=== PATIENT | male | born 1985 | race Caucasian/White ===

== ENCOUNTER 2017-08-20 14:36 | Inpatient (IN) ==
[2017-08-20] MEDS ORDERED: Sod Chloride 0.9% Inj 700 ML IV.SIG SCH (15:00)
[2017-08-20] MEDS ORDERED: Sod Chloride 0.9% Inj 1,000 ML IV.SIG SCH ×2 (15:00)
[2017-08-20] MEDS ORDERED: Vancomycin Inj 1 GM/200 ML PIGGYBACK IV.SIG ONE (15:02)
--- NOTE | 2017-08-20 15:17 | ED ---
HPI General Chief complaint: Psychiatric Symptoms Stated complaint: Psych Eval / [facility] / [facility] SO Time Seen by Provider: 08/20/17 14:57 History of Present Illness HPI narrative: Patient comes emergency department under [place] act by police. Patient denies any homicidal or suicidal ideations. Patient states that he did IV Dilaudid last night secondary to his back pain. Patient states that he was in [facility] was in the hospital there for 2 weeks after finding a "cyst" in his lumbar spine. Patient reports he was on antibiotics of Ancef was supposed be on it for total 6 weeks however he left [place] and came to [facility]. Pain is worse with certain movement. Denies anything making it better. Describes pain as a sharp pain without radiation. Denies any fevers. Loss or change in bowel or bladder. Patient is not been emptying his bladder completely for over a year now. States he saw a urologist for this. Patient is he has not slept in 2 days. Related Data Home Medications Medication Instructions Recorded Confirmed No Known Home Medications 08/20/17 08/20/17 Allergies Allergy/AdvReac Type Severity Reaction Status Date / Time piperacillin [From Zosyn] Allergy unknown Verified 08/20/17 14:58 tazobactam [From Zosyn] Allergy unknown Verified 08/20/17 14:58 Review of Systems Except as stated in HPI: all other systems reviewed are negative PMFSH Social History Social History Second Hand Smoke Exposure: Yes Smoking Status: Current every day smoker Tobacco Type: Cigarettes How Often Do You Have a Drink Containing Alcohol: 2 to 3 times a week Recent Travel in [facility] within the Last 8 Weeks: No Recent Out of Country Travel within the Last 8 Weeks: No Exam Narrative Exam Narrative: GENERAL: Well-developed, well nourished, in no acute distress, and non-ill appearing. SKIN: Focused skin assessment warm and dry. Track garcia noted upper extremity. HEAD: Atraumatic. Normocephalic. EYES: Pupils equal and round. EOMI. No scleral icterus. No injection or drainage. ENT: No nasal bleeding or discharge. Mucous membranes pink and moist. NECK: Trachea midline. Supple. No nuclear rigidity. CARDIOVASCULAR: Regular rate and rhythm. No murmur appreciated. RESPIRATORY: No accessory muscle use. No respiratory distress. Clear to auscultation. Breath sounds equal bilaterally. GASTROINTESTINAL: Abdomen soft, non-tender, nondistended, and no guarding. Hepatic and splenic margins not palpable. No pulsatile mass. MUSCULOSKELETAL: No obvious deformities. No clubbing. No cyanosis. No edema. Full range of motion. Normal gait. Patient reports tenderness palpation paravertebral spinal muscle left of the upper lumbar lower thoracic spine. NEUROLOGICAL: Awake and alert. No obvious cranial nerve deficits. Motor grossly within normal limits. Normal speech. PSYCHIATRIC: Appropriate mood and affect; insight and judgment normal. Course Initial Documented Vital Signs Temperature 100.3 F H 08/20/17 14:44 Pulse Rate 124 H 08/20/17 14:44 Respiratory Rate 16 08/20/17 14:44 Blood Pressure 123/89 08/20/17 14:44 Pulse Oximetry 96 08/20/17 14:44 Last Documented Vital Signs Temperature 100.3 F H 08/20/17 14:44 Pulse Rate 86 08/20/17 19:20 Respiratory Rate 12 08/20/17 19:20 Blood Pressure 131/80 08/20/17 19:20 Pulse Oximetry 96 08/20/17 19:20 Sign Out Sign Out Data: Patient Sign Out occurred on 08/20/17 at 19:01. Patient's care was discussed, and care was transferred from ROSY Vargas to ROSY Camejo. Sign Out Comment: Patient signed out very better pending MRI results. Last updated by Abdiel Flores PA at 08/20/17 18:58 Post-Handoff Eval: See previous providers notes for complete history of present illness. I seemed care of this patient pending MRI imaging results. He has previously received Rocephin, vancomycin and Flagyl. MRI of the lumbar spine reveals an epidural abscess at the L2-L3 space. He has low-grade fever. I discussed results with Dr. Christine who recommends Rocephin, vancomycin, admission to medicine, consultation to himself, npo after midnight. Medical Decision Making Lab Data Result diagrams: 08/20/17 14:46 08/20/17 14:46 Lab Results 08/20/17 08/20/17 08/20/17 Range/Units 14:46 14:46 14:46 WBC 11.3 H (4.0-11.0) th/mm3 RBC 3.95 L (4.50-5.90) mil/mm3 Hgb 11.7 L (13.0-17.0) gm/dL Hct 34.5 L (39.0-51.0) % MCV 87.4 (80.0-100.0) fL MCH 29.5 (27.0-34.0) pg MCHC 33.8 (32.0-36.0) % RDW 14.2 (11.6-17.2) % Plt Count 357 (150-450) th/mm3 MPV 9.1 (7.0-11.0) fL Neut % (Auto) 66.0 (16.0-70.0) % Lymph % (Auto) 20.4 (9.0-44.0) % [place] % (Auto) 8.9 H (0.0-8.0) % Eos % (Auto) 2.0 (0.0-4.0) % Baso % (Auto) 2.7 H (0.0-2.0) % Neut # (Auto) 7.5 (1.8-7.7) th/mm3 Lymph # (Auto) 2.3 (1.0-4.8) th/mm3 [place] # (Auto) 1.0 H (0.0-0.9) th/mm3 Eos # (Auto) 0.2 (0.0-0.4) th/mm3 Baso # (Auto) 0.3 H (0.0-0.2) th/mm3 WBC Differential . Differential Comment Auto diff final Sodium 133 L (136-145) meq/L Potassium 4.2 (3.5-5.1) meq/L Chloride 94 L (98-107) meq/L Carbon Dioxide 29.3 (21.0-32.0) meq/L Anion Gap 10 (5-15) meq/L BUN 16 (7-18) mg/dL Creatinine 1.10 (0.60-1.30) mg/dL Estimated GFR 79 L (>89) mL/min Random Glucose 101 (74-106) mg/dL Lactic Acid (0.4-2.0) mmol/L Calcium 9.2 (8.5-10.1) mg/dL Total Bilirubin 0.5 (0.2-1.0) mg/dL AST 84 H (15-37) U/L ALT 137 H (12-78) U/L Alkaline Phosphatase 129 H (45-117) U/L Total Creatine Kinase (39-308) U/L CK-MB (CK-2) (0.5-3.6) ng/mL CK-MB (CK-2) % (0.0-4.0) % Total Protein 8.9 H (6.4-8.2) g/dL Albumin 4.0 (3.4-5.0) g/dL TSH 0.743 (0.358-3.740) uIU/mL Urine Color (Yellw/Straw) Urine Clarity (Clear) Urine pH (5.0-8.5) Ur Specific [place] (1.002-1.035) Urine Protein (Neg-Trace) mg/dL Urine Glucose (UA) (Negative) mg/dL Urine Ketones (Negative) mg/dL Urine Occult Blood (Negative) Urine Nitrate (Negative) Urine Bilirubin (Negative) Urine Urobilinogen (Less than 2) mg/dL Ur Leukocyte Esterase (Negative) Urine RBC (0-3) /hpf Urine WBC (0-5) /hpf Urine Mucus (Occasional) /lpf Micro UA Comment Salicylates 1.8 L (2.8-20.0) mg/dL Urine Opiates Screen (Neg) Acetaminophen Less than 2.0 L (10.0-30.0) mcg/mL Ur Barbiturates Screen (Neg) Ur Amphetamines Screen (Neg) U Benzodiazepines Scrn (Neg) Urine Cocaine Screen (Neg) U Cannabinoids Screen (Neg) Serum Alcohol 3 (0-5) mg/dL 08/20/17 08/20/17 08/20/17 Range/Units 14:46 16:10 16:30 WBC (4.0-11.0) th/mm3 RBC (4.50-5.90) mil/mm3 Hgb (13.0-17.0) gm/dL Hct (39.0-51.0) % MCV (80.0-100.0) fL MCH (27.0-34.0) pg MCHC (32.0-36.0) % RDW (11.6-17.2) % Plt Count (150-450) th/mm3 MPV (7.0-11.0) fL Neut % (Auto) (16.0-70.0) % Lymph % (Auto) (9.0-44.0) % [place] % (Auto) (0.0-8.0) % Eos % (Auto) (0.0-4.0) % Baso % (Auto) (0.0-2.0) % Neut # (Auto) (1.8-7.7) th/mm3 Lymph # (Auto) (1.0-4.8) th/mm3 [place] # (Auto) (0.0-0.9) th/mm3 Eos # (Auto) (0.0-0.4) th/mm3 Baso # (Auto) (0.0-0.2) th/mm3 WBC Differential Differential Comment Sodium (136-145) meq/L Potassium (3.5-5.1) meq/L Chloride (98-107) meq/L Carbon Dioxide (21.0-32.0) meq/L Anion Gap (5-15) meq/L BUN (7-18) mg/dL Creatinine (0.60-1.30) mg/dL Estimated GFR (>89) mL/min Random Glucose (74-106) mg/dL Lactic Acid 0.6 (0.4-2.0) mmol/L Calcium (8.5-10.1) mg/dL Total Bilirubin (0.2-1.0) mg/dL AST (15-37) U/L ALT (12-78) U/L Alkaline Phosphatase (45-117) U/L Total Creatine Kinase 515 H (39-308) U/L CK-MB (CK-2) 1.9 (0.5-3.6) ng/mL CK-MB (CK-2) % 0.4 (0.0-4.0) % Total Protein (6.4-8.2) g/dL Albumin (3.4-5.0) g/dL TSH (0.358-3.740) uIU/mL Urine Color (Yellw/Straw) Urine Clarity (Clear) Urine pH (5.0-8.5) Ur Specific [place] (1.002-1.035) Urine Protein (Neg-Trace) mg/dL Urine Glucose (UA) (Negative) mg/dL Urine Ketones (Negative) mg/dL Urine Occult Blood (Negative) Urine Nitrate (Negative) Urine Bilirubin (Negative) Urine Urobilinogen (Less than 2) mg/dL Ur Leukocyte Esterase (Negative) Urine RBC (0-3) /hpf Urine WBC (0-5) /hpf Urine Mucus (Occasional) /lpf Micro UA Comment Salicylates (2.8-20.0) mg/dL Urine Opiates Screen Pos H (Neg) Acetaminophen (10.0-30.0) mcg/mL Ur Barbiturates Screen Neg (Neg) Ur Amphetamines Screen Pos H (Neg) U Benzodiazepines Scrn Neg (Neg) Urine Cocaine Screen Pos (Neg) U Cannabinoids Screen Neg (Neg) Serum Alcohol (0-5) mg/dL 08/20/17 Range/Units 16:30 WBC (4.0-11.0) th/mm3 RBC (4.50-5.90) mil/mm3 Hgb (13.0-17.0) gm/dL Hct (39.0-51.0) % MCV (80.0-100.0) fL MCH (27.0-34.0) pg MCHC (32.0-36.0) % RDW (11.6-17.2) % Plt Count (150-450) th/mm3 MPV (7.0-11.0) fL Neut % (Auto) (16.0-70.0) % Lymph % (Auto) (9.0-44.0) % [place] % (Auto) (0.0-8.0) % Eos % (Auto) (0.0-4.0) % Baso % (Auto) (0.0-2.0) % Neut # (Auto) (1.8-7.7) th/mm3 Lymph # (Auto) (1.0-4.8) th/mm3 [place] # (Auto) (0.0-0.9) th/mm3 Eos # (Auto) (0.0-0.4) th/mm3 Baso # (Auto) (0.0-0.2) th/mm3 WBC Differential Differential Comment Sodium (136-145) meq/L Potassium (3.5-5.1) meq/L Chloride (98-107) meq/L Carbon Dioxide (21.0-32.0) meq/L Anion Gap (5-15) meq/L BUN (7-18) mg/dL Creatinine (0.60-1.30) mg/dL Estimated GFR (>89) mL/min Random Glucose (74-106) mg/dL Lactic Acid (0.4-2.0) mmol/L Calcium (8.5-10.1) mg/dL Total Bilirubin (0.2-1.0) mg/dL AST (15-37) U/L ALT (12-78) U/L Alkaline Phosphatase (45-117) U/L Total Creatine Kinase (39-308) U/L CK-MB (CK-2) (0.5-3.6) ng/mL CK-MB (CK-2) % (0.0-4.0) % Total Protein (6.4-8.2) g/dL Albumin (3.4-5.0) g/dL TSH (0.358-3.740) uIU/mL Urine Color Yellow (Yellw/Straw) Urine Clarity Clear (Clear) Urine pH 5.0 (5.0-8.5) Ur Specific [place] 1.020 (1.002-1.035) Urine Protein Negative (Neg-Trace) mg/dL Urine Glucose (UA) Negative (Negative) mg/dL Urine Ketones Negative (Negative) mg/dL Urine Occult Blood Negative (Negative) Urine Nitrate Negative (Negative) Urine Bilirubin Negative (Negative) Urine Urobilinogen 2.0 H (Less than 2) mg/dL Ur Leukocyte Esterase Negative (Negative) Urine RBC Less than 1 (0-3) /hpf Urine WBC 2 (0-5) /hpf Urine Mucus Few H (Occasional) /lpf Micro UA Comment Culture not ind Salicylates (2.8-20.0) mg/dL Urine Opiates Screen (Neg) Acetaminophen (10.0-30.0) mcg/mL Ur Barbiturates Screen (Neg) Ur Amphetamines Screen (Neg) U Benzodiazepines Scrn (Neg) Urine Cocaine Screen (Neg) U Cannabinoids Screen (Neg) Serum Alcohol (0-5) mg/dL Imaging Data Radiologist's impression: ITS Impressions Lumbar Spine MRI 08/20/17 14:58 CONCLUSION: 1. Posterior epidural abscess. This is at the L2-L3 level. This left the inflammatory change appears to be centered around the left L2-3 facet joint with extension in the posterior epidural space and the posterior paraspinous soft tissues. The abscess in the posterior epidural space measures approximately 1.6 cm in diameter. There is a 1.2 x 0.8 x 0.6 cm small abscess in the posterior left paraspinous soft tissues. 2. Mild disc protrusion at the left lateral recess and left neural foraminal region causing narrowing of the left neural foramina at the L4-L5 level. Thoracic Spine MRI 08/20/17 14:58 CONCLUSION: 1. No areas of discitis or osteomyelitis are seen. 2. Mild disc changes at the mid thoracic spine as described above. Discharge Plan Discharge Disposition Patient Disposition: 30 Still Patient Discharge Condition Condition: Stable Discharge Details Discharge Problem: Epidural abscess Physicians Team ED Provider: Damien Cam ED Midlevel Provider: Albert Noble Primary Care Provider: Primary Care Shruti Dangelo Rxs /Orders / Referrals /Forms Prescriptions: No Action No Known Home Medications RF: 0 Status ED Status: With Doctor
[2017-08-20] MEDS ORDERED: Vancomycin Inj 1,000 MG in Sodium Chlor 0.9% Inj 250 ML IV.SIG ONE (15:30)
[2017-08-20 15:33] LABS: Baso # (Auto) 0.3 th/mm3 (0.0-0.2); Baso % (Auto) 2.7 % (0.0-2.0); Eos # (Auto) 0.2 th/mm3 (0.0-0.4); Hematocrit 34.5 % (39.0-51.0); Hemoglobin 11.7 gm/dL (13.0-17.0); Lymph # (Auto) 2.3 th/mm3 (1.0-4.8); Lymph % (Auto) 20.4 % (9.0-44.0); Mean Corpuscular HGB Conc 33.8 % (32.0-36.0); Mean Corpuscular Hemoglobin 29.5 pg (27.0-34.0); Mean Corpuscular Volume 87.4 fL (80.0-100.0); Mean Platelet Volume 9.1 fL (7.0-11.0); Mono % (Auto) 8.9 % (0.0-8.0); Neut # (Auto) 7.5 th/mm3 (1.8-7.7); Platelet Count 357 th/mm3 (150-450); Red Blood Count 3.95 mil/mm3 (4.50-5.90); Red Cell Distribution Width 14.2 % (11.6-17.2); White Blood Count 11.3 th/mm3 (4.0-11.0)
[2017-08-20 16:08] LABS: Alkaline Phosphatase 129 U/L (45-117); Thyroid Stimulating Hormone 0.743 uIU/mL (0.358-3.740); Total Protein 8.9 g/dL (6.4-8.2)
[2017-08-20 16:18] LABS: Alanine Aminotransferase 137 U/L (12-78); Alcohol 3 mg/dL (0-5); Anion Gap 10 meq/L (5-15); Aspartate Aminotransferase 84 U/L (15-37); Blood Urea Nitrogen 16 mg/dL (7-18); Calcium 9.2 mg/dL (8.5-10.1); Carbon Dioxide 29.3 meq/L (21.0-32.0); Chloride 94 meq/L (98-107); Glomerular Filtration Rate 79 mL/min (>89); Glucose,Random 101 mg/dL (74-106); Potassium 4.2 meq/L (3.5-5.1); Sodium 133 meq/L (136-145)
[2017-08-20 16:51] LABS: Bilirubin,Urine Negative (Negative); Clarity,Urine Clear (Clear); Color,Urine Yellow (Yellw/Straw); Glucose,Urine (UA) Negative (Negative); Leukocyte Esterase,Urine Negative (Negative); Mucus,Urine Few /lpf (Occasional); Nitrite,Urine Negative (Negative)
[2017-08-20 16:52] LABS: Amphetamine Screen,Urine Pos (Neg); Barbiturate Screen,Urine Neg (Neg); Cannabinoid Screen,Urine Neg (Neg); Cocaine Screen,Urine Pos (Neg)
[2017-08-20 17:03] LABS: Opiate Screen,Urine Pos (Neg)
--- NOTE | 2017-08-20 18:07 | MR ---
EXAM DATE: 08/20/2017 6:00 PM EDT AGE/SEX: 32 years / Male INDICATIONS: Abscess. CLINICAL DATA: This is the patient's initial encounter. Patient reports that signs and symptoms have been present for 1 month and indicates a pain score of 9/10. MEDICAL/SURGICAL HISTORY: Renal calculi. Appendectomy. Rt leg sx. COMPARISON: No prior exams available for comparison. TECHNIQUE: Multiplanar, multisequence MRI of the thoracic spine was performed without and with 18 ml Omniscan (gadodiamide) contrast as a single exam dose. FINDINGS: Vertebrae: Normal vertebral body height. Homogeneous marrow signal. Alignment: Normal. Cord: Normal position and configuration. Post Contrast: No abnormal areas of enhancement are seen in the cord, dural or paraspinal regions. There is decreased signal and mild suspected bulging at the C6-C7 disc level seen on this sagittal im ages. T1-T2: The thecal sac has a normal diameter. No evidence of disc bulge or protrusion. T2-T3: The thecal sac has a normal diameter. No evidence of disc bulge or protrusion. T3-T4: The thecal sac has a normal diameter. No evidence of disc bulge or protrusion. T4-T5: There is a minimal central disc protrusion without significant stenosis. T5-T6: The thecal sac has a normal diameter. No evidence of disc bulge or protrusion. T6-T7: There is a mild right paracentral disc protrusion causing a mild impression on the anterior a spect of the thecal sac. T7-T8: There is a minimal right lateral recess disc protrusion without significant stenosis. T8-T9: The thecal sac has a normal diameter. No evidence of disc bulge or protrusion. T9-T10: The thecal sac has a normal diameter. No evidence of disc bulge or protrusion. T10-T11: The thecal sac has a normal diameter. No evidence of disc bulge or protrusion. T11-T12: The thecal sac has a normal diameter. No evidence of disc bulge or protrusion. T12-L1: The thecal sac has a normal diameter. No evidence of disc bulge or protrusion. CONCLUSION: 1. No areas of discitis or osteomyelitis are seen. 2. Mild disc changes at the mid thoracic spine as described above. Electronically signed by: Joel Stack MD 08/20/2017 6:06 PM EDT
[2017-08-20] MEDS ORDERED: Gadodiamide PF Inj 287 MG/ML 5 ML Syringe (for RAD MRI) IVCONTRAST ONE (18:11)
[2017-08-20 18:46] LABS: CKMB Percent 0.4 % (0.0-4.0); Creatine Kinase MB 1.9 ng/mL (0.5-3.6)
--- NOTE | 2017-08-20 20:48 | MR ---
EXAM DATE: 08/20/2017 6:11 PM EDT AGE/SEX: 32 years / Male INDICATIONS: Abscess. CLINICAL DATA: This is the patient's initial encounter. Patient reports that signs and symptoms have been present for 1 month and indicates a pain score of 9/10. MEDICAL/SURGICAL HISTORY: Renal calculi. Abscess dx at another hospital in [facility] region. Appende ctomy. Rt leg sx. COMPARISON: No prior exams available for comparison. TECHNIQUE: Multiplanar, multisequence MRI examination of the lumbar spine was performed without and with 18 ml Omniscan (gadodiamide) contrast as a single exam dose. FINDINGS: The most caudal-appearing lumbar vertebra is numbered as L5. Vertebra: The vertebral bodies are intact. There is an epidural mass seen posteriorly at the L2 and L3 levels. There is a 1.6 cm focus likely related to an abscess in the posterior epidural space at th e L2-L3 level. The posterior epidural abscess with surrounding inflammatory change results in severe stenosis with the AP dimension of the thecal sac narrowed to 2.5 mm. There is edema and inflammatory change/enhancement seen throughout the soft tissues posteriorly on the left at the L1-L4 levels. Ther e appears to be a focal abscess within the soft tissues at the posterior left L3 level measuring 1.2 x 0.8 x 0.6 cm. This appears to extend to the posterior aspect of the left 2-L3 facet joint. There is edema within the inferior facet on the left at L2 and the superior facet and pedicle at the left L3 level. The posterior epidural abscess is seen at the same level. Conus: Normal level and configuration. Post Contrast: There is enhancement in the posterior epidural space at the L2-L3 level. Much this en hancement appears to be centered at the left L2-L3 facet joint. There is enhancement extending into t he posterior soft tissues on the left at the L1-L4 levels. T12-L1: The thecal sac has a normal diameter. No evidence of disc bulge or protrusion. The neural foramina are patent bilaterally. L1-L2: The thecal sac has a normal diameter. No evidence of disc bulge or protrusion. The neural foramina are patent bilaterally. L2-L3: Again noted is the posterior epidural abscess causing severe stenosis. No significant CSF is seen around the nerve roots at this level. L3-L4: The thecal sac has a normal diameter. No evidence of disc bulge or protrusion. The neural foramina are patent bilaterally. L4-L5: The disc demonstrates mild decreased signal. There is a left lateral recess to left neural f oraminal disc protrusion causing narrowing of the left neural foramina. The thecal sac is otherwise n ormal. There is left facet hypertrophy. The right neural foramina is patent. L5-S1: The thecal sac has a normal diameter. No evidence of disc bulge or protrusion. The neural foramina are patent bilaterally. CONCLUSION: 1. Posterior epidural abscess. This is at the L2-L3 level. This left the inflammatory change appears to be centered around the left L2-3 facet joint with extension in the posterior epidural space and t he posterior paraspinous soft tissues. The abscess in the posterior epidural space measures approxima tely 1.6 cm in diameter. There is a 1.2 x 0.8 x 0.6 cm small abscess in the posterior left paraspinou s soft tissues. 2. Mild disc protrusion at the left lateral recess and left neural foraminal region causing narrowin g of the left neural foramina at the L4-L5 level. Electronically signed by: Joel Stack MD 08/20/2017 8:47 PM EDT
[2017-08-20] MEDS ORDERED: Acetaminophen 325 MG Tablet PO PRN (22:24)
[2017-08-20] MEDS ORDERED: Bisacodyl 10 MG Supp RECTAL PRN (22:24)
--- NOTE | 2017-08-20 22:34 | P.HP ---
History of Present Illness Service: [facility] Primary Care Physician: No Primary Care Physician Chief Complaint: Charlton act/low back pain History of Present Illness: 32-year-old male with a past medical history significant for IV drug abuse presents to the emergency department under Charlton act. According to the patient , his girlfriend called to have him Zoltan acted after they had been up for a significant amount of time doing drugs. The patient tested positive for opiates and methamphetamine. He complained of lower back pain and was found to have a posterior epidural abscess at the L2-L3 level. Per patient report, he was previously treated for bacteremia and a epidural "cyst" in [place] at [facility]. He reports a 10 day total hospitalization with vancomycin 6 days which was then switched to Ancef. He reports his most recent blood cultures were negative. He left AGAINST MEDICAL ADVICE. The patient denies any recent fevers or chills. Endorses low back pain. Denies any chest pain or shortness of breath. No abdominal pain. No nausea/vomiting/ diarrhea. No new splinter hemorrhages or lesions. Inpatient Certification: I certify that the inpatient services were ordered in accordance with Medicare regulations governing the order. This includes certification that hospital inpatient services are reasonable and necessary and in the case of services not specified as inpatient-only under 42 CFR 419.22(n), that they are appropriately provided as inpatient services in accordance to with the 2-midnight benchmark under 43 CFR 412.3(e) Estimated Total Length of Stay (Days): 5 Plans for Post Hospital Care: Not yet determined Review of Systems All other systems reviewed negative except as stated in [facility] - History History Provided By: Patient - Medical History Medical History: Medical History (Last Updated 08/20/17 @ 22:29 by Manuela De La Vega MD) IV drug abuse - Surgical History Surgical History: Surgical History (Last Updated 08/20/17 @ 22:30 by Manuela De La Vega MD) History of appendectomy - Family History Family History: Family History (Last Updated 08/20/17 @ 22:30 by Manuela De La Vega MD) Other Diabetes - Tobacco History Second Hand Smoke Exposure: Yes Tobacco Use In Past 30 Days: Yes Smoking Status: Current every day smoker Tobacco Type: Cigarettes - Alcohol History How Often Do You Have a Drink Containing Alcohol: 2 to 3 times a week - Substance Use History Substance History: Active Abuse (IV opiate abuse including Dilaudid and heroin) - Travel History Recent Travel in the [place] Within the Last 8 Weeks: No Recent Travel Out of the Country Within the Last 8 Weeks: No - Immunization History Tetanus Immunization: <5 Years Medications and Allergies Active Medications: Active Medications Sodium Chloride (Ns Inj) 1,000 mls @ 0 mls/hr IV.SIG .Q0M [facility] Last Admin: 08/20/17 18:39 Dose: 1,000 mls/hr Sodium Chloride (Ns Inj) 1,000 mls @ 0 mls/hr IV.SIG .Q0M [facility]ER Last Admin: 08/20/17 18:39 Dose: 1,000 mls/hr Sodium Chloride (Ns Inj) 700 mls @ 0 mls/hr IV.SIG .Q0M B[facility]ER Last Admin: 08/20/17 18:40 Dose: 1,000 mls/hr Allergies Allergy/AdvReac Type Severity Reaction Status Date / Time piperacillin [From Zosyn] Allergy unknown Verified 08/20/17 14:58 tazobactam [From Zosyn] Allergy unknown Verified 08/20/17 14:58 Home Medications Medication Instructions Recorded Confirmed Type No Known Home Medications 08/20/17 08/20/17 History Exam Vital signs: Vital Signs 08/20/17 14:44 08/20/17 16:29 08/20/17 18:37 Temperature 100.3 F H Pulse Rate 124 H 87 89 Respiratory Rate 16 17 17 Blood Pressure 123/89 113/63 Pulse Oximetry 96 100 100 08/20/17 19:20 Temperature Pulse Rate 86 Respiratory Rate 12 Blood Pressure 131/80 Pulse Oximetry 96 Intake & Output 08/20/17 08/20/17 08/21/17 06:59 18:59 06:59 Weight 90 kg Narrative: Gen.: No acute distress Head: Normocephalic. Atraumatic. EENT: Pupils equal round and reactive to light. Nose without drainage. Airway intact. Throat without injection. Cardiovascular: Regular rate and rhythm. No murmurs, rubs or gallops. Respiratory: Lungs clear to auscultation bilaterally. No wheezes or rhonchi. Abdomen: Soft, nontender, nondistended. No peritoneal signs. Musculoskeletal: No gross deformities. No edema. Skin: No obvious rashes or erythema. No [place] lesions or splinter hemorrhages. Neuro: Sensory and motor grossly intact. Cranial nerves II through XII grossly intact. Psych: Appropriate mood and affect Results - Labs CBC & Chem 7: 08/20/17 14:46 08/20/17 14:46 Labs: Laboratory Results - last 24 hr 08/20/17 08/20/17 08/20/17 14:46 14:46 14:46 WBC 11.3 H RBC 3.95 L Hgb 11.7 L Hct 34.5 L MCV 87.4 MCH 29.5 MCHC 33.8 RDW 14.2 Plt Count 357 MPV 9.1 Neut % (Auto) 66.0 Lymph % (Auto) 20.4 [place] % (Auto) 8.9 H Eos % (Auto) 2.0 Baso % (Auto) 2.7 H Neut # (Auto) 7.5 Lymph # (Auto) 2.3 [place] # (Auto) 1.0 H Eos # (Auto) 0.2 Baso # (Auto) 0.3 H WBC Differential . Differential Comment Auto diff final Sodium 133 L Potassium 4.2 Chloride 94 L Carbon Dioxide 29.3 Anion Gap 10 BUN 16 Creatinine 1.10 Estimated GFR 79 L Random Glucose 101 Lactic Acid Calcium 9.2 Total Bilirubin 0.5 AST 84 H ALT 137 H Alkaline Phosphatase 129 H Total Creatine Kinase CK-MB (CK-2) CK-MB (CK-2) % Total Protein 8.9 H Albumin 4.0 TSH 0.743 Urine Color Urine Clarity Urine pH Ur Specific [place] Urine Protein Urine Glucose (UA) Urine Ketones Urine Occult Blood Urine Nitrate Urine Bilirubin Urine Urobilinogen Ur Leukocyte Esterase Urine RBC Urine WBC Urine Mucus Micro UA Comment Salicylates 1.8 L Urine Opiates Screen Acetaminophen Less than 2.0 L Ur Barbiturates Screen Ur Amphetamines Screen U Benzodiazepines Scrn Urine Cocaine Screen U Cannabinoids Screen Serum Alcohol 3 08/20/17 08/20/17 08/20/17 14:46 16:10 16:30 WBC RBC Hgb Hct MCV MCH MCHC RDW Plt Count MPV Neut % (Auto) Lymph % (Auto) [place] % (Auto) Eos % (Auto) Baso % (Auto) Neut # (Auto) Lymph # (Auto) [place] # (Auto) Eos # (Auto) Baso # (Auto) WBC Differential Differential Comment Sodium Potassium Chloride Carbon Dioxide Anion Gap BUN Creatinine Estimated GFR Random Glucose Lactic Acid 0.6 Calcium Total Bilirubin AST ALT Alkaline Phosphatase Total Creatine Kinase 515 H CK-MB (CK-2) 1.9 CK-MB (CK-2) % 0.4 Total Protein Albumin TSH Urine Color Urine Clarity Urine pH Ur Specific [place] Urine Protein Urine Glucose (UA) Urine Ketones Urine Occult Blood Urine Nitrate Urine Bilirubin Urine Urobilinogen Ur Leukocyte Esterase Urine RBC Urine WBC Urine Mucus Micro UA Comment Salicylates Urine Opiates Screen Pos H Acetaminophen Ur Barbiturates Screen Neg Ur Amphetamines Screen Pos H U Benzodiazepines Scrn Neg Urine Cocaine Screen Pos U Cannabinoids Screen Neg Serum Alcohol 08/20/17 16:30 WBC RBC Hgb Hct MCV MCH MCHC RDW Plt Count MPV Neut % (Auto) Lymph % (Auto) Harper % (Auto) Eos % (Auto) Baso % (Auto) Neut # (Auto) Lymph # (Auto) Harper # (Auto) Eos # (Auto) Baso # (Auto) WBC Differential Differential Comment Sodium Potassium Chloride Carbon Dioxide Anion Gap BUN Creatinine Estimated GFR Random Glucose Lactic Acid Calcium Total Bilirubin AST ALT Alkaline Phosphatase Total Creatine Kinase CK-MB (CK-2) CK-MB (CK-2) % Total Protein Albumin TSH Urine Color Yellow Urine Clarity Clear Urine pH 5.0 Ur Specific [place] 1.020 Urine Protein Negative Urine Glucose (UA) Negative Urine Ketones Negative Urine Occult Blood Negative Urine Nitrate Negative Urine Bilirubin Negative Urine Urobilinogen 2.0 H Ur Leukocyte Esterase Negative Urine RBC Less than 1 Urine WBC 2 Urine Mucus Few H Micro UA Comment Culture not ind Salicylates Urine Opiates Screen Acetaminophen Ur Barbiturates Screen Ur Amphetamines Screen U Benzodiazepines Scrn Urine Cocaine Screen U Cannabinoids Screen Serum Alcohol - Imaging Impressions Lumbar Spine MRI 08/20/17 14:58 CONCLUSION: 1. Posterior epidural abscess. This is at the L2-L3 level. This left the inflammatory change appears to be centered around the left L2-3 facet joint with extension in the posterior epidural space and the posterior paraspinous soft tissues. The abscess in the posterior epidural space measures approximately 1.6 cm in diameter. There is a 1.2 x 0.8 x 0.6 cm small abscess in the posterior left paraspinous soft tissues. 2. Mild disc protrusion at the left lateral recess and left neural foraminal region causing narrowing of the left neural foramina at the L4-L5 level. Thoracic Spine MRI 08/20/17 14:58 CONCLUSION: 1. No areas of discitis or osteomyelitis are seen. 2. Mild disc changes at the mid thoracic spine as described above. Caprini VTE Risk Assessment Caprini VTE Risk Assessment: No/Low Risk (score <= 1) Caprini Risk Assessment Model: Point Value = 1 Point Value = 2 Point Value = 3 Point Value = 5 Age 41-60 Minor surgery BMI > 25 kg/m2 Swollen legs Varicose veins or History of unexplained or recurrent spontaneous Oral contraceptives or hormone replacement Sepsis (< 1 month) Serious lung disease, including pneumonia (< 1 month) Abnormal pulmonary function Acute myocardial infarction Congestive heart failure (< 1 month) History of inflammatory bowel disease Medical patient at bed rest Age 61-74 Arthroscopic surgery Major open surgery (> 45 min) Laparoscopic surgery (> 45 min) Malignancy Confined to bed (> 72 hours) Immobilizing plaster cast Central venous access Age >= 75 History of VTE Family history of VTE Factor V Leiden Prothrombin [id number] Lupus anticoagulant Anticardiolipin antibodies Elevated serum homocysteine Heparin-induced thrombocytopenia Other congenital or acquired thrombophilia Stroke (< 1 month) Elective arthroplasty Hip, pelvis, or leg fracture Acute spinal cord injury (< 1 month) Prophylaxis Regimen: Total Risk Factor Score Risk Level Prophylaxis Regimen 0-1 Low Early ambulation 2 Moderate Order ONE of the following: *Sequential Compression Device (SCD) *Heparin 5000 units SQ BID 3-4 Higher Order ONE of the following medications: *Heparin 5000 units SQ TID *Enoxaparin/Lovenox 40 mg SQ daily (WT < 150 kg, CrCl > 30 mL/min) *Enoxaparin/Lovenox 30 mg SQ daily (WT < 150 kg, CrCl > 10-29 mL/min) *Enoxaparin/Lovenox 30 mg SQ BID (WT < 150 kg, CrCl > 30 mL/min) AND/OR *Sequential Compression Device (SCD) 5 or more Highest Order ONE of the following medications: *Heparin 5000 units SQ TID (Preferred with Epidurals) *Enoxaparin/Lovenox 40 mg SQ daily (WT < 150 kg, CrCl > 30 mL/min) *Enoxaparin/Lovenox 30 mg SQ daily (WT < 150 kg, CrCl > 10-29 mL/min) *Enoxaparin/Lovenox 30 mg SQ BID (WT < 150 kg, CrCl > 30 mL/min) AND *Sequential Compression Device (SCD) Assessment and Plan - Plan Assessment/plan: 1. Discitis MRI of the lumbar spine revealed epidural abscess at the level of L2-L3 Neurosurgery consulted, appreciate recommendations Vancomycin and Rocephin per neurosurgery recommendations Infectious disease consulted, appreciate recommendations Blood cultures pending Echo pending to rule out endocarditis Patient recently treated for bacteremia and discitis -records requested from previous hospital 2. IV drug abuse Cessation counseling provided Toradol for pain 3. Charlton act Psychiatry consulted, appreciate assistance FEN N.p.o. Electrolytes: Monitor and replete as needed NS at 100 cc/hour
[2017-08-20] MEDS ORDERED: Vancomycin Consult Pharmacy 1 EACH OTHER SCH (23:00)
[2017-08-20] MEDS: Sod Chloride 0.9% Inj 1,000 ML IV.CONT SCH (23:55)
[2017-08-21] MEDS: Temazepam 15 MG Capsule PO PRN ×2 (01:04→23:57)
[2017-08-21] MEDS: Ketorolac Inj 30 MG/ML (IVP) Vial IV.PUSH PRN ×3 (01:04→23:34)
[2017-08-21] MEDS ORDERED: Vancomycin Inj 2,000 MG in Sodium Chlor 0.9% Inj 500 ML IV.SIG SCH (03:00)
[2017-08-21] MEDS ORDERED: Vancomycin Inj 1,000 MG in Sodium Chlor 0.9% Inj 250 ML IV.SIG SCH (04:00)
[2017-08-21] MEDS: Senna/Docusate Sodium 8.6/50 MG Tablet PO SCH ×3 (09:24→21:40)
[2017-08-21] MEDS: Sod Chloride 0.9% Inj 1,000 ML IV.CONT SCH ×2 (09:25→21:40)
--- NOTE | 2017-08-21 09:38 | P.PN ---
Subjective Interval history: Follow up for discitis. The patient reports continued low back pain, worse at the left lumbar paraspinous muscles. He denies any weakness of the lower extremities. He has been ambulating to the bathroom without difficulty. The patient reports that he initially presented to [facility] 2 weeks ago with a 1-2 day history of low back pain and fevers. He states he was diagnosed with discitis and bacteremia. He was started on IV Vanco and then switched to IV Ancef and received treatment for approximately 10 days, however he decided to move back to [facility] and therefore left the hospital [place] 4 days ago. He admits to IV, last injected IV dilaudid 2 nights ago. He states while he was hospitalized he had an echocardiogram that was reportedly unremarkable. He states repeat blood cultures were also negative. He does not know what bacteria was in his cultures. He denies any chest pain, palpitations, shortness of breath. He has no other medical complaints at this time. Physical Exam Vital signs: Vital Signs 08/20/17 14:44 08/20/17 16:29 08/20/17 18:37 Temperature 100.3 F H Pulse Rate 124 H 87 89 Respiratory Rate 16 17 17 Blood Pressure 123/89 113/63 Pulse Oximetry 96 100 100 08/20/17 19:20 08/21/17 00:06 08/21/17 00:58 Temperature 98.2 F Pulse Rate 86 72 80 Respiratory Rate 12 18 18 Blood Pressure 131/80 115/72 114/78 Pulse Oximetry 96 95 97 08/21/17 04:00 08/21/17 07:21 Temperature 97.5 F L 97.9 F Pulse Rate 61 72 Respiratory Rate 17 12 Blood Pressure 112/79 110/60 Pulse Oximetry 99 99 Intake & Output 08/20/17 08/21/17 08/21/17 18:59 06:59 18:59 Intake Total 2770 / 2770 720 / 720 Output Total 600 / 600 Balance 2770 / 2770 120 / 120 Weight 90 kg Intake: IV 2770 / 2770 NS Inj 700 ML @ Wide Open IV. 1700 / 1700 SIG .Q0M [facility] Rx#:[id number] Vancomycin Inj 1,000 MG In NS 250 / 250 Inj 250 ML @ 250 mls/hr IV.SIG ONCE ONE Rx#:[id number] Vancomycin Inj 2,000 MG In NS 520 / 520 Inj 500 ML @ 250 mls/hr IV.SIG DAILY@0300 [facility] Rx#:[id number] Rocephin Inj 2,000 MG In NS Inj 100 / 100 100 ML @ 200 mls/hr IV.SIG Q12H [facility] Rx#:[id number] Flagyl 500 MG Inj 100 ML @ 100 100 / 100 mls/hr IV.SIG ONCE ONE Rx#: [id number] Oral 720 / 720 Output: Urine 600 / 600 Other: Date of Last Bowel Movement 08/20/17 08/21/17 Narrative: GENERAL: Well-nourished, well-developed young male patient in [facility]. SKIN: Warm and dry. No rash. HEENT: Normocephalic. Atraumatic. Pupils equal and round. Mucous membranes pink and moist. CARDIOVASCULAR: Regular rate and rhythm. No murmur appreciated. RESPIRATORY: No accessory muscle use. Clear to auscultation. Breath sounds equal bilaterally. GASTROINTESTINAL: Abdomen soft, non-tender, nondistended. Normoactive bowel sounds x4. MUSCULOSKELETAL: No obvious deformities. Extremities without clubbing, cyanosis , or edema. Left lumbar paraspinous muscle tenderness to palpation, no bony point tenderness. NEUROLOGICAL: Awake and alert. No obvious cranial nerve deficits. Motor grossly within normal limits. 5/5 strength bilateral lower extremities. Distal lower extremity sensation equal and intact. Normal speech. PSYCHIATRIC: Appropriate mood and affect; insight and judgment normal. Results - Labs CBC & Chem 7: 08/21/17 09:04 08/21/17 09:04 Laboratory Results - last 24 hr 08/20/17 08/20/17 08/20/17 14:46 14:46 14:46 WBC 11.3 H RBC 3.95 L Hgb 11.7 L Hct 34.5 L MCV 87.4 MCH 29.5 MCHC 33.8 RDW 14.2 Plt Count 357 MPV 9.1 Neut % (Auto) 66.0 Lymph % (Auto) 20.4 [place] % (Auto) 8.9 H Eos % (Auto) 2.0 Baso % (Auto) 2.7 H Neut # (Auto) 7.5 Lymph # (Auto) 2.3 [place] # (Auto) 1.0 H Eos # (Auto) 0.2 Baso # (Auto) 0.3 H WBC Differential . Differential Comment Auto diff final Sodium 133 L Potassium 4.2 Chloride 94 L Carbon Dioxide 29.3 Anion Gap 10 BUN 16 Creatinine 1.10 Estimated GFR 79 L Random Glucose 101 Lactic Acid Calcium 9.2 Total Bilirubin 0.5 AST 84 H ALT 137 H Alkaline Phosphatase 129 H Total Creatine Kinase CK-MB (CK-2) CK-MB (CK-2) % Total Protein 8.9 H Albumin 4.0 TSH 0.743 Urine Color Urine Clarity Urine pH Ur Specific [place] Urine Protein Urine Glucose (UA) Urine Ketones Urine Occult Blood Urine Nitrate Urine Bilirubin Urine Urobilinogen Ur Leukocyte Esterase Urine RBC Urine WBC Urine Mucus Micro UA Comment Salicylates 1.8 L Urine Opiates Screen Acetaminophen Less than 2.0 L Ur Barbiturates Screen Ur Amphetamines Screen U Benzodiazepines Scrn Urine Cocaine Screen U Cannabinoids Screen Serum Alcohol 3 08/20/17 08/20/17 08/20/17 14:46 16:10 16:30 WBC RBC Hgb Hct MCV MCH MCHC RDW Plt Count MPV Neut % (Auto) Lymph % (Auto) [place] % (Auto) Eos % (Auto) Baso % (Auto) Neut # (Auto) Lymph # (Auto) [place] # (Auto) Eos # (Auto) Baso # (Auto) WBC Differential Differential Comment Sodium Potassium Chloride Carbon Dioxide Anion Gap BUN Creatinine Estimated GFR Random Glucose Lactic Acid 0.6 Calcium Total Bilirubin AST ALT Alkaline Phosphatase Total Creatine Kinase 515 H CK-MB (CK-2) 1.9 CK-MB (CK-2) % 0.4 Total Protein Albumin TSH Urine Color Urine Clarity Urine pH Ur Specific [place] Urine Protein Urine Glucose (UA) Urine Ketones Urine Occult Blood Urine Nitrate Urine Bilirubin Urine Urobilinogen Ur Leukocyte Esterase Urine RBC Urine WBC Urine Mucus Micro UA Comment Salicylates Urine Opiates Screen Pos H Acetaminophen Ur Barbiturates Screen Neg Ur Amphetamines Screen Pos H U Benzodiazepines Scrn Neg Urine Cocaine Screen Pos U Cannabinoids Screen Neg Serum Alcohol 08/20/17 16:30 WBC RBC Hgb Hct MCV MCH MCHC RDW Plt Count MPV Neut % (Auto) Lymph % (Auto) [place] % (Auto) Eos % (Auto) Baso % (Auto) Neut # (Auto) Lymph # (Auto) [place] # (Auto) Eos # (Auto) Baso # (Auto) WBC Differential Differential Comment Sodium Potassium Chloride Carbon Dioxide Anion Gap BUN Creatinine Estimated GFR Random Glucose Lactic Acid Calcium Total Bilirubin AST ALT Alkaline Phosphatase Total Creatine Kinase CK-MB (CK-2) CK-MB (CK-2) % Total Protein Albumin TSH Urine Color Yellow Urine Clarity Clear Urine pH 5.0 Ur Specific [place] 1.020 Urine Protein Negative Urine Glucose (UA) Negative Urine Ketones Negative Urine Occult Blood Negative Urine Nitrate Negative Urine Bilirubin Negative Urine Urobilinogen 2.0 H Ur Leukocyte Esterase Negative Urine RBC Less than 1 Urine WBC 2 Urine Mucus Few H Micro UA Comment Culture not ind Salicylates Urine Opiates Screen Acetaminophen Ur Barbiturates Screen Ur Amphetamines Screen U Benzodiazepines Scrn Urine Cocaine Screen U Cannabinoids Screen Serum Alcohol - Imaging Impressions Lumbar Spine MRI 08/20/17 14:58 CONCLUSION: 1. Posterior epidural abscess. This is at the L2-L3 level. This left the inflammatory change appears to be centered around the left L2-3 facet joint with extension in the posterior epidural space and the posterior paraspinous soft tissues. The abscess in the posterior epidural space measures approximately 1.6 cm in diameter. There is a 1.2 x 0.8 x 0.6 cm small abscess in the posterior left paraspinous soft tissues. 2. Mild disc protrusion at the left lateral recess and left neural foraminal region causing narrowing of the left neural foramina at the L4-L5 level. Thoracic Spine MRI 08/20/17 14:58 CONCLUSION: 1. No areas of discitis or osteomyelitis are seen. 2. Mild disc changes at the mid thoracic spine as described above. Assessment and Plan - Plan 32-year-old male with history of IVDU with Dilaudid presents under Charlton act by law enforcement initiated by the girlfriend secondary to ongoing drug use. The patient is s/p recent 10 day hospitalization in [place] at [facility] for discitis/bacteremia, treated with IV Vanco then IV Ancef, however left AMA 4 days ago to return to [facility]. Acute Epidural Abscess: MRI of the lumbar spine reviewed, shows epidural abscess at the level of L2-L3 and small abscess at the left paraspinous soft tissues. -Neurosurgery consulted, appreciate recommendations, plans for surgical intervention today 08/21 -Continue antibiotics with IV Vancomycin and Rocephin per neurosurgery recommendations -Infectious disease consulted, appreciate recommendations -Blood cultures pending -Echo pending to rule out endocarditis -Records requested from previous hospital -Keep NPO IV drug abuse: acute on chronic -Counseled on cessation -IV Toradol prn pain Charlton act: -Psychiatry consulted, appreciate assistance DVT Prophylaxis: teds/SCDs; avoid chemoprophylaxis with upcoming surgery Discharge Planning: Going to OR today. Will likely require group home antibiotics. Await cultures, neurosurgery clearance, and ID recommendations.
[2017-08-21 09:48] LABS: Baso % (Auto) 0.8 % (0.0-2.0); Eos # (Auto) 0.2 th/mm3 (0.0-0.4); Eos % (Auto) 3.7 % (0.0-4.0); Hematocrit 33.9 % (39.0-51.0); Hemoglobin 11.3 gm/dL (13.0-17.0); Lymph # (Auto) 1.8 th/mm3 (1.0-4.8); Lymph % (Auto) 38.7 % (9.0-44.0); Mean Corpuscular HGB Conc 33.3 % (32.0-36.0); Mean Corpuscular Hemoglobin 29.8 pg (27.0-34.0); Mean Corpuscular Volume 89.5 fL (80.0-100.0); Mean Platelet Volume 9.3 fL (7.0-11.0); Mono # (Auto) 0.5 th/mm3 (0.0-0.9); Mono % (Auto) 11.5 % (0.0-8.0); Neut # (Auto) 2.1 th/mm3 (1.8-7.7); Neut % (Auto) 45.3 % (16.0-70.0); Platelet Count 261 th/mm3 (150-450); Red Blood Count 3.79 mil/mm3 (4.50-5.90); Red Cell Distribution Width 14.4 % (11.6-17.2); White Blood Count 4.6 th/mm3 (4.0-11.0)
[2017-08-21 10:21] LABS: Anion Gap 9 meq/L (5-15); Blood Urea Nitrogen 12 mg/dL (7-18); Calcium 9.3 mg/dL (8.5-10.1); Carbon Dioxide 27.5 meq/L (21.0-32.0); Chloride 102 meq/L (98-107); Glomerular Filtration Rate Greater Than 89 mL/min (>89); Glucose,Random 72 mg/dL (74-106); Potassium 3.8 meq/L (3.5-5.1); Sodium 138 meq/L (136-145)
--- NOTE | 2017-08-21 11:28 | MB ---
cc: Jacek Castro MD DATE: 08/21/2017 REQUESTING PHYSICIAN: Dr. Manuela De La Vega. REASON: Diskitis. HISTORY OF PRESENT ILLNESS: This is a 32-year-old white male who presented to the emergency department yesterday evening after he was Charlton Acted by police. The patient has a history of IV drug abuse. He was recently hospitalized at [facility] in [facility] after he was found to have "cyst on the lumbar spine". He was treated with intravenous Ancef and was supposed to be treated for 6 weeks. He left the hospital against medical advice and came to the [facility]. The patient was having pain in his back for about a month prior to admission to [facility]. He does not recall the details of the hospitalization at [facility] as far as the cultures are concerned, but he seems to think that they were treating him for a Staph bacteria. He did not have any procedure on the spine for the cyst. The patient last used IV Dilaudid on the night before he presented to the emergency department. He denies nausea, vomiting, fever, chills, shortness of breath, dysuria. His primary complaint currently is pain in the back. MRI was performed and the lumbar spine shows a posterior epidural abscess at L2-L3 level with extension in the posterior epidural space and posterior paraspinous soft tissues. There was also mild disk protrusion at the left lateral recess and left neural foraminal region causing narrowing of the left neural foramina at the L4-L5 level. The patient's white blood cell count is normal. He is afebrile. He did have a temperature of 100.3 degrees yesterday evening. Blood cultures are pending. PAST SURGICAL HISTORY: Appendectomy 13 years ago. PAST MEDICAL HISTORY: IV drug abuse. ALLERGIES: PIPERACILLIN/TAZOBACTAM. MEDICATIONS: 1. Vancomycin. 2. Ceftriaxone. 3. Toradol. 4. Dulcolax. SOCIAL HISTORY: The patient smokes about half a half pack of cigarettes a day. Denies alcohol use. Positive IV drug use in the form of Dilaudid. Drug user for the past 5 years. The patient previously lived in [facility], but states that he is going to be residing in [facility] for the next couple of months. FAMILY HISTORY: Noncontributory. REVIEW OF SYSTEMS: All systems reviewed and negative except for pain in the back. PHYSICAL EXAMINATION: GENERAL: He is a well-developed male who is in no acute distress. He is awake and alert and oriented. VITAL SIGNS: Temperature 97.9, BP 110/60, respirations 16, heart rate 72. HEENT: Head is atraumatic. Extraocular movements grossly intact. Pupils reactive to light. No icterus. No conjunctival erythema. Oropharynx: Moist mucosa without lesions. NECK: Supple without adenopathy. LUNGS: Clear breath sounds. HEART: Regular S1, S2. No murmurs, rubs or gallops. ABDOMEN: Bowel sounds present. Soft, nontender. No palpable mass. RECTAL: Not performed. EXTREMITIES: No clubbing, cyanosis or edema. Well-developed musculature. SKIN: No diffuse rash. NEUROLOGIC: No gross focal finding. PSYCHIATRIC: The patient is calm and cooperative. Appropriate affect. ASSESSMENT: 1. Epidural abscess of the lumbar spine. 2. Diskitis of the lumbar spine. 3. IV drug abuse. The patient previously started on antibiotics for an infection which presumably was recovered from the blood and was receiving Ancef presumably for Staphylococcus aureus. He reports to me that an echocardiogram was performed and it was negative at [facility] prior to his signing out AMA. RECOMMENDATIONS: 1. Hold vancomycin. 2. Continue ceftriaxone. 3. Await culture from the procedure that is planned today. The procedure anticipated is aspiration of the epidural fluid for culture. PLAN: Aspiration of the epidural fluid. After the culture is performed, the vancomycin can be resumed and the blood culture and fluid culture can be monitored to determine antibiotic choice for continued treatment. The patient will require long-term antibiotic treatment for up to 8 weeks for the diskitis. Alternative is 6 weeks of IV and then p.o. after that. Thank you for this consultation. The patient's progress will be monitored and further recommendations will be made upon followup if necessary. MD SUKUMAR Hernadez/MARGO , 10:52 AM , 11:26 AM LUCINDA
[2017-08-21] MEDS ORDERED: Lidocaine PF 1% Inj 5 ML Syringe INFILTRATN ONE (12:00)
[2017-08-21] MEDS ORDERED: Neostigmine Inj 5 MG/5 ML Syringe IV.PUSH ONE (12:00)
[2017-08-21] MEDS ORDERED: Glycopyrrolate Inj 1 MG/5 ML Syringe IV.PUSH ONE (12:00)
--- NOTE | 2017-08-21 13:26 | P.CONPSY ---
Provisional Diagnosis Admission Date: August 20, 2017 21:10 Baldwin I.: Substance-induced mood disorder, heroine use disorder Baldwin II.: Deferred Baldwin III.: Hepatitis C, IV drug user, lumbar abscess History of Present Illness Service: Medicine Primary Care Provider: No Primary Care Physician Chief Complaint: Charlton act/low back pain History of Present Illness: The patient is a 32-year-old man, domiciled in [place] with his girlfriend, unemployed, with no previous psychiatric history, no previous suicide attempts, no prepsychotic hospitalizations, heroine use disorder, IV drug user, medical history of hepatitis C, who presents to the emergency department under Charlton act. According to the patient, his girlfriend called to have him Charlton acted after they had been up for a significant amount of time doing drugs. The patient tested positive for opiates and methamphetamine. He complained of lower back pain and was found to have a posterior epidural abscess at the L2-L3 level. Per patient report, he was previously treated for bacteremia and a epidural "cyst" in [place] at [facility]. He reports a 10 day total hospitalization with vancomycin 6 days which was then switched to Ancef. He reports his most recent blood cultures were negative. He left AGAINST MEDICAL ADVICE. The patient denies any recent fevers or chills. Endorses low back pain. Denies any chest pain or shortness of breath. No abdominal pain. No nausea/vomiting/diarrhea. No new splinter hemorrhages or lesion. Consulted to psychiatry to address Charlton act. On my psychiatric evaluation today the patient presents calm, cooperative and pleasant. Patient reports he is much better now, even though he does have some back pain. The patient reports that he is in a good mood, he says that he feels in peace, he wants to continue medical treatment and get better. He says that he is considering to engaging in either methadone or Suboxone treatment for heroin use. At this moment the patient denies withdrawal symptoms, but he knows that he might got some withdrawal symptoms later. He denies suicidal and homicidal ideation, he denies and auditory hallucinations. He is oriented 3, without no attention deficit, no filtration of consciousness, no aggressive behavior, no agitation, no paranoia, no loosening of associations, no davin present. He reports daily use of 3-4 packs of heroine, denies the use of cocaine, marijuana , alcohol and other drugs. Review of Systems Constitutional: Denies anorexia, Denies body ache(s), Denies chills, Denies daytime sleepiness, Denies excessive sweating, Denies fatigue, Denies fever(s), Denies headache(s), Denies increased appetite, Denies lack of energy, Denies malaise, Denies night sweats, Denies weakness, Denies weight gain, Denies weight loss, Denies other Eyes: Denies blind spots, Denies blurry vision, Denies bulging eyes, Denies change in vision, Denies double vision, Denies discharge, Denies dry eyes, Denies floaters, Denies irritation, Denies itchy eyes, Denies loss of vision, Denies pain, Denies requires corrective lenses, Denies sensitivity to light, Denies other Cardiovascular: Denies chest pain, Denies chest pain at rest, Denies chest pain with activity, Denies excessive sweating, Denies fainting, Denies fast heart rate, Denies foot swelling, Denies generalized swelling, Denies irregular heart rhythm, Denies leg pain with activity, Denies leg sores, Denies leg swelling, Denies lightheadedness, Denies radiating jaw, neck or arm pain, Denies rapid, pounding, or irregular heartbeat, Denies shortness of breath, Denies shortness of breath with activity, Denies shortness of breath when lying down, Denies shortness of breath causing sudden awakening, Denies slow heart rate, Denies other Respiratory: Denies change in phlegm color, Denies chest congestion, Denies cough, Denies coughing up blood, Denies excessive phlegm production, Denies pain on inspiration, Denies pain with cough, Denies shortness of breath, Denies shortness of breath with activity, Denies snoring, Denies stridor, Denies wheezing, Denies other Gastrointestinal: Denies abdominal pain, Denies belching, Denies black, tarry stools, Denies bloating, Denies bright, red blood in stools, Denies change in bowel habits, Denies constant urge to pass stool, Denies change in stools, Denies coffee ground vomit, Denies constipation, Denies cramping, Denies difficulty swallowing, Denies excessive passing of gas, Denies feeling full early, Denies heartburn, Denies incontinent of stools, Denies loose stools, Denies nausea, Denies pain with swallowing, Denies vomiting, Denies vomiting blood, Denies other Musculoskeletal: Reports back pain Neurologic: Denies abnormal hearing, Denies abnormal movements, Denies abnormal speech, Denies abnormal walking, Denies behavioral changes, Denies burning sensations, Denies confusion, Denies dizziness, Denies fainting, Denies frequent falls, Denies headache(s), Denies lack of coordination, Denies localized weakness, Denies loss of vision, Denies memory loss, Denies numbness, Denies other visual disturbances, Denies radiating pain, Denies restless legs, Denies convulsions, Denies seizure-like activity, Denies sensory deficit, Denies tingling, Denies tingling/numbness/burning sensations, Denies tremor(s), Denies unsteadiness, Denies weakness, Denies other Psychiatric: Denies abnormal sleep pattern, Denies anxiety, Denies behavioral changes, Denies change in appetite, Denies change in sex drive, Denies confusion , Denies depression, Denies difficulty concentrating, Denies hearing things others do not hear, Denies hopelessness, Denies irritability, Denies lack of enjoyment, Denies memory loss, Denies mood swings, Denies panic attacks, Denies paranoia, Denies seeing things others do not see, Denies sensing things others do not sense, Denies tactile hallucinations, Denies thoughts of hurting/killing others, Denies thoughts of hurting/killing yourself, Denies other PMFSH - History History Provided By: Patient - Medical History Medical History: Medical History (Last Reviewed 08/21/17 @ 10:44 by Jacek Castro MD) IV drug abuse - Surgical History Surgical History: Surgical History (Last Updated 08/20/17 @ 22:30 by Manuela De La Vega MD) History of appendectomy - Family History Family History: Family History (Last Updated 08/20/17 @ 22:30 by Manuela De La Vega MD) Other Diabetes - Tobacco History Second Hand Smoke Exposure: No Tobacco Use In Past 30 Days: Yes Smoking Status: Heavy tobacco smoker Tobacco Type: Cigarettes - Alcohol History How Often Do You Have a Drink Containing Alcohol: Monthly or less - Substance Use History Substance History: Active Abuse - Substance Use Type Benzodiazepines Status: Active Route Used: By Mouth Reason for Use: Sleep Amphetamines Status: Active Route Used: By Mouth Reason for Use: Stay Awake Opiates Route Used: Intravenously Comment: pain relief - Travel History Recent Travel in the [place] Within the Last 8 Weeks: No Recent Travel Out of the Country Within the Last 8 Weeks: No - Immunization History Tetanus Immunization: <5 Years Medications and Allergies Active Medications: Active Medications Acetaminophen (Tylenol) 650 mg PO Q4H PRN PRN Reason: Temp > 100.4 Al Hydroxide/Mg Hydroxide (Milk Of Magnesia Liq) 30 ml PO Q12H PRN PRN Reason: Mild Constipation Bisacodyl (Dulcolax Supp) 10 mg RECTAL DAILY PRN PRN Reason: SEVERE CONSITIPATION Sodium Chloride (Ns Inj) 1,000 mls @ 100 mls/hr IV.CONT .Q10H [facility] Last Infusion: 08/21/17 11:12 Dose: Infused Pharmacy Profile Note (Vancomycin Consult Pharmacy) 0 mls @ 0 mls/hr OTHER UNSCH [facility] Vancomycin HCl 1,500 mg/ (Sodium Chloride) 515 mls @ 257.5 mls/hr IV.SIG Q12H [facility] Ketorolac Tromethamine (Toradol Inj) 30 mg IV.PUSH Q6H PRN PRN Reason: pain 6-10 Stop: 08/25/17 22:20 Last Admin: 08/21/17 12:16 Dose: 30 mg Lactulose (Lactulose Liq) 30 ml PO DAILY PRN PRN Reason: SEVERE CONSITIPATION Miscellaneous Information ([facility] Ordered Lab Info) 0 each OTHER ONCE ONE Stop: 08/22/17 19:46 Ondansetron HCl (Zofran Inj) 4 mg IV.PUSH Q6H PRN PRN Reason: NAUSEA OR VOMITING Senna/Docusate Sodium (Winter-Colace) 1 tab PO BID [facility] Last Admin: 08/21/17 09:24 Dose: Not Given Sennosides (Senokot) 17.2 mg PO Q12H PRN PRN Reason: Moderate Constipation Temazepam (Restoril) 15 mg PO HS PRN PRN Reason: INSOMNIA Last Admin: 08/21/17 01:04 Dose: 15 mg Allergies Allergy/AdvReac Type Severity Reaction Status Date / Time piperacillin [From Zosyn] Allergy unknown Verified 08/20/17 14:58 tazobactam [From Zosyn] Allergy unknown Verified 08/20/17 14:58 Home Medications Medication Instructions Recorded Confirmed Type No Known Home Medications 08/20/17 08/20/17 History Exam Vital signs: Vital Signs 08/20/17 14:44 08/20/17 16:29 08/20/17 18:37 Temperature 100.3 F H Pulse Rate 124 H 87 89 Respiratory Rate 16 17 17 Blood Pressure 123/89 113/63 Pulse Oximetry 96 100 100 08/20/17 19:20 08/21/17 00:06 08/21/17 00:58 Temperature 98.2 F Pulse Rate 86 72 80 Respiratory Rate 12 18 18 Blood Pressure 131/80 115/72 114/78 Pulse Oximetry 96 95 97 08/21/17 04:00 08/21/17 07:21 08/21/17 12:00 Temperature 97.5 F L 97.9 F 98.4 F Pulse Rate 61 72 87 Respiratory Rate 17 12 16 Blood Pressure 112/79 110/60 118/75 Pulse Oximetry 99 99 98 Intake & Output 08/20/17 08/21/17 08/21/17 18:59 06:59 18:59 Intake Total 2770 / 2770 1720 / 1720 Output Total 600 / 600 Balance 2770 / 2770 1120 / 1120 Weight 90 kg Intake: IV 2770 / 2770 1000 / 1000 NS Inj 1,000 ML @ 100 mls/hr IV 1000 / 1000 .CONT .Q10H [facility] Rx#:[id number] NS Inj 700 ML @ Wide Open IV. 1700 / 1700 SIG .Q0M [facility] Rx#:[id number] Vancomycin Inj 1,000 MG In NS 250 / 250 Inj 250 ML @ 250 mls/hr IV.SIG ONCE ONE Rx#:[id number] Vancomycin Inj 2,000 MG In NS 520 / 520 Inj 500 ML @ 250 mls/hr IV.SIG DAILY@0300 [facility] Rx#:[id number] Rocephin Inj 2,000 MG In NS Inj 100 / 100 100 ML @ 200 mls/hr IV.SIG Q12H [facility] Rx#:[id number] Flagyl 500 MG Inj 100 ML @ 100 100 / 100 mls/hr IV.SIG ONCE ONE Rx#: [id number] Oral 720 / 720 Output: Urine 600 / 600 Other: Date of Last Bowel Movement 08/20/17 08/21/17 Narrative: No withdrawal symptoms at the moment, no EPS, no psychomotor retardation or agitation Mental Status Examination Appearance: Appropriate Consciousness: Alert Orientation: x4 Motor Activity: Normal gait Speech: Unremarkable Language: Adequate Fund of Knowledge: Adequate Attention and Concentration: Adequate Memory: Unremarkable Mood: Appropriate Affect: Appropriate Thought Process & Associations: Intact Thought Content: Appropriate Hallucination Type: None Delusion Type: None Suicidal Ideation: No Suicidal Plan: No Suicidal Intention: No Homicidal Ideation: No Homicidal Plan: No Homicidal Intention: No Insight: Adequate Judgment: Adequate Assessment and Plan - Assessment (1) Heroin use disorder, mild, abuse Code(s): F11.10 - Opioid abuse, uncomplicated Status: Acute (2) Heroin use disorder, severe Code(s): F11.20 - Opioid dependence, uncomplicated Status: Acute - Plan Plan: Estimated LOS: [] days The patient denies symptomatology of depression, anxiety, davin and psychosis. He denies suicidal and homicidal ideation, he denies visual and auditory hallucinations. He is logical, coherent and relevant. He does not have any previous psychiatric history other than heroine use disorder. Patient with a potential of presenting severe opiate withdrawal. Can use clonidine 0.2 mg every 8 hours as needed autonomic instability, Benadryl 50 mg every 8 hours for anxiety, ibuprofen 600 mg every 8 hours as needed pain, Zofran and Imodium for GI symptoms. No admission indicated. Brief supportive psychotherapy provided. Charlton act will be lifted. Justification for Continued Inpatient Stay: No admission indicated
[2017-08-21] MEDS ORDERED: Metoprolol Tartrate 25 MG Tablet PO SCH (15:00)
[2017-08-21] MEDS ORDERED: Sodium Chlor 0.9% Inj 500 ML IV.SIG SCH (15:00)
[2017-08-21] MEDS ORDERED: Chlorhexidine Gluconate 2% 1 Pack (2 Cloths) TOPICAL SCH (15:00)
--- NOTE | 2017-08-21 15:20 | ECHRPT ---
Indication: CONCLUSIONS The left ventricular systolic function is normal with an estimated ejection fraction in the range of 60-65%. Normal left ventricular size. Wall thickness is normal. No regional wall motion abnormalities are present. Trace mitral valve regurgitation. Trivial pulmonary valve regurgitation. BP: / HR: Rhythm: Sinus MEASUREMENTS (Male / Female) Normal Values Technical Quality:Good 2D ECHO LV Diastolic Diameter PLAX 5.0 cm 4.2 - 5.9 / 3.9 - 5.3 cm LV Systolic Diameter PLAX 3.5 cm IVS Diastolic Thickness 0.8 cm 0.6 - 1.0 / 0.6 - 0.9 cm LVPW Diastolic Thickness 0.8 cm 0.6 - 1.0 / 0.6 - 0.9 cm LV Relative Wall Thickness 0.3 LVOT Diameter 2.1 cm LA Systolic Diameter LX 3.3 cm 3.0 - 4.0 / 2.7 - 3.8 cm LV Ejection Fraction MOD 4C 66.5 % LV Ejection Fraction 4C AL 67.1 % M-MODE Aortic Root Diameter MM 2.2 cm LA Systolic Diameter MM 3.5 cm LA Ao Ratio MM 1.6 AV Cusp Separation MM 2.3 cm DOPPLER AV Peak Velocity 155.0 cm/s AV Peak Gradient 9.6 mmHg LVOT Peak Velocity 114.0 cm/s LVOT Peak Gradient 5.2 mmHg AV Area Cont Eq pk 2.5 cm MV Area PHT 3.6 cm Mitral E Point Velocity 102.0 cm/s Mitral A Point Velocity 54.8 cm/s Mitral E to A Ratio 1.9 LV E' Lateral Velocity 12.3 cm/s Mitral E to LV E' Lateral Ratio 8.3 LV E' Septal Velocity 12.0 cm/s Mitral E to LV E' Septal Ratio 8.5 PV Peak Velocity 106.0 cm/s PV Peak Gradient 4.5 mmHg FINDINGS LEFT VENTRICLE The left ventricular systolic function is normal with an estimated ejection fraction in the range of 60-65%. Normal left ventricular size. Wall thickness is normal. No regional wall motion abnormalities are present. RIGHT VENTRICLE Normal right ventricular size and systolic function. LEFT ATRIUM The left atrial size is normal. RIGHT ATRIUM The right atrial size is normal. ATRIAL SEPTUM Normal atrial septal thickness without atrial level shunting by limited color doppler interrogation. AORTA The aortic root and proximal ascending aorta are normal in size on limited imaging. MITRAL VALVE Structurally normal mitral valve. Trace mitral valve regurgitation. AORTIC VALVE Trileaflet aortic valve. No aortic valve stenosis or regurgitation. TRICUSPID VALVE Structurally normal tricuspid valve. No tricuspid valve stenosis or regurgitation. PULMONARY VALVE Trivial pulmonary valve regurgitation. VESSELS The inferior vena cava is normal in size. PERICARDIUM No pericardial effusion. Dakota Crooks MD (Electronically Signed) Final Date:21 August 2017 15:20
[2017-08-21] MEDS ORDERED: Bupivacaine/Epinephrine 0.5% Inj 50 ML Vial ONE (17:57)
[2017-08-21] MEDS ORDERED: Gelatin Size 100 Topical Foam ONE (17:58)
[2017-08-21] MEDS ORDERED: Thrombin Topical Soln 5,000 UNIT Vial TOPICAL ONE (17:58)
[2017-08-21] MEDS ORDERED: ceFAZolin 2 GM Premix Inj 2 GM/50 ML PIGGYBACK IV.SIG ONE (17:58)
--- NOTE | 2017-08-21 18:16 | P.CONNS ---
History of Present Illness Service: neurosurgery Consult date: 08/21/17 Requesting Physician: Eren Worthy Reason for Consult: epidural abscess Primary Care Provider: No Primary Care Physician Chief Complaint: Charlton act/low back pain History of Present Illness: This is a 32-year-old male with history of IV drug abuse presents to the emergency department under Charlton act. According to the patient, his girlfriend called to have him Zoltan acted after they had been up for a significant amount of time doing drugs. The patient tested positive for opiates and methamphetamine. He complained of lower back pain and was found to have a posterior epidural abscess at the L2-L3 level. Per patient report, he was previously treated for bacteremia and a epidural "cyst" in [facility]. He reports a 10 day total hospitalization with vancomycin 6 days which was then switched to Ancef. He reports his most recent blood cultures were negative. He left AGAINST MEDICAL ADVICE. The patient denies any recent fevers or chills. Endorses low back pain. Denies any chest pain or shortness of breath. No abdominal pain. No nausea/vomiting/diarrhea. MRI lumbar spine showed a very large epidural abscess with compression of the cauda equine. Neurosurgical consultyation was requested Gen.: No acute distress Head: Normocephalic. Atraumatic. EENT: Pupils equal round and reactive to light. Nose without drainage. Airway intact. Throat without injection. Cardiovascular: Regular rate and rhythm. No murmurs, rubs or gallops. Respiratory: Lungs clear to auscultation bilaterally. No wheezes or rhonchi. Abdomen: Soft, nontender, nondistended. No peritoneal signs. Musculoskeletal: No gross deformities. No edema. Skin: No obvious rashes or erythema. No Janeway lesions or splinter hemorrhages. Neuro: Sensory and motor grossly intact. Cranial nerves II through XII grossly intact. Psych: Appropriate mood and affect Results - Labs CBC & Chem 7: 08/20/17 14:46 08/20/17 14:46 Labs: Laboratory Results - last 24 hr 08/20/17 08/20/17 08/20/17 14:46 14:46 14:46 WBC 11.3 H RBC 3.95 L Hgb 11.7 L Hct 34.5 L MCV 87.4 MCH 29.5 MCHC 33.8 RDW 14.2 Plt Count 357 MPV 9.1 Neut % (Auto) 66.0 Lymph % (Auto) 20.4 Oliver % (Auto) 8.9 H Eos % (Auto) 2.0 Baso % (Auto) 2.7 H Neut # (Auto) 7.5 Lymph # (Auto) 2.3 Oliver # (Auto) 1.0 H Eos # (Auto) 0.2 Baso # (Auto) 0.3 H WBC Differential . Differential Comment Auto diff final Sodium 133 L Potassium 4.2 Chloride 94 L Carbon Dioxide 29.3 Anion Gap 10 BUN 16 Creatinine 1.10 Estimated GFR 79 L Random Glucose 101 Lactic Acid Calcium 9.2 Total Bilirubin 0.5 AST 84 H ALT 137 H Alkaline Phosphatase 129 H Total Creatine Kinase CK-MB (CK-2) CK-MB (CK-2) % Total Protein 8.9 H Albumin 4.0 TSH 0.743 Urine Color Urine Clarity Urine pH Ur Specific [place] Urine Protein Urine Glucose (UA) Urine Ketones Urine Occult Blood Urine Nitrate Urine Bilirubin Urine Urobilinogen Ur Leukocyte Esterase Urine RBC Urine WBC Urine Mucus Micro UA Comment Salicylates 1.8 L Urine Opiates Screen Acetaminophen Less than 2.0 L Ur Barbiturates Screen Ur Amphetamines Screen U Benzodiazepines Scrn Urine Cocaine Screen U Cannabinoids Screen Serum Alcohol 3 08/20/17 08/20/17 08/20/17 14:46 16:10 16:30 WBC RBC Hgb Hct MCV MCH MCHC RDW Plt Count MPV Neut % (Auto) Lymph % (Auto) Oliver % (Auto) Eos % (Auto) Baso % (Auto) Neut # (Auto) Lymph # (Auto) Oliver # (Auto) Eos # (Auto) Baso # (Auto) WBC Differential Differential Comment Sodium Potassium Chloride Carbon Dioxide Anion Gap BUN Creatinine Estimated GFR Random Glucose Lactic Acid 0.6 Calcium Total Bilirubin AST ALT Alkaline Phosphatase Total Creatine Kinase 515 H CK-MB (CK-2) 1.9 CK-MB (CK-2) % 0.4 Total Protein Albumin TSH Urine Color Urine Clarity Urine pH Ur Specific [place] Urine Protein Urine Glucose (UA) Urine Ketones Urine Occult Blood Urine Nitrate Urine Bilirubin Urine Urobilinogen Ur Leukocyte Esterase Urine RBC Urine WBC Urine Mucus Micro UA Comment Salicylates Urine Opiates Screen Pos H Acetaminophen Ur Barbiturates Screen Neg Ur Amphetamines Screen Pos H U Benzodiazepines Scrn Neg Urine Cocaine Screen Pos U Cannabinoids Screen Neg Serum Alcohol 08/20/17 16:30 WBC RBC Hgb Hct MCV MCH MCHC RDW Plt Count MPV Neut % (Auto) Lymph % (Auto) Oliver % (Auto) Eos % (Auto) Baso % (Auto) Neut # (Auto) Lymph # (Auto) Oliver # (Auto) Eos # (Auto) Baso # (Auto) WBC Differential Differential Comment Sodium Potassium Chloride Carbon Dioxide Anion Gap BUN Creatinine Estimated GFR Random Glucose Lactic Acid Calcium Total Bilirubin AST ALT Alkaline Phosphatase Total Creatine Kinase CK-MB (CK-2) CK-MB (CK-2) % Total Protein Albumin TSH Urine Color Yellow Urine Clarity Clear Urine pH 5.0 Ur Specific [place] 1.020 Urine Protein Negative Urine Glucose (UA) Negative Urine Ketones Negative Urine Occult Blood Negative Urine Nitrate Negative Urine Bilirubin Negative Urine Urobilinogen 2.0 H Ur Leukocyte Esterase Negative Urine RBC Less than 1 Urine WBC 2 Urine Mucus Few H Micro UA Comment Culture not ind Salicylates Urine Opiates Screen Acetaminophen Ur Barbiturates Screen Ur Amphetamines Screen U Benzodiazepines Scrn Urine Cocaine Screen U Cannabinoids Screen Serum Alcohol - Imaging Impressions Lumbar Spine MRI 08/20/17 14:58 CONCLUSION: 1. Posterior epidural abscess. This is at the L2-L3 level. This left the inflammatory change appears to be centered around the left L2-3 facet joint with extension in the posterior epidural space and the posterior paraspinous soft tissues. The abscess in the posterior epidural space measures approximately 1.6 cm in diameter. There is a 1.2 x 0.8 x 0.6 cm small abscess in the posterior left paraspinous soft tissues. 2. Mild disc protrusion at the left lateral recess and left neural foraminal region causing narrowing of the left neural foramina at the L4-L5 level. Thoracic Spine MRI 08/20/17 14:58 CONCLUSION: 1. No areas of discitis or osteomyelitis are seen. 2. Mild disc changes at the mid thoracic spine as described above. Caprini VTE Risk Assessment Caprini VTE Risk Assessment: No/Low Risk (score <= 1) Caprini Risk Assessment Model: Point Value = 1 Point Value = 2 Point Value = 3 Point Value = 5 Age 41-60 Minor surgery BMI > 25 kg/m2 Swollen legs Varicose veins or History of unexplained or recurrent spontaneous Oral contraceptives or hormone replacement Sepsis (< 1 month) Serious lung disease, including pneumonia (< 1 month) Abnormal pulmonary function Acute myocardial infarction Congestive heart failure (< 1 month) History of inflammatory bowel disease Medical patient at bed rest Age 61-74 Arthroscopic surgery Major open surgery (> 45 min) Laparoscopic surgery (> 45 min) Malignancy Confined to bed (> 72 hours) Immobilizing plaster cast Central venous access Age >= 75 History of VTE Family history of VTE Factor V Leiden Prothrombin [id number] Lupus anticoagulant Anticardiolipin antibodies Elevated serum homocysteine Heparin-induced thrombocytopenia Other congenital or acquired thrombophilia Stroke (< 1 month) Elective arthroplasty Hip, pelvis, or leg fracture Acute spinal cord injury (< 1 month) Prophylaxis Regimen: Total Risk Factor Score Risk Level Prophylaxis Regimen 0-1 Low Early ambulation 2 Moderate Order ONE of the following: *Sequential Compression Device (SCD) *Heparin 5000 units SQ BID 3-4 Higher Order ONE of the following medications: *Heparin 5000 units SQ TID *Enoxaparin/Lovenox 40 mg SQ daily (WT < 150 kg, CrCl > 30 mL/min) *Enoxaparin/Lovenox 30 mg SQ daily (WT < 150 kg, CrCl > 10-29 mL/min) *Enoxaparin/Lovenox 30 mg SQ BID (WT < 150 kg, CrCl > 30 mL/min) AND/OR *Sequential Compression Device (SCD) 5 or more Highest Order ONE of the following medications: *Heparin 5000 units SQ TID (Preferred with Epidurals) *Enoxaparin/Lovenox 40 mg SQ daily (WT < 150 kg, CrCl > 30 mL/min) *Enoxaparin/Lovenox 30 mg SQ daily (WT < 150 kg, CrCl > 10-29 mL/min) *Enoxaparin/Lovenox 30 mg SQ BID (WT < 150 kg, CrCl > 30 mL/min) AND *Sequential Compression Device (SCD) Assessment and Plan - Plan Assessment/plan: 1. Discitis MRI of the lumbar spine revealed epidural abscess at the level of L2-L3 Neurosurgery consulted, appreciate recommendations Vancomycin and Rocephin per neurosurgery recommendations Infectious disease consulted, appreciate recommendations Blood cultures pending Echo pending to rule out endocarditis Patient recently treated for bacteremia and discitis -records requested from previous hospital 2. IV drug abuse Cessation counseling provided Toradol for pain Review of Systems Constitutional: Denies anorexia, Denies body ache(s), Denies chills, Denies daytime sleepiness, Denies excessive sweating, Denies fatigue, Denies fever(s), Denies headache(s), Denies increased appetite, Denies lack of energy, Denies malaise, Denies night sweats, Denies weakness, Denies weight gain, Denies weight loss, Denies other Eyes: Denies blind spots, Denies blurry vision, Denies bulging eyes, Denies change in vision, Denies double vision, Denies discharge, Denies dry eyes, Denies floaters, Denies irritation, Denies itchy eyes, Denies loss of vision, Denies pain, Denies requires corrective lenses, Denies sensitivity to light, Denies other Ears, Nose, Mouth, and Throat: Denies abnormal hearing, Denies bleeding gums, Denies bad breath, Denies change in voice, Denies dental pain, Denies difficulty swallowing, Denies dizziness, Denies dry mouth, Denies ear discharge , Denies ear pain, Denies facial pain, Denies headache(s), Denies hearing loss, Denies hoarseness, Denies lip swelling, Denies nosebleed, Denies mouth lesions, Denies mouth pain, Denies nasal congestion, Denies nasal discharge, Denies nasal obstruction, Denies nasal trauma, Denies neck lump, Denies neck pain, Denies nose pain, Denies pain with swallowing, Denies poor balance, Denies post nasal drip, Denies ringing in the ears, Denies sinus pain, Denies sinus pressure , Denies sore throat, Denies throat swelling, Denies tongue swelling, Denies other Cardiovascular: Denies chest pain, Denies chest pain at rest, Denies chest pain with activity, Denies excessive sweating, Denies fainting, Denies fast heart rate, Denies foot swelling, Denies generalized swelling, Denies irregular heart rhythm, Denies leg pain with activity, Denies leg sores, Denies leg swelling, Denies lightheadedness, Denies radiating jaw, neck or arm pain, Denies rapid, pounding, or irregular heartbeat, Denies shortness of breath, Denies shortness of breath with activity, Denies shortness of breath when lying down, Denies shortness of breath causing sudden awakening, Denies slow heart rate, Denies other Respiratory: Denies change in phlegm color, Denies chest congestion, Denies cough, Denies coughing up blood, Denies excessive phlegm production, Denies pain on inspiration, Denies pain with cough, Denies shortness of breath, Denies shortness of breath with activity, Denies snoring, Denies stridor, Denies wheezing, Denies other Gastrointestinal: Denies abdominal pain, Denies belching, Denies black, tarry stools, Denies bloating, Denies bright, red blood in stools, Denies change in bowel habits, Denies constant urge to pass stool, Denies change in stools, Denies coffee ground vomit, Denies constipation, Denies cramping, Denies difficulty swallowing, Denies excessive passing of gas, Denies feeling full early, Denies heartburn, Denies incontinent of stools, Denies loose stools, Denies nausea, Denies pain with swallowing, Denies vomiting, Denies vomiting blood, Denies other Genitourinary: Denies blood in semen, Denies blood in urine, Denies decreased urination, Denies difficulty urinating, Denies difficulty with ejaculations, Denies erectile dysfunction, Denies genital lesions, Denies genital pain, Denies painful urination, Denies side pain, Denies frequent nighttime urination , Denies painful ejaculations, Denies penile discharge, Denies scrotal swelling , Denies testicle lump, Denies testicle pain, Denies urinary frequency, Denies urinary hesitancy, Denies urinary incontinence, Denies urinary urgency, Denies other Musculoskeletal: Denies abnormal walking, Denies back pain, Denies body aches, Denies decreased muscle mass, Denies deformity, Denies joint pain, Denies joint swelling, Denies limited joint movement, Denies loss of height, Denies muscle cramps, Denies muscle weakness, Denies neck pain, Denies numbness, Denies radiating pain into limb, Denies stiffness, Denies tingling, Denies other Skin/Breast: Denies acne, Denies bleeding lesions, Denies boil, Denies breast swelling, Denies breast skin changes, Denies breast pain, Denies breast lump, Denies change in breast shape, Denies change in hair, Denies change in skin color, Denies changing lesions, Denies dry skin, Denies excessive hair growth, Denies hair loss, Denies itching, Denies lesions, Denies nail changes, Denies new lesions, Denies nipple discharge, Denies non-healing lesions, Denies redness , Denies sensitivity to light, Denies rash, Denies skin pain, Denies skin ulcer , Denies sores, Denies stretch garcia, Denies unusual bruising, Denies wounds, Denies yellowing of the skin, Denies other Neurologic: Denies abnormal hearing, Denies abnormal movements, Denies abnormal speech, Denies abnormal walking, Denies behavioral changes, Denies burning sensations, Denies confusion, Denies dizziness, Denies fainting, Denies frequent falls, Denies headache(s), Denies lack of coordination, Denies localized weakness, Denies loss of vision, Denies memory loss, Denies numbness, Denies other visual disturbances, Denies radiating pain, Denies restless legs, Denies convulsions, Denies seizure-like activity, Denies sensory deficit, Denies tingling, Denies tingling/numbness/burning sensations, Denies tremor(s), Denies unsteadiness, Denies weakness, Denies other Psychiatric: Denies abnormal sleep pattern, Denies anxiety, Denies behavioral changes, Denies change in appetite, Denies change in sex drive, Denies confusion , Denies depression, Denies difficulty concentrating, Denies hearing things others do not hear, Denies hopelessness, Denies irritability, Denies lack of enjoyment, Denies memory loss, Denies mood swings, Denies panic attacks, Denies paranoia, Denies seeing things others do not see, Denies sensing things others do not sense, Denies tactile hallucinations, Denies thoughts of hurting/killing others, Denies thoughts of hurting/killing yourself, Denies other Endocrine: Denies cold intolerance, Denies excessive sweating, Denies flushing, Denies heat intolerance, Denies increased hunger, Denies increased thirst, Denies increased urination, Denies rapid, pounding, or irregular heartbeat, Denies other PMFSH - History History Provided By: Patient - Medical History Medical History: Medical History (Last Reviewed 08/21/17 @ 18:08 by Milton Christine MD) IV drug abuse - Surgical History Surgical History: Surgical History (Last Reviewed 08/21/17 @ 18:08 by Milton Christine MD) History of appendectomy - Family History Family History: Family History (Last Reviewed 08/21/17 @ 18:08 by Milton Christine MD) Other Diabetes - Tobacco History Second Hand Smoke Exposure: No Tobacco Use In Past 30 Days: Yes Smoking Status: Heavy tobacco smoker Tobacco Type: Cigarettes - Alcohol History How Often Do You Have a Drink Containing Alcohol: Monthly or less - Substance Use History Substance History: Active Abuse - Substance Use Type Benzodiazepines Status: Active Route Used: By Mouth Reason for Use: Sleep Amphetamines Status: Active Route Used: By Mouth Reason for Use: Stay Awake Opiates Route Used: Intravenously Comment: pain relief - Travel History Recent Travel in the [place] Within the Last 8 Weeks: No Recent Travel Out of the Country Within the Last 8 Weeks: No - Immunization History Tetanus Immunization: <5 Years Medications and Allergies Active Medications: Active Medications Acetaminophen (Tylenol) 650 mg PO Q4H PRN PRN Reason: Temp > 100.4 Al Hydroxide/Mg Hydroxide (Milk Of Magntita Liq) 30 ml PO Q12H PRN PRN Reason: Mild Constipation Bisacodyl (Dulcolax Supp) 10 mg RECTAL DAILY PRN PRN Reason: SEVERE CONSITIPATION Chlorhexidine Gluconate (Chlorhexidine 2% Cloth) 3 pack [employer]ICAL [employer] SALES REPRESENTATIVE [facility] Stop: 08/24/17 14:46 Sodium Chloride (Ns Inj) 1,000 mls @ 100 mls/hr IV.CONT .Q10H [facility] Last Infusion: 08/21/17 11:12 Dose: Infused Pharmacy Profile Note (Vancomycin Consult Pharmacy) 0 mls @ 0 mls/hr OTHER UNSCH [facility] Vancomycin HCl 1,500 mg/ (Sodium Chloride) 515 mls @ 257.5 mls/hr IV.SIG Q12H [facility] Lactated Ringer's (Lr 1000 Ml Inj) 1,000 mls @ 30 mls/hr IV.SIG .Q24H [facility] Stop: 08/24/17 14:46 Last Admin: 08/21/17 17:39 Dose: 30 mls/hr Sodium Chloride (Ns Inj) 500 mls @ 30 mls/hr IV.SIG .Q10H [facility] Stop: 08/24/17 14:46 Ketorolac Tromethamine (Toradol Inj) 30 mg IV.PUSH Q6H PRN PRN Reason: pain 6-10 Stop: 08/25/17 22:20 Last Admin: 08/21/17 12:16 Dose: 30 mg Lactulose (Lactulose Liq) 30 ml PO DAILY PRN PRN Reason: SEVERE CONSITIPATION Metoprolol Tartrate (Lopressor) 25 mg PO [employer] SAL[employer] REPRESENT[employer]IVE [facility] Stop: 08/24/17 14:46 Ondansetron HCl (Zofran Inj) 4 mg IV.PUSH Q6H PRN PRN Reason: NAUSEA OR VOMITING Povidone Iodine (Betadine 5% Antisepsis Kit) 1 applicatio EACH NARE [employer] SAL[employer] REPRESENTATIVE [facility] Stop: 08/24/17 14:46 Senna/Docusate Sodium (Winter-Colace) 1 tab PO BID [facility] Last Admin: 08/21/17 09:24 Dose: Not Given Sennosides (Senokot) 17.2 mg PO Q12H PRN PRN Reason: Moderate Constipation Temazepam (Restoril) 15 mg PO HS PRN PRN Reason: INSOMNIA Last Admin: 08/21/17 01:04 Dose: 15 mg Allergies Allergy/AdvReac Type Severity Reaction Status Date / Time piperacillin [From Zosyn] Allergy unknown Verified 08/20/17 14:58 tazobactam [From Zosyn] Allergy unknown Verified 08/20/17 14:58 Home Medications Medication Instructions Recorded Confirmed Type No Known Home Medications 08/20/17 08/20/17 History Exam Vital signs: Vital Signs 08/20/17 18:37 08/20/17 19:20 08/21/17 00:06 Temperature Pulse Rate 89 86 72 Respiratory Rate 17 12 18 Blood Pressure 113/63 131/80 115/72 Pulse Oximetry 100 96 95 08/21/17 00:58 08/21/17 04:00 08/21/17 07:21 Temperature 98.2 F 97.5 F L 97.9 F Pulse Rate 80 61 72 Respiratory Rate 18 17 12 Blood Pressure 114/78 112/79 110/60 Pulse Oximetry 97 99 99 08/21/17 12:00 08/21/17 16:00 Temperature 98.4 F 98.3 F Pulse Rate 87 74 Respiratory Rate 16 12 Blood Pressure 118/75 129/82 Pulse Oximetry 98 100 Intake & Output 07/10/3008/21/17 08/21/17 18:59 06:59 18:59 Intake Total 2770 / 2770 1720 / 1720 Output Total 600 / 600 Balance 2770 / 2770 1120 / 1120 Weight 90 kg Intake: IV 2770 / 2770 1000 / 1000 NS Inj 1,000 ML @ 100 mls/hr IV 1000 / 1000 .CONT .Q10H [facility] Rx#:[id number] NS Inj 700 ML @ Wide Open IV. 1700 / 1700 SIG .Q0M [facility] Rx#:[id number] Vancomycin Inj 1,000 MG In NS 250 / 250 Inj 250 ML @ 250 mls/hr IV.SIG ONCE ONE Rx#:[id number] Vancomycin Inj 2,000 MG In NS 520 / 520 Inj 500 ML @ 250 mls/hr IV.SIG DAILY@0300 [facility] Rx#:[id number] Rocephin Inj 2,000 MG In NS Inj 100 / 100 100 ML @ 200 mls/hr IV.SIG Q12H [facility] Rx#:[id number] Flagyl 500 MG Inj 100 ML @ 100 100 / 100 mls/hr IV.SIG ONCE ONE Rx#: [id number] Oral 720 / 720 Output: Urine 600 / 600 Other: # Voids 5 Date of Last Bowel Movement 08/20/17 08/21/17 # Bowel Movements 1 Narrative: General: Mr. Gabriel is in no obvious distress during examination. Neuro: Awake, alert and oriented to person, place, and time. Speech is clear and fluent. Can follow single and multi-step commands without apraxia. Cranial nerve examination: pupils to be equal, round, and reactive to light. Extra- ocular movements are intact with normal convergence. Facial motor and sensory function are normal and symmetrical. Gross hearing is intact, bilaterally, to finger rub. The uvula is midline and elevates symmetrically with the soft palate. Sternocleidomastoid and deltoid muscles have normal and symmetrical strength. Other cranial nerves are intact. HEENT: Normocephalic, atraumatic. Gross hearing intact bilaterally. Nonicteric sclera. Neck: soft, supple, good range of motion in flexion, extension, lateral bending and rotation without pain Musculoskeletal: No peripheral edema. No obvious deformities to extremities. 5/ 5 deltoid, bilateral biceps, triceps and dump truck operator. In the lower extremities, strength is 4+/5 iliopsoas with giveaway due to hip pain, 5/5 right iliopsoas, bilateral quadriceps, hamstrings, tibialis anterior, gastrocnemius, and extensor hallucis longus. Sensory examination is intact light touch in both the upper and lower extremities Deep tendon reflexes are trace triceps, and brachioradialis, 1+ biceps bilaterally, in the upper extremities. In the lower extremities, the patellar are 1+ and Achilles are absent, bilaterally. There is a bilateral plantar flexion response. Hoffmanns sign is negative. There is no ankle clonus. Lumbar spine has decreased range of motion in anterior flexion, extension, lateral bending and rotation. No pain to palpation over the paraspinous muscles. Cerebellar: intact finger to nose bilaterally Gait: ambulates with left limp due to pain Lungs: clear, nonlabored breathing, no wheezing Heart: regular rate and rhythm Skin: warm and dry, no cyanosis. Results - Laboratory Findings CBC and BMP: 08/21/17 09:04 08/21/17 09:04 Abnormal lab findings: Abnormal Labs 08/20/17 08/20/17 08/20/17 14:46 14:46 14:46 WBC 11.3 H RBC 3.95 L Hgb 11.7 L Hct 34.5 L Oliver % (Auto) 8.9 H Baso % (Auto) 2.7 H Oliver # (Auto) 1.0 H Baso # (Auto) 0.3 H Sodium 133 L Chloride 94 L Estimated GFR 79 L Random Glucose AST 84 H ALT 137 H Alkaline Phosphatase 129 H Total Creatine Kinase Total Protein 8.9 H Urine Urobilinogen Urine Mucus Salicylates 1.8 L Urine Opiates Screen Acetaminophen Less than 2.0 L Ur Amphetamines Screen 08/20/17 08/20/17 08/20/17 14:46 16:30 16:30 WBC RBC Hgb Hct [place] % (Auto) Baso % (Auto) Oliver # (Auto) Baso # (Auto) Sodium Chloride Estimated GFR Random Glucose AST ALT Alkaline Phosphatase Total Creatine Kinase 515 H Total Protein Urine Urobilinogen 2.0 H Urine Mucus Few H Salicylates Urine Opiates Screen Pos H Acetaminophen Ur Amphetamines Screen Pos H 08/21/17 08/21/17 09:04 09:04 WBC RBC 3.79 L Hgb 11.3 L Hct 33.9 L Oliver % (Auto) 11.5 H Baso % (Auto) Oliver # (Auto) Baso # (Auto) Sodium Chloride Estimated GFR Random Glucose 72 L AST ALT Alkaline Phosphatase Total Creatine Kinase Total Protein Urine Urobilinogen Urine Mucus Salicylates Urine Opiates Screen Acetaminophen Ur Amphetamines Screen Assessment and Plan - Plan 32 year old with IVDA and very large lumbar epidural abscess, cauda equine compression I reviewed his MRI Lumbar Spine MRI 08/20/17 14:58 CONCLUSION: 1. Posterior epidural abscess. This is at the L2-L3 level. This left the inflammatory change appears to be centered around the left L2-3 facet joint with extension in the posterior epidural space and the posterior paraspinous soft tissues. The abscess in the posterior epidural space measures approximately 1.6 cm in diameter. There is a 1.2 x 0.8 x 0.6 cm small abscess in the posterior left paraspinous soft tissues. 2. Mild disc protrusion at the left lateral recess and left neural foraminal region causing narrowing of the left neural foramina at the L4-L5 level. Thoracic Spine MRI 08/20/17 14:58 CONCLUSION: 1. No areas of discitis or osteomyelitis are seen. 2. Mild disc changes at the mid thoracic spine as described above. Continue neuro checks. I recommend a surgical evacuation of the abscess with a L2-3 laminectomy and evacuation of abscess. I have discussed the details of the surgical decompression including the [id number] procedure, its indications , alternatives, risks, and potential complications. Risks and potential complications include, but are not limited to, infection, blood loss, CSF leak, partial or complete loss of sight in one or both eyes, paresis, paralysis, permanent pain, hoarseness or difficulty swallowing, loss of bowel or bladder function, complications from anesthesia, blood clot, stroke, myocardial infarction, or even . He understands. All his questions were answered. No guaranties were given. he voiced requesting the surgery and sign consents Pulmonary. aggressive pulmonary toilette, nasotracheal suction, and breathing treatments with nebulizers. Nutrition. NPO Renal. monitor closely urine output, BUN and creatinine Endocrine. Monitor serial Acu checks and SSI as needed in detail ID monitor for signs of infection Protonix for stress ulcer prophylaxis Celestine hose and SCD's for DVT prophylaxis.
[2017-08-21] MEDS ORDERED: Acetaminophen 325 MG Tablet PO PRN (18:48)
[2017-08-21] MEDS ORDERED: Morphine Sulfate Inj 2 MG/ML Vial IV.PUSH PRN (18:48)
[2017-08-21] MEDS ORDERED: Aluminum/Magnesium/Simethacone Susp 30 ML UDC PO PRN (18:48)
[2017-08-21] MEDS ORDERED: Bisacodyl 10 MG Supp RECTAL PRN (18:48)
--- NOTE | 2017-08-21 19:18 | P.OP ---
- Preoperative Diagnosis (1) Epidural abscess - Postoperative Diagnosis (1) Epidural abscess Date of procedure: 08/22/17 Procedure: L2-3 decompresive laminectomy, evacuation of epidural abscess Surgeon: Milton Christine MD Taxi Cab Driver: Edmund smart Pathology: other (aerobic, anaerobic, afb, fungus cultures) Operation and Findings: INDICATIONS FOR THE PROCEDURE The patient is a 32 year-old female with history of intravenous drug use who presented with intractable back pain and clinical evidence of lower extremity radiculopathy. MRI of the lumbar spine showed a significant epidural abscess with severe compression of the neural structures and cauda equine. He was getting septic. A surgical decompression was indicated. The [id number] details of the procedure, indications, alternatives, risks and potential complications were fully discussed with the patient. The patient fully understood. All her questions were answered. No guarantees were given. She voiced requesting the procedure and provided informed consents. The patient was offered the alternative of delaying the procedure and continuing with nonsurgical management. DETAILS OF THE PROCEDURE After the induction of general anesthesia, endotracheal intubation was performed. A Kapadia catheter, bilateral LILIANA hose and sequential compression devices were placed and kept throughout the procedure. The patient was positioned prone on a Yogesh table over a Valeriy frame. All pressure points were carefully padded with eggcrate mattress. The eyes were tapped shut after ointment was applied by the anesthesiologist to prevent corneal abrasion. A Manuel hugger was placed over the exposed lower body to maintain control of the core body temperature. The lower lumbar region was prepped and draped in the usual sterile fashion. A spinal needle was placed for localization and an x- ray performed with a C-arm. A skin incision was made in the midline over the spinous processes L2-L3 with a #10 blade. Small subcutaneous bleeders were controlled with a bipolar and the dissection was carried out through the lumbar fascia exposing the spinous processes. A subperiosteal dissection was performed with a Rogers elevator and a Bovie over the left L2-L3 spinous process lamina and facets. A microdiscectomy self-retaining retractor was placed on the incision and an x-ray was obtained with an instrument placed underneath the lamina of L2. There was cloudy fluid and a set of cultures were sent to the lab for aerobic and anaerobic gram stain and cultures. At this point in the procedure, the operating microscope was draped in the usual sterile fashion and brought to the field. The rest of the surgical procedure was performed using microdissection technique with the exception of the closure. Once the level was confirmed, a decompressive laminectomy was performed at L2- L3 using the TPS drill with a 4mm Bagley drill bit. A medial facetectomy was performed. There was extensive granulation tissue and an abscess collection. The superior free border of the ligamentum flavum was dissected with a ligament dissector and removed with a thin footplate 2 mm Kerrison. Upon elevation of the ligamentum Flavum, a purulent collection was with extensive granulation evacuated. Further cultures were sent to the lab for aerobic and anaerobic cultures, Gram staion AFB, and fungus cultures. The infection had eroded the dura and there were nerve roots visible. A medial facetectomy was done and the left L3 nerve root was identified and followed towards its exit in the foramen. Under the operative microscopic, the dural sac was carefully reconstructed using 6-0 Prolene. Additional set of tissue cultures were obtained, including abnormal granulation tissue sent for pathology. The abnormal granulation tissue was carefully dissected with microsurgical instruments and microsurgical dissection technique. The specimens were sent to the lab for tissue culture and histopathology. At this point, after all cultures were obtained. the patient received IV antibiotics and the incision was thoroughly and copiously irrigated with saline-diluted bethadine solution and basic ortho antibiotic solution. The dura was reconstructed with Duraseal. A Yogesh Núñez drain was left in the epidural space, tunneled and and externalized through a separate stab incision. The incision was then closed with layers. 0-Vicryl interrupted sutures were used to close the thoracolumbar fascia and superficial fascia. The subcutaneous tissue was approximated with 3-0 Vicryl sutures. The skin was closed with Ethilon in a running fashion. At the end of the procedure, the sponge, needle and instrument counts were all correct. The estimated blood loss was less than 100 cc. No intraoperative complications occurred. The patient received prophylactic antibiotics. The patient was then extubated and transferred to the recovery room in stable condition. ESTIMATED BLOOD LOSS: Less than 100 cc. No complications.
[2017-08-21] MEDS ORDERED: fentaNYL Citrate Inj 100 MCG/2 ML Ampul ONE ×2 (19:51→21:25)
[2017-08-21] MEDS ORDERED: Vancomycin Inj 1,500 MG in Sodium Chlor 0.9% Inj 500 ML IV.SIG SCH (20:00)
[2017-08-21] MEDS ORDERED: Morphine Inj 4 MG/ML Vial ONE (21:25)
[2017-08-21] MEDS ORDERED: *morphine SULFATE 10 MG/ML PERIprocedure ONLY ONE ×2 (21:36→21:43)
[2017-08-21] MEDS ORDERED: HYDROmorphone PF Inj 2 MG/ML Vial ONE (21:50)
--- NOTE | 2017-08-21 21:52 | XR ---
EXAM DATE: 08/21/2017 9:44 PM EDT AGE/SEX: 32 years / Male INDICATIONS: Level localization for a lumbar laminectomy, L3-4. CLINICAL DATA: This is the patient's initial encounter. Patient reports that signs and symptoms have been present for 1 day and indicates a pain score of Nonresponsive. MEDICAL/SURGICAL HISTORY: Non-responsive. Non-responsive. COMPARISON: No prior exams available for comparison. FINDINGS: Lateral views of the lower lumbar spine are obtained in the operating room. There is a metallic point er at the L4 level. CONCLUSION: Pointer is at L4. Electronically signed by: Joel Rubio MD 08/21/2017 9:50 PM EDT
[2017-08-22] MEDS: Ketorolac Inj 30 MG/ML (IVP) Vial IV.PUSH PRN ×2 (05:06→13:18)
[2017-08-22] MEDS: Senna/Docusate Sodium 8.6/50 MG Tablet PO SCH ×3 (09:00→20:47)
[2017-08-22 09:39] LABS: Baso % (Auto) 0.6 % (0.0-2.0); Eos % (Auto) 0.4 % (0.0-4.0); Hematocrit 30.3 % (39.0-51.0); Hemoglobin 10.3 gm/dL (13.0-17.0); Lymph # (Auto) 1.3 th/mm3 (1.0-4.8); Lymph % (Auto) 16.2 % (9.0-44.0); Mean Corpuscular HGB Conc 34.1 % (32.0-36.0); Mean Corpuscular Hemoglobin 30.4 pg (27.0-34.0); Mean Corpuscular Volume 89.2 fL (80.0-100.0); Mean Platelet Volume 9.4 fL (7.0-11.0); Mono # (Auto) 0.4 th/mm3 (0.0-0.9); Mono % (Auto) 5.7 % (0.0-8.0); Neut % (Auto) 77.1 % (16.0-70.0); Platelet Count 275 th/mm3 (150-450); Red Cell Distribution Width 13.8 % (11.6-17.2); White Blood Count 7.7 th/mm3 (4.0-11.0)
[2017-08-22] MEDS: Sod Chloride 0.9% Inj 1,000 ML IV.CONT SCH ×2 (09:39→17:40)
--- NOTE | 2017-08-22 10:12 | P.PN ---
Subjective Interval history: Follow-up visit epidural abscess status post L2-L3 decompression laminectomy evacuation of epidural abscess, IVDA. Patient seen and examined today. Reports he is doing well. Denies pain and discomfort. Denies SOB/ dyspnea. Denies chest pain, palpitations, headaches, dizziness. Denies fevers, chills, n/ v/d. Denies dysuria. Physical Exam Vital signs: Vital Signs 08/21/17 12:00 08/21/17 16:00 08/21/17 20:00 Temperature 98.4 F 98.3 F 98.3 F Pulse Rate 87 74 77 Respiratory Rate 16 12 16 Blood Pressure 118/75 129/82 121/80 Pulse Oximetry 98 100 97 08/21/17 21:20 08/21/17 21:30 08/21/17 21:45 Temperature 97.6 F Pulse Rate 98 H 80 77 Respiratory Rate 12 12 13 Blood Pressure 131/84 126/79 128/81 Pulse Oximetry 100 97 99 08/21/17 22:00 08/21/17 23:33 08/22/17 00:00 Temperature 98.0 F 98.3 F Pulse Rate 75 77 Respiratory Rate 10 L 0 L 16 Blood Pressure 114/69 121/80 Pulse Oximetry 96 97 08/22/17 04:00 08/22/17 08:00 Temperature 97.8 F 98.1 F Pulse Rate 66 69 Respiratory Rate 17 20 Blood Pressure 105/71 109/64 Pulse Oximetry 97 98 Intake & Output 08/21/17 08/22/17 08/22/17 18:59 06:59 18:59 Intake Total 1720 / 1720 4167 / 4167 173 / 173 Output Total 600 / 600 4410 / 4410 Balance 1120 / 1120 -243 / -243 173 / 173 Weight 96.7 kg Intake: IV 1000 / 1000 927 / 927 173 / 173 NS Inj 1,000 ML @ 100 mls/hr IV 1000 / 1000 827 / 827 173 / 173 .CONT .Q10H [facility] Rx#:[id number] Ancef Inj 1,000 MG In NS Inj 100 / 100 100 ML @ 200 mls/hr IV.SIG Q8H [facility] Rx#:[id number] Oral 720 / 720 1640 / 1640 Anesthesia Amount 1600 / 1600 Output: Urine 600 / 600 4100 / 4100 Estimated Blood Loss 300 / 300 Wound Drainage # 1 Back Other: # Voids 5 Date of Last Bowel Movement 08/21/17 08/21/17 # Bowel Movements 1 Weight On Admission 96.7 kg Narrative: GENERAL: Well-nourished, well-developed young male patient in [facility]. SKIN: Warm and dry. No rash. HEENT: Normocephalic.Pupils equal and round. Mucous membranes pink and moist. CARDIOVASCULAR: Regular rate and rhythm. RESPIRATORY: No accessory muscle use. Clear to auscultation. Breath sounds equal bilaterally. GASTROINTESTINAL: Abdomen soft, non-tender, nondistended. Normoactive bowel sounds x4. MUSCULOSKELETAL: No obvious deformities. Extremities without clubbing, cyanosis , or edema. Left lumbar paraspinous muscle tenderness to palpation, no bony point tenderness. NEUROLOGICAL: Awake and alert. No obvious cranial nerve deficits. Motor grossly within normal limits. 5/5 strength bilateral lower extremities. Distal lower extremity sensation equal and intact. Normal speech. Results - Labs CBC & Chem 7: 08/22/17 08:44 08/22/17 08:44 Laboratory Results - last 24 hr 08/21/17 08/22/17 09:04 08:44 WBC 7.7 D RBC 3.40 L Hgb 10.3 L Hct 30.3 L MCV 89.2 MCH 30.4 MCHC 34.1 RDW 13.8 Plt Count 275 MPV 9.4 Neut % (Auto) 77.1 H Lymph % (Auto) 16.2 Ferry % (Auto) 5.7 Eos % (Auto) 0.4 Baso % (Auto) 0.6 Neut # (Auto) 6.0 Lymph # (Auto) 1.3 Ferry # (Auto) 0.4 Eos # (Auto) 0.0 Baso # (Auto) 0.0 WBC Differential . Differential Comment Auto diff final Sodium 138 Potassium 3.8 Chloride 102 D Carbon Dioxide 27.5 Anion Gap 9 BUN 12 Creatinine 0.78 Estimated GFR Greater than 89 Random Glucose 72 L Calcium 9.3 Microbiology 08/21/17 20:53 Tissue - Back Gram Stain - Final 08/21/17 20:53 Tissue - Back Fungal Smear - Final No fungal elements seen 08/21/17 20:53 Abscess - Back Fungal Smear - Final No fungal elements seen 08/21/17 20:53 Abscess - Back Gram Stain - Final 08/20/17 16:10 Blood - Peripheral Aerobic Blood Culture - Preliminary No growth in 1 day 08/20/17 16:10 Blood - Peripheral Anaerobic Blood Culture - Preliminary No growth in 1 day 08/20/17 16:15 Blood - Peripheral Aerobic Blood Culture - Preliminary No growth in 1 day 08/20/17 16:15 Blood - Peripheral Anaerobic Blood Culture - Preliminary No growth in 1 day - Imaging Impressions Lumbar Spine X-Ray 08/21/17 00:00 CONCLUSION: Pointer is at L4. - Procedures L2-3 decompresive laminectomy, evacuation of epidural abscess, 08/21/17 Assessment and Plan - Plan 32-year-old male with history of IVDU with Dilaudid presents under [place] act by law enforcement initiated by the girlfriend secondary to ongoing drug use. The patient is s/p recent 10 day hospitalization in [place] at [facility] for discitis/bacteremia, treated with IV Vanco then IV Ancef, however left AMA 4 days ago to return to [facility]. S/P L2-3 decompresive laminectomy, evacuation of epidural abscess, 08/21/17, Dr. Christine Acute Epidural Abscess -MRI of the lumbar spine reviewed, shows epidural abscess at the level of L2- L3 and small abscess at the left paraspinous soft tissues. -Neurosurgery consulted, appreciate recommendations. -Continue antibiotics with IV Vancomycin and Rocephin, now on Ancef per neurosurgery recommendations -Infectious disease consulted, appreciate recommendations -Blood cultures NGTD -day 1 -Echo pending to rule out endocarditis -Records requested from previous hospital -Pain management Noble, toradol morphine for breakthrough IV drug abuse acute on chronic -Counseled on cessation -Noble, toradol, morphine Charlton act -Psychiatry consulted, appreciate assistance DVT Prophylaxis: teds/SCDs; avoid chemoprophylaxis with upcoming surgery
[2017-08-22 10:19] LABS: Anion Gap 9 meq/L (5-15); Blood Urea Nitrogen 8 mg/dL (7-18); Calcium 8.9 mg/dL (8.5-10.1); Carbon Dioxide 26.7 meq/L (21.0-32.0); Chloride 104 meq/L (98-107); Glomerular Filtration Rate Greater Than 89 mL/min (>89); Glucose,Random 138 mg/dL (74-106); Potassium 3.9 meq/L (3.5-5.1); Sodium 140 meq/L (136-145)
[2017-08-22] MEDS ORDERED: Vancomycin Inj 1,500 MG in Sodium Chlor 0.9% Inj 500 ML IV.SIG SCH (12:00)
[2017-08-22] MEDS: Vancomycin Inj 1,500 MG in Sodium Chlor 0.9% Inj 500 ML IV.SIG SCH (14:32)
[2017-08-22] MEDS: Morphine Inj 4 MG/ML Vial IV.PUSH PRN ×2 (15:05→20:44)
--- NOTE | 2017-08-22 16:27 | P.PNNS ---
Subjective Interval history: 08/22: POD 1 evacuation of epidural abscess, reports pain controlled. denies radiculopathy, focal weakness in legs. <Yadira Szymanski - Last Filed: 08/22/17 16:27> Physical Exam Vital signs: Vital Signs 08/21/17 20:00 08/21/17 21:20 08/21/17 21:30 Temperature 98.3 F 97.6 F Pulse Rate 77 98 H 80 Respiratory Rate 16 12 12 Blood Pressure 121/80 131/84 126/79 Pulse Oximetry 97 100 97 08/21/17 21:45 08/21/17 22:00 08/21/17 23:33 Temperature 98.0 F Pulse Rate 77 75 Respiratory Rate 13 10 L 0 L Blood Pressure 128/81 114/69 Pulse Oximetry 99 96 08/22/17 00:00 08/22/17 04:00 08/22/17 08:00 Temperature 98.3 F 97.8 F 98.1 F Pulse Rate 77 66 69 Respiratory Rate 16 17 20 Blood Pressure 121/80 105/71 109/64 Pulse Oximetry 97 97 98 08/22/17 12:00 08/22/17 13:18 Temperature 97.9 F Pulse Rate 98 H Respiratory Rate 20 16 Blood Pressure 118/61 Pulse Oximetry 98 Intake & Output 08/21/17 08/22/17 08/22/17 18:59 06:59 18:59 Intake Total 1720 / 1720 4167 / 4167 993 / 993 Output Total 600 / 600 4410 / 4410 1475 / 1475 Balance 1120 / 1120 -243 / -243 -482 / -482 Weight 96.7 kg Intake: IV 1000 / 1000 927 / 927 273 / 273 NS Inj 1,000 ML @ 100 mls/hr IV 1000 / 1000 827 / 827 173 / 173 .CONT .Q10H [facility] Rx#:[id number] Ancef Inj 1,000 MG In NS Inj 100 / 100 100 / 100 100 ML @ 200 mls/hr IV.SIG Q8H [facility] Rx#:[id number] Oral 720 / 720 1640 / 1640 720 / 720 Anesthesia Amount 1600 / 1600 Output: Urine 600 / 600 4100 / 4100 1400 / 1400 Estimated Blood Loss 300 / 300 Wound Drainage 75 / 75 # 1 Back 75 / 75 Other: # Voids 5 Date of Last Bowel Movement 08/21/17 08/21/17 08/21/17 # Bowel Movements 1 Weight On Admission 96.7 kg - Constitutional no acute distress - Routine HEENT Exam Head: Present: normocephalic, atraumatic Eye: Present: EOMI, PERRL - Routine Neck Exam Present: supple - Routine Extremities Exam Present: full ROM - Routine Neurological Exam Present: alert, oriented X3 <Yadira Szymanski - Last Filed: 08/22/17 16:27> Vital signs: Vital Signs 08/24/17 20:00 08/24/17 21:52 08/25/17 04:00 Temperature 98.4 F 98.0 F 97.8 F Pulse Rate 83 79 87 Respiratory Rate 16 18 18 Blood Pressure 129/73 128/60 118/80 Pulse Oximetry 100 100 100 08/25/17 05:00 08/25/17 05:01 08/25/17 08:25 Temperature 98.4 F Pulse Rate 67 Respiratory Rate 16 16 16 Blood Pressure 128/77 Pulse Oximetry 99 08/25/17 12:00 08/25/17 16:37 Temperature 99.0 F 98.6 F Pulse Rate 89 91 H Respiratory Rate 16 18 Blood Pressure 133/79 148/89 H Pulse Oximetry 98 96 Intake & Output 08/25/17 08/25/17 08/26/17 06:59 18:59 06:59 Intake Total 4145 / 4145 Output Total 460 / 460 Balance 3685 / 3685 Weight 96.162 kg Intake: IV 1545 / 1545 Vancomycin Inj 1,500 MG In NS 1030 / 1030 Inj 500 ML @ 257.5 mls/hr IV. SIG Q8H [facility] Rx#:[id number] Oral 1000 / 1000 Anesthesia Amount 1600 / 1600 Output: Urine 300 / 300 Estimated Blood Loss 150 / 150 Wound Drainage # 1 Back Other: # Voids 5 3 Date of Last Bowel Movement 08/24/17 08/25/17 # Bowel Movements 2 1 <Milton Christine - Last Filed: 08/25/17 19:03> Assessment and Plan - Assessment (1) S/P lumbar laminectomy Code(s): Z98.890 - Other specified postprocedural states Status: Acute (2) Epidural abscess Code(s): G06.2 - Extradural and subdural abscess, unspecified Status: Acute - Plan cont SEBAS draining, continue strict bed rest cont antibiotics tx f/u cultures and pathology SCDs and TEDs for dvt prophylaxis protonix for gi prophylaxis <Yadira Szymanski - Last Filed: 08/22/17 16:27> - Assessment (1) S/P lumbar laminectomy Code(s): Z98.890 - Other specified postprocedural states Status: Acute (2) Epidural abscess Code(s): G06.2 - Extradural and subdural abscess, unspecified Status: Acute - Plan The exam, history, and the medical decision-making described in the above note were completed with the assistance of the mid-level provider. I reviewed and agree with the findings presented. I attest that I had a [id number] encounter with the patient on the same day, and personally performed and documented my assessment and findings in the medical record. <Milton Christine - Last Filed: 08/25/17 19:03>
--- NOTE | 2017-08-22 16:54 | P.PNID ---
Subjective Remarks: Patient notes pain at the surgical site in the back. Notes it is different from the pre surgery sharp stabbing pain. Afebrile. No chills. Post drainage of lumbar epidural abscess and lumbar laminectomy 08/21/17. Presented to the emergency department after he was Charl[place] Acted by police. patient has a history of IV drug abuse. He was recently hospitalized at [facility] in [facility] after he was found to have "cyst on the lumbar spine". He was treated with intravenous Ancef and was supposed to be treated for 6 weeks. He left the hospital against medical advice and came to the [facility]. The patient was having pain in his back for about a month prior to admission to [facility]. Antibiotics: Cefazolin Lines: peripheral IV intact. Allergies/Adverse Reactions: Allergies piperacillin [From Zosyn] Allergy (Verified 08/20/17 14:58) unknown tazobactam [From Zosyn] Allergy (Verified 08/20/17 14:58) unknown Objective Vital Signs 08/21/17 20:00 08/21/17 21:20 08/21/17 21:30 Temperature 98.3 F 97.6 F Pulse Rate 77 98 H 80 Respiratory Rate 16 12 12 Blood Pressure 121/80 131/84 126/79 Pulse Oximetry 97 100 97 08/21/17 21:45 08/21/17 22:00 08/21/17 23:33 Temperature 98.0 F Pulse Rate 77 75 Respiratory Rate 13 10 L 0 L Blood Pressure 128/81 114/69 Pulse Oximetry 99 96 08/22/17 00:00 08/22/17 04:00 08/22/17 08:00 Temperature 98.3 F 97.8 F 98.1 F Pulse Rate 77 66 69 Respiratory Rate 16 17 20 Blood Pressure 121/80 105/71 109/64 Pulse Oximetry 97 97 98 08/22/17 12:00 08/22/17 13:18 Temperature 97.9 F Pulse Rate 98 H Respiratory Rate 20 16 Blood Pressure 118/61 Pulse Oximetry 98 Intake & Output 08/21/17 08/22/17 08/22/17 18:59 06:59 18:59 Intake Total 1720 / 1720 4167 / 4167 993 / 993 Output Total 600 / 600 4410 / 4410 1475 / 1475 Balance 1120 / 1120 -243 / -243 -482 / -482 Weight 96.7 kg Intake: IV 1000 / 1000 927 / 927 273 / 273 NS Inj 1,000 ML @ 100 mls/hr IV 1000 / 1000 827 / 827 173 / 173 .CONT .Q10H [facility] Rx#:[id number] Ancef Inj 1,000 MG In NS Inj 100 / 100 100 / 100 100 ML @ 200 mls/hr IV.SIG Q8H [facility] Rx#:[id number] Oral 720 / 720 1640 / 1640 720 / 720 Anesthesia Amount 1600 / 1600 Output: Urine 600 / 600 4100 / 4100 1400 / 1400 Estimated Blood Loss 300 / 300 Wound Drainage 75 / 75 # 1 Back 75 / 75 Other: # Voids 5 Date of Last Bowel Movement 08/21/17 08/21/17 08/21/17 # Bowel Movements 1 Weight On Admission 96.7 kg 08/21/17 20:53 Tissue - Back Gram Stain - Final 08/21/17 20:53 Tissue - Back Wound Culture - Preliminary No growth in 24 hours 08/21/17 20:53 Abscess - Back Gram Stain - Final 08/21/17 20:53 Abscess - Back Wound Culture - Preliminary No growth in 24 hours 08/20/17 16:10 Blood - Peripheral Aerobic Blood Culture - Preliminary No growth in 2 days 08/20/17 16:10 Blood - Peripheral Anaerobic Blood Culture - Preliminary No growth in 2 days 08/20/17 16:15 Blood - Peripheral Aerobic Blood Culture - Preliminary No growth in 2 days 08/20/17 16:15 Blood - Peripheral Anaerobic Blood Culture - Preliminary No growth in 2 days 08/21/17 20:53 Tissue - Back Fungal Smear - Final No fungal elements seen 08/21/17 20:53 Tissue - Back Fungal Culture - Pending 08/21/17 20:53 Abscess - Back Fungal Smear - Final No fungal elements seen 08/21/17 20:53 Abscess - Back Fungal Culture - Pending 08/21/17 20:53 Tissue - Back Acid Fast Bacilli Smear - Pending 08/21/17 20:53 Tissue - Back Mycobacterial Culture - Pending 08/21/17 20:53 Abscess - Back Acid Fast Bacilli Smear - Pending 08/21/17 20:53 Abscess - Back Mycobacterial Culture - Pending Lab - Hematology Results 08/21/17 08/22/17 09:04 08:44 WBC 4.6 D 7.7 D RBC 3.79 L 3.40 L Hgb 11.3 L 10.3 L Hct 33.9 L 30.3 L MCV 89.5 89.2 MCH 29.8 30.4 MCHC 33.3 34.1 RDW 14.4 13.8 Plt Count 261 275 MPV 9.3 9.4 Neut % (Auto) 45.3 77.1 H Lymph % (Auto) 38.7 16.2 Ford % (Auto) 11.5 H 5.7 Eos % (Auto) 3.7 0.4 Baso % (Auto) 0.8 0.6 Neut # (Auto) 2.1 6.0 Lymph # (Auto) 1.8 1.3 Ford # (Auto) 0.5 0.4 Eos # (Auto) 0.2 0.0 Baso # (Auto) 0.0 0.0 WBC Differential . . Differential Comment Auto diff final Auto diff final Lab - Chemistry Results 08/20/17 08/20/17 08/21/17 14:46 16:10 09:04 Sodium 138 Potassium 3.8 Chloride 102 D Carbon Dioxide 27.5 Anion Gap 9 BUN 12 Creatinine 0.78 Estimated GFR Greater than 89 Random Glucose 72 L Lactic Acid 0.6 Calcium 9.3 Total Creatine Kinase 515 H CK-MB (CK-2) 1.9 CK-MB (CK-2) % 0.4 08/22/17 08:44 Sodium 140 Potassium 3.9 Chloride 104 Carbon Dioxide 26.7 Anion Gap 9 BUN 8 Creatinine 0.92 Estimated GFR Greater than 89 Random Glucose 138 H Lactic Acid Calcium 8.9 Total Creatine Kinase CK-MB (CK-2) CK-MB (CK-2) % Imaging: ITS Impressions Lumbar Spine MRI 08/20/17 14:58 CONCLUSION: 1. Posterior epidural abscess. This is at the L2-L3 level. This left the inflammatory change appears to be centered around the left L2-3 facet joint with extension in the posterior epidural space and the posterior paraspinous soft tissues. The abscess in the posterior epidural space measures approximately 1.6 cm in diameter. There is a 1.2 x 0.8 x 0.6 cm small abscess in the posterior left paraspinous soft tissues. 2. Mild disc protrusion at the left lateral recess and left neural foraminal region causing narrowing of the left neural foramina at the L4-L5 level. Thoracic Spine MRI 08/20/17 14:58 CONCLUSION: 1. No areas of discitis or osteomyelitis are seen. 2. Mild disc changes at the mid thoracic spine as described above. Physical Exam: GENERAL: Patient in NAD. HEENT: Head is atraumatic. Extraocular movements grossly intact. Pupils reactive to light. No icterus. No conjunctival erythema. Oropharynx: Moist mucosa without lesions. NECK: Supple without adenopathy. LUNGS: Clear breath sounds. HEART: Regular S1, S2. No murmurs, rubs or gallops. ABDOMEN: Bowel sounds present. Soft, nontender. No palpable mass. BACK: Drainage catheter has serous drainage. EXTREMITIES: No clubbing, cyanosis or edema. Well-developed musculature. SKIN: No diffuse rash. NEUROLOGIC: No gross focal finding. PSYCHIATRIC: Calm and cooperative. Appropriate affect. Assessment and Plan - Plan ASSESSMENT: 1. Epidural abscess of the lumbar spine. 2. Diskitis of the lumbar spine. 3. IV drug abuse. RECOMMENDATIONS: 1. Resume vancomycin. 2. Continue Cefazolin. 3. Follow cultures.
[2017-08-22] MEDS ORDERED: Pharmacy Ordered Lab Info OTHER ONE (19:45)
[2017-08-23] MEDS: Temazepam 15 MG Capsule PO PRN ×2 (00:13→21:30)
[2017-08-23] MEDS: Ketorolac Inj 30 MG/ML (IVP) Vial IV.PUSH PRN ×2 (00:13→20:08)
[2017-08-23] MEDS: Vancomycin Inj 1,500 MG in Sodium Chlor 0.9% Inj 500 ML IV.SIG SCH ×2 (00:18→12:45)
[2017-08-23] MEDS: Sod Chloride 0.9% Inj 1,000 ML IV.CONT SCH ×2 (00:20→02:22)
[2017-08-23] MEDS: Senna/Docusate Sodium 8.6/50 MG Tablet PO SCH ×2 (08:14→23:03)
--- NOTE | 2017-08-23 09:29 | P.PN ---
Subjective Interval history: Follow-up visit epidural abscess status post L2-L3 decompression laminectomy evacuation of epidural abscess, IVDA. Patient seen and examined today. Reports he is doing okay. NO acute issues overnight. Denies pain and discomfort. Denies SOB/ dyspnea. Denies chest pain, palpitations, headaches, dizziness. Denies fevers, chills, n/v/d. Denies dysuria. Physical Exam Vital signs: Vital Signs 08/22/17 12:00 08/22/17 13:18 08/22/17 16:00 Temperature 97.9 F 98.6 F Pulse Rate 98 H 81 Respiratory Rate 20 16 20 Blood Pressure 118/61 108/67 Pulse Oximetry 98 97 08/22/17 20:00 08/23/17 00:00 08/23/17 02:21 Temperature 98.5 F 98.5 F Pulse Rate 84 87 Respiratory Rate 18 18 18 Blood Pressure 104/56 L 124/72 Pulse Oximetry 96 97 08/23/17 03:51 08/23/17 04:00 08/23/17 06:24 Temperature 98.2 F Pulse Rate 82 Respiratory Rate 18 18 18 Blood Pressure 126/74 Pulse Oximetry 96 Intake & Output 08/22/17 08/23/17 08/23/17 18:59 06:59 18:59 Intake Total 993 / 993 4130 / 4130 Output Total 1475 / 1475 1620 / 1620 Balance -482 / -482 2510 / 2510 Intake: IV 273 / 273 3130 / 3130 NS Inj 1,000 ML @ 100 mls/hr IV 173 / 173 1000 / 1000 .CONT .Q10H [facility] Rx#:[id number] LR 1000 mL Inj 1,000 ML @ 30 1000 / 1000 mls/hr IV.SIG .Q24H [facility] Rx#: [id number] Vancomycin Inj 1,500 MG In NS 1030 / 1030 Inj 500 ML @ 257.5 mls/hr IV. SIG Q12H [facility] Rx#:[id number] Ancef Inj 1,000 MG In NS Inj 100 / 100 100 / 100 100 ML @ 200 mls/hr IV.SIG Q8H [facility] Rx#:[id number] Oral 720 / 720 1000 / 1000 Output: Urine 1400 / 1400 1600 / 1600 Wound Drainage 75 / 75 20 / 20 # 1 Back 75 / 75 20 / 20 Other: Date of Last Bowel Movement 08/21/17 08/22/17 08/23/17 Narrative: GENERAL: Well-nourished, well-developed young male patient in [facility]. SKIN: Warm and dry. No rash. HEENT: Normocephalic.Pupils equal and round. Mucous membranes pink and moist. CARDIOVASCULAR: Regular rate and rhythm. RESPIRATORY: No accessory muscle use. Clear to auscultation. Breath sounds equal bilaterally. GASTROINTESTINAL: Abdomen soft, non-tender, nondistended. Normoactive bowel sounds x4. MUSCULOSKELETAL: No obvious deformities. Extremities without clubbing, cyanosis , or edema. Left lumbar paraspinous muscle tenderness to palpation, no bony point tenderness. NEUROLOGICAL: Awake and alert. No obvious cranial nerve deficits. Motor grossly within normal limits. 5/5 strength bilateral lower extremities. Distal lower extremity sensation equal and intact. Normal speech. Results - Labs CBC & Chem 7: 08/23/17 09:29 08/23/17 09:29 Laboratory Results - last 24 hr 08/22/17 08/22/17 08:44 08:44 WBC 7.7 D RBC 3.40 L Hgb 10.3 L Hct 30.3 L MCV 89.2 MCH 30.4 MCHC 34.1 RDW 13.8 Plt Count 275 MPV 9.4 Neut % (Auto) 77.1 H Lymph % (Auto) 16.2 [place] % (Auto) 5.7 Eos % (Auto) 0.4 Baso % (Auto) 0.6 Neut # (Auto) 6.0 Lymph # (Auto) 1.3 [place] # (Auto) 0.4 Eos # (Auto) 0.0 Baso # (Auto) 0.0 WBC Differential . Differential Comment Auto diff final Sodium 140 Potassium 3.9 Chloride 104 Carbon Dioxide 26.7 Anion Gap 9 BUN 8 Creatinine 0.92 Estimated GFR Greater than 89 Random Glucose 138 H Calcium 8.9 Microbiology 08/21/17 20:53 Tissue - Back Gram Stain - Final 08/21/17 20:53 Tissue - Back Wound Culture - Preliminary No growth in 24 hours 08/21/17 20:53 Abscess - Back Gram Stain - Final 08/21/17 20:53 Abscess - Back Wound Culture - Preliminary No growth in 24 hours 08/20/17 16:10 Blood - Peripheral Aerobic Blood Culture - Preliminary No growth in 2 days 08/20/17 16:10 Blood - Peripheral Anaerobic Blood Culture - Preliminary No growth in 2 days 08/20/17 16:15 Blood - Peripheral Aerobic Blood Culture - Preliminary No growth in 2 days 08/20/17 16:15 Blood - Peripheral Anaerobic Blood Culture - Preliminary No growth in 2 days 08/21/17 20:53 Tissue - Back Fungal Smear - Final No fungal elements seen 08/21/17 20:53 Abscess - Back Fungal Smear - Final No fungal elements seen - Procedures L2-3 decompresive laminectomy, evacuation of epidural abscess, 08/21/17 Assessment and Plan - Plan 32-year-old male with history of IVDU with Dilaudid presents under [place] act by law enforcement initiated by the girlfriend secondary to ongoing drug use. The patient is s/p recent 10 day hospitalization in [place] at [facility] for discitis/bacteremia, treated with IV Vanco then IV Ancef, however left AMA 4 days ago to return to [facility]. S/P L2-3 decompresive laminectomy, evacuation of epidural abscess, 08/21/17, Dr. Christine Acute Epidural Abscess -MRI of the lumbar spine reviewed, shows epidural abscess at the level of L2- L3 and small abscess at the left paraspinous soft tissues. -Neurosurgery consulted, appreciate recommendations. -Continue antibiotics with IV Vancomycin and Rocephin, now on Ancef per neurosurgery recommendations -Infectious disease consulted, appreciate recommendations, continue Vanco and cefazolin -Blood cultures NGTD -day 3 -Echo pending to rule out endocarditis -Records requested from previous hospital -Pain management [place], toradol morphine for breakthrough IV drug abuse acute on chronic -Counseled on cessation -[place], toradol, morphine [place] act -Psychiatry consulted, appreciate assistance DVT Prophylaxis: teds/SCDs; avoid chemoprophylaxis with upcoming surgery Code Status: Full Code Discussed Condition With: Patient, nursing Discharge Planning: Plan to DC home when cleared by neurosx and ID. Hx IVDA
[2017-08-23 10:24] LABS: Baso % (Auto) 0.6 % (0.0-2.0); Eos # (Auto) 0.1 th/mm3 (0.0-0.4); Eos % (Auto) 1.6 % (0.0-4.0); Hematocrit 31.7 % (39.0-51.0); Hemoglobin 10.6 gm/dL (13.0-17.0); Lymph # (Auto) 1.2 th/mm3 (1.0-4.8); Lymph % (Auto) 25.8 % (9.0-44.0); Mean Corpuscular HGB Conc 33.3 % (32.0-36.0); Mean Corpuscular Hemoglobin 29.8 pg (27.0-34.0); Mean Corpuscular Volume 89.6 fL (80.0-100.0); Mean Platelet Volume 9.7 fL (7.0-11.0); Mono # (Auto) 0.2 th/mm3 (0.0-0.9); Mono % (Auto) 4.7 % (0.0-8.0); Neut # (Auto) 3.1 th/mm3 (1.8-7.7); Neut % (Auto) 67.3 % (16.0-70.0); Platelet Count 246 th/mm3 (150-450); Red Blood Count 3.54 mil/mm3 (4.50-5.90); Red Cell Distribution Width 14.3 % (11.6-17.2); White Blood Count 4.6 th/mm3 (4.0-11.0)
[2017-08-23 10:56] LABS: Anion Gap 8 meq/L (5-15); Blood Urea Nitrogen 4 mg/dL (7-18); Carbon Dioxide 29.9 meq/L (21.0-32.0); Chloride 102 meq/L (98-107); Glomerular Filtration Rate Greater Than 89 mL/min (>89); Glucose,Random 127 mg/dL (74-106); Potassium 3.5 meq/L (3.5-5.1); Sodium 140 meq/L (136-145)
[2017-08-23] MEDS: Morphine Inj 4 MG/ML Vial IV.PUSH PRN ×3 (11:11→21:30)
--- NOTE | 2017-08-23 13:58 | P.PNNS ---
Subjective Interval history: 08/23: nursing reports pt seen ambulating, noncompliance with bed rest order. report moderate lumbar pain, denies symptoms in legs. Physical Exam Vital signs: Vital Signs 08/22/17 16:00 08/22/17 20:00 08/23/17 00:00 Temperature 98.6 F 98.5 F 98.5 F Pulse Rate 81 84 87 Respiratory Rate 20 18 18 Blood Pressure 108/67 104/56 L 124/72 Pulse Oximetry 97 96 97 08/23/17 02:21 08/23/17 03:51 08/23/17 04:00 Temperature 98.2 F Pulse Rate 82 Respiratory Rate 18 18 18 Blood Pressure 126/74 Pulse Oximetry 96 08/23/17 06:24 08/23/17 08:00 08/23/17 09:31 Temperature Pulse Rate Respiratory Rate 18 14 16 Blood Pressure Pulse Oximetry 08/23/17 11:04 08/23/17 13:40 Temperature 98.8 F Pulse Rate 109 H Respiratory Rate 14 16 Blood Pressure 132/87 Pulse Oximetry Intake & Output 08/22/17 08/23/17 08/23/17 18:59 06:59 18:59 Intake Total 993 / 993 4130 / 4130 Output Total 1475 / 1475 1620 / 1620 Balance -482 / -482 2510 / 2510 Intake: IV 273 / 273 3130 / 3130 NS Inj 1,000 ML @ 100 mls/hr IV 173 / 173 1000 / 1000 .CONT .Q10H [facility] Rx#:[id number] LR 1000 mL Inj 1,000 ML @ 30 1000 / 1000 mls/hr IV.SIG .Q24H [facility] Rx#: [id number] Vancomycin Inj 1,500 MG In NS 1030 / 1030 Inj 500 ML @ 257.5 mls/hr IV. SIG Q12H [facility] Rx#:[id number] Ancef Inj 1,000 MG In NS Inj 100 / 100 100 / 100 100 ML @ 200 mls/hr IV.SIG Q8H [facility] Rx#:[id number] Oral 720 / 720 1000 / 1000 Output: Urine 1400 / 1400 1600 / 1600 Wound Drainage 75 / 75 20 / 20 # 1 Back 75 / 75 20 / 20 Other: Date of Last Bowel Movement 08/21/17 08/22/17 08/23/17 Narrative: GENERAL: comfortable NAD SKIN: Warm and dry. SEBAS drain from lumbar with moderate drainage. HEAD: Normocephalic. EYES: No scleral icterus. No injection or drainage. NECK: Supple, trachea midline. No JVD or lymphadenopathy. CARDIOVASCULAR: Regular rate and rhythm without murmurs, gallops, or rubs. RESPIRATORY: Breath sounds equal bilaterally. No accessory muscle use. MUSCULOSKELETAL: No cyanosis, or edema. Moves lower extremities 5/5 Assessment and Plan - Assessment (1) S/P lumbar laminectomy Code(s): Z98.890 - Other specified postprocedural states Status: Acute (2) Epidural abscess Code(s): G06.2 - Extradural and subdural abscess, unspecified Status: Acute - Plan cont SEBAS draining today, will dc tomorrow continue strict bed rest today, dw patient he remains on strict bed rest, will start mobilizing tomorrow morning cont antibiotics tx f/u cultures and pathology. ID following SCDs and TEDs for dvt prophylaxis protonix for gi prophylaxis
[2017-08-24] MEDS ORDERED: Pharmacy Ordered Lab Info OTHER ONE (00:45)
[2017-08-24] MEDS: Morphine Inj 4 MG/ML Vial IV.PUSH PRN ×2 (02:56→08:24)
[2017-08-24] MEDS: Vancomycin Inj 1,500 MG in Sodium Chlor 0.9% Inj 500 ML IV.SIG SCH ×3 (02:56→14:07)
[2017-08-24] MEDS: Ketorolac Inj 30 MG/ML (IVP) Vial IV.PUSH PRN ×2 (04:54→15:44)
[2017-08-24] MEDS: Senna/Docusate Sodium 8.6/50 MG Tablet PO SCH (08:21)
--- NOTE | 2017-08-24 09:20 | P.PNIM ---
Subjective Interval history: f/u; epidural abscess resting comfortably with no distress. pain is controlled.Tmax 99.9.no other new complaints. Physical Exam Vital signs: Vital Signs 08/23/17 09:31 08/23/17 11:04 08/23/17 13:40 Temperature 98.8 F Pulse Rate 109 H Respiratory Rate 16 14 16 Blood Pressure 132/87 Pulse Oximetry 08/23/17 14:48 08/23/17 16:00 08/23/17 20:00 Temperature 99.9 F H 99.1 F Pulse Rate 92 H 91 H Respiratory Rate 14 20 Blood Pressure 134/81 146/80 H Pulse Oximetry 98 96 08/23/17 23:02 08/24/17 00:00 08/24/17 04:00 Temperature 98.1 F 98.1 F Pulse Rate 70 80 Respiratory Rate 18 18 18 Blood Pressure 125/83 136/90 Pulse Oximetry 99 100 08/24/17 06:24 08/24/17 06:25 Temperature Pulse Rate Respiratory Rate 16 16 Blood Pressure Pulse Oximetry Intake & Output 08/23/17 08/24/17 08/24/17 18:59 06:59 18:59 Intake Total 515 / 515 515 / 515 Output Total 1100 / 1100 Balance 515 / 515 -585 / -585 -10 Weight 94.2 kg Intake: IV 515 / 515 515 / 515 Vancomycin Inj 1,500 MG In NS 515 / 515 515 / 515 Inj 500 ML @ 257.5 mls/hr IV. SIG Q12H [facility] Rx#:[id number] Output: Urine 1100 / 1100 Wound Drainage # 1 Back Other: Date of Last Bowel Movement 08/23/17 08/23/17 08/24/17 # Bowel Movements 2 - Routine Respiratory Exam Present: CTA bilaterally - Routine Cardiovascular Exam Present: RRR - Routine Abdominal Exam Present: soft - Routine Extremities Exam Comments: no pedal edema. - Routine Neurological Exam Present: alert, oriented X3 Results - Labs CBC & Chem 7: 08/23/17 09:29 08/23/17 09:29 Laboratory Results - last 24 hr 08/23/17 08/23/17 08/24/17 09:29 09:29 01:45 WBC 4.6 RBC 3.54 L Hgb 10.6 L Hct 31.7 L MCV 89.6 MCH 29.8 MCHC 33.3 RDW 14.3 Plt Count 246 MPV 9.7 Neut % (Auto) 67.3 Lymph % (Auto) 25.8 [place] % (Auto) 4.7 Eos % (Auto) 1.6 Baso % (Auto) 0.6 Neut # (Auto) 3.1 Lymph # (Auto) 1.2 [place] # (Auto) 0.2 Eos # (Auto) 0.1 Baso # (Auto) 0.0 WBC Differential . Differential Comment Auto diff final Sodium 140 Potassium 3.5 Chloride 102 Carbon Dioxide 29.9 Anion Gap 8 BUN 4 L Creatinine 0.93 Estimated GFR Greater than 89 Random Glucose 127 H Calcium 9.0 Vancomycin Trough 6.4 Microbiology 08/21/17 20:53 Tissue - Back Gram Stain - Final 08/21/17 20:53 Tissue - Back Wound Culture - Preliminary No growth in 48 hours 08/21/17 20:53 Abscess - Back Gram Stain - Final 08/21/17 20:53 Abscess - Back Wound Culture - Preliminary No growth in 48 hours 08/21/17 20:53 Tissue - Back Acid Fast Bacilli Smear - Final No acid fast bacilli seen 08/21/17 20:53 Abscess - Back Acid Fast Bacilli Smear - Final No acid fast bacilli seen 08/20/17 16:10 Blood - Peripheral Aerobic Blood Culture - Preliminary No growth in 3 days 08/20/17 16:10 Blood - Peripheral Anaerobic Blood Culture - Preliminary No growth in 3 days 08/20/17 16:15 Blood - Peripheral Aerobic Blood Culture - Preliminary No growth in 3 days 08/20/17 16:15 Blood - Peripheral Anaerobic Blood Culture - Preliminary No growth in 3 days - Procedures L2-3 decompresive laminectomy, evacuation of epidural abscess, 08/21/17 Assessment and Plan - Plan 32-year-old male with history of IVDU with Dilaudid presents under [place] act by law enforcement initiated by the girlfriend secondary to ongoing drug use. The patient is s/p recent 10 day hospitalization in [place] at [facility] for discitis/bacteremia, treated with IV Vanco then IV Ancef, however left AMA 4 days ago to return to [facility]. S/P L2-3 decompresive laminectomy, evacuation of epidural abscess, 08/21/17, Dr. Christine Acute Epidural Abscess -MRI of the lumbar spine reviewed, shows epidural abscess at the level of L2- L3 and small abscess at the left paraspinous soft tissues. -Neurosurgery consulted, appreciate recommendations. -Continue antibiotics with IV Vancomycin . -Infectious disease consulted, appreciate recommendations, continue Vanco - -Blood cultures negative so far. -Echo with no vegetation. -Records requested from previous hospital -Pain management [place], toradol morphine for breakthrough IV drug abuse acute on chronic -Counseled on cessation -[place], toradol, morphine [place] act -Psychiatry consulted, appreciate assistance DVT Prophylaxis: teds/SCDs; per neurosurgery. Discharge Planning: when cleared by neurosurgery on ID.
--- NOTE | 2017-08-24 15:14 | P.PNNS ---
Subjective Interval history: 08/24: doing well, continues to be noncompliant to bed rest per nursing overnight. Physical Exam Vital signs: Vital Signs 08/23/17 16:00 08/23/17 20:00 08/23/17 23:02 Temperature 99.9 F H 99.1 F Pulse Rate 92 H 91 H Respiratory Rate 20 18 Blood Pressure 134/81 146/80 H Pulse Oximetry 98 96 08/24/17 00:00 08/24/17 04:00 08/24/17 06:24 Temperature 98.1 F 98.1 F Pulse Rate 70 80 Respiratory Rate 18 18 16 Blood Pressure 125/83 136/90 Pulse Oximetry 99 100 08/24/17 06:25 08/24/17 08:00 08/24/17 12:00 Temperature 97.4 F L 98.5 F Pulse Rate 82 101 H Respiratory Rate 16 16 16 Blood Pressure 118/66 154/83 H Pulse Oximetry 99 98 Intake & Output 08/23/17 08/24/17 08/24/17 18:59 06:59 18:59 Intake Total 515 / 515 515 / 515 Output Total 1100 / 1100 Balance 515 / 515 -585 / -585 -10 Weight 94.2 kg Intake: IV 515 / 515 515 / 515 Vancomycin Inj 1,500 MG In NS 515 / 515 515 / 515 Inj 500 ML @ 257.5 mls/hr IV. SIG Q12H [facility] Rx#:[id number] Output: Urine 1100 / 1100 Wound Drainage # 1 Back Other: Date of Last Bowel Movement 08/23/17 08/23/17 08/24/17 # Bowel Movements 2 Narrative: GENERAL: comfortable NAD SKIN: Warm and dry. SEBAS drain from lumbar with minimal drainage. Surgical incision is healing well, sutures in place with Dermabond prineo dressing. HEAD: Normocephalic. EYES: No scleral icterus. No injection or drainage. NECK: Supple, trachea midline. No JVD or lymphadenopathy. CARDIOVASCULAR: Regular rate and rhythm without murmurs, gallops, or rubs. RESPIRATORY: Breath sounds equal bilaterally. No accessory muscle use. MUSCULOSKELETAL: No cyanosis, or edema. Moves lower extremities 5/5 Assessment and Plan - Assessment (1) S/P lumbar laminectomy Code(s): Z98.890 - Other specified postprocedural states Status: Acute (2) Epidural abscess Code(s): G06.2 - Extradural and subdural abscess, unspecified Status: Acute - Plan SEBAS drain removed, using sterile technique area infiltrated with 2% Xylocaine, single nylon stitched placed. patient tolerated procedure well. cleared to mobilize oob with corset brace cont antibiotics tx f/u cultures and pathology. ID following SCDs and TEDs for dvt prophylaxis Protonix for gi prophylaxis clear to dc from nrs standpoint when cleared by ID, follow up in office in 10 days for removal of sutures
[2017-08-24 18:23] LABS: Amphetamine Screen,Urine Neg (Neg); Barbiturate Screen,Urine Neg (Neg); Cannabinoid Screen,Urine Neg (Neg); Cocaine Screen,Urine Neg (Neg)
[2017-08-24 18:28] LABS: Opiate Screen,Urine Neg (Neg)
[2017-08-25] MEDS: Vancomycin Inj 1,500 MG in Sodium Chlor 0.9% Inj 500 ML IV.SIG SCH ×3 (01:13→13:33)
[2017-08-25] MEDS: Senna/Docusate Sodium 8.6/50 MG Tablet PO SCH ×3 (01:14→20:25)
[2017-08-25] MEDS: Ketorolac Inj 30 MG/ML (IVP) Vial IV.PUSH PRN ×3 (02:05→16:13)
[2017-08-25] MEDS: Morphine Inj 4 MG/ML Vial IV.PUSH PRN ×3 (03:41→17:10)
[2017-08-25] MEDS ORDERED: Pharmacy Ordered Lab Info OTHER ONE (11:45)
--- NOTE | 2017-08-25 12:34 | P.PNIM ---
Subjective Interval history: All blood cultures have remained negative on most recent evaluations. Patient has no new complaints. No fevers overnight. Neurosurgery has cleared this patient for discharge. Physical Exam Vital signs: Vital Signs 08/24/17 16:00 08/24/17 20:00 08/24/17 21:52 Temperature 98 F 98.4 F 98.0 F Pulse Rate 95 H 83 79 Respiratory Rate 18 16 18 Blood Pressure 130/83 129/73 128/60 Pulse Oximetry 98 100 100 08/25/17 04:00 08/25/17 05:00 08/25/17 05:01 Temperature 97.8 F Pulse Rate 87 Respiratory Rate 18 16 16 Blood Pressure 118/80 Pulse Oximetry 100 08/25/17 08:25 08/25/17 12:00 Temperature 98.4 F 99.0 F Pulse Rate 67 89 Respiratory Rate 16 16 Blood Pressure 128/77 133/79 Pulse Oximetry 99 98 Intake & Output 08/24/17 08/25/17 08/25/17 18:59 06:59 18:59 Intake Total 2600 / 2600 4145 / 4145 Output Total 470 / 470 460 / 460 Balance 2130 / 2130 3685 / 3685 Weight 96.162 kg Intake: IV 0 / 0 1545 / 1545 Vancomycin Inj 1,500 MG In NS 0 / 0 1030 / 1030 Inj 500 ML @ 257.5 mls/hr IV. SIG Q8H [facility] Rx#:[id number] Oral 1000 / 1000 1000 / 1000 Anesthesia Amount 1600 / 1600 1600 / 1600 Output: Urine 300 / 300 300 / 300 Estimated Blood Loss 150 / 150 150 / 150 Wound Drainage # 1 Back Other: # Voids 5 5 3 Date of Last Bowel Movement 08/24/17 08/24/17 08/25/17 # Bowel Movements 2 2 1 Narrative: GENERAL: NAD, A&Ox3 HEAD: Normocephalic. NECK: Supple, trachea midline. No lymphadenopathy. EYES: No scleral icterus. No injection or drainage. CARDIOVASCULAR: Regular rate and rhythm without murmurs, gallops, or rubs. RESPIRATORY: Breath sounds equal bilaterally. No accessory muscle use. GASTROINTESTINAL: Abdomen soft, non-tender, nondistended. MUSCULOSKELETAL: No cyanosis, or edema. Back brace is in place. SKIN: Warm and dry. NEURO: No focal neurological deficits. Results - Labs CBC & Chem 7: 08/23/17 09:29 08/23/17 09:29 Laboratory Results - last 24 hr 08/24/17 08/25/17 15:36 05:20 ESR 73 H Urine Opiates Screen Neg Ur Barbiturates Screen Neg Ur Amphetamines Screen Neg U Benzodiazepines Scrn Neg Urine Cocaine Screen Neg U Cannabinoids Screen Neg Microbiology 08/20/17 16:10 Blood - Peripheral Aerobic Blood Culture - Final No growth in 5 days 08/20/17 16:10 Blood - Peripheral Anaerobic Blood Culture - Final No growth in 5 days 08/20/17 16:15 Blood - Peripheral Aerobic Blood Culture - Final No growth in 5 days 08/20/17 16:15 Blood - Peripheral Anaerobic Blood Culture - Final No growth in 5 days 08/21/17 20:53 Tissue - Back Gram Stain - Final 08/21/17 20:53 Tissue - Back Wound Culture - Final No growth in 72 hours (aerobically and anaerobically ) 08/21/17 20:53 Abscess - Back Gram Stain - Final 08/21/17 20:53 Abscess - Back Wound Culture - Final No growth in 72 hours (aerobically and anaerobically ) - Procedures L2-3 decompresive laminectomy, evacuation of epidural abscess, 08/21/17 Assessment and Plan - Plan 32-year-old male admitted with an epidural abscess from noncompliance with outpatient antibiotic treatments for discitis, with history of IV drug abuse. S/P L2-3 decompresive laminectomy, evacuation of epidural abscess, 08/21/17, Dr. Christine Acute Epidural Abscess Continue IV vancomycin Await final ID recommendations Patient cleared by neurosurgery for discharge Continue pain treatments as needed IV drug abuse Cessation recommended [place] act Lifted by Psychiatry DVT prophylaxis SCDs Discharge planning Cleared by neurosurgery Await ID clearance
[2017-08-25] MEDS ORDERED: ceFAZolin 2 GM Premix Inj 2 GM/50 ML PIGGYBACK IV.SIG SCH (21:00)
[2017-08-25] MEDS ORDERED: Vancomycin Inj 1,750 MG in Sodium Chlor 0.9% Inj 500 ML IV.SIG SCH (21:00)
[2017-08-26] MEDS ORDERED: Pharmacy Ordered Lab Info OTHER ONE (20:45)
--- NOTE | 2017-11-07 18:49 | P.DS ---
Date of admission: 08/20/17 21:10 Primary care physician: No Primary Care Physician Brief History from admission: 32-year-old male with a past medical history significant for IV drug abuse presents to the emergency department under [place] act. According to the patient , his girlfriend called to have him [place]olt[place] acted after they had been up for a significant amount of time doing drugs. The patient tested positive for opiates and methamphetamine. He complained of lower back pain and was found to have a posterior epidural abscess at the L2-L3 level. Per patient report, he was previously treated for bacteremia and a epidural "cyst" in [place] at [facility]. He reports a 10 day total hospitalization with vancomycin 6 days which was then switched to Ancef. He reports his most recent blood cultures were negative. He left AGAINST MEDICAL ADVICE. The patient denies any recent fevers or chills. Endorses low back pain. Denies any chest pain or shortness of breath. No abdominal pain. No nausea/vomiting/ diarrhea. No new splinter hemorrhages or lesions. DS: Summary Hospital Course: 32-year-old male with past medical history significant for IV drug abuse and hepatitis C presents to the emergency department as a transfer from an outside hospital for the evaluation of epidural abscess with concern for osteomyelitis. The patient was recently treated at [facility] [place] for an epidural abscess, underwent surgery with Dr. Christine, was placed on IV antibiotics and then left AGAINST MEDICAL ADVICE. The patient reports he was in his home town where he went to the hospital to have his sutures out when there was concern that he may have an infection in the region. There is surrounding erythema and he reports significant lower back pain that has not improved from the preoperative period. The patient denies any chest pain or shortness of breath. No fevers or chills. No abdominal pain. No nausea/vomiting/diarrhea. No loss of bowel or bladder function. No lateralizing signs/symptoms. No lower extremity weakness or footdrop. - Time Spent with Patient Total time spent providing and/or coordinating discharge services: Less than 30 minutes - Quality: VTE Deep Vein Thrombosis/Pulmonary Embolism Present on Admission: No Results Procedures completed during hospitalization: L2-3 decompresive laminectomy, evacuation of epidural abscess, 08/21/17 - Impressions ITS Impressions Lumbar Spine MRI 08/20/17 14:58 CONCLUSION: 1. Posterior epidural abscess. This is at the L2-L3 level. This left the inflammatory change appears to be centered around the left L2-3 facet joint with extension in the posterior epidural space and the posterior paraspinous soft tissues. The abscess in the posterior epidural space measures approximately 1.6 cm in diameter. There is a 1.2 x 0.8 x 0.6 cm small abscess in the posterior left paraspinous soft tissues. 2. Mild disc protrusion at the left lateral recess and left neural foraminal region causing narrowing of the left neural foramina at the L4-L5 level. Thoracic Spine MRI 08/20/17 14:58 CONCLUSION: 1. No areas of discitis or osteomyelitis are seen. 2. Mild disc changes at the mid thoracic spine as described above. Lumbar Spine X-Ray 08/21/17 00:00 CONCLUSION: Pointer is at L4. Discharge Plan - Discharge Disposition Patient Disposition: Against Medical Advice - Discharge Condition Condition: Stable - Discharge Order Discharge Orders: AMA Discharge (Routine); Ordered 08/25/17 Ordered By: Clemencia Dunn Neurosurgery Clear for Discharge (Routine); Ordered 08/24/17 Ordered By: Yadira Szymanski - Physicians Team Primary Care Provider: Primary Care Adrii,Shruti Attending Provider: Rafael Saldaña Other Providers: Jacek Castro MD ; Milton Christine MD ; Dhaval Amos MD
== END 2017-08-25 23:03 | disposition left against medical advice (07) ==
LOC: NEPD 14:36 → NEDA 21:10 → NEPGCP 08-21 00:43 → N05 08-21 18:18 → N07 08-21 19:00 → N05 08-21 22:23
PROVIDERS: ADMIT Hospitalist; ATTEND Hospitalist

== ENCOUNTER 2017-09-03 17:57 | Inpatient (IN) ==
[2017-09-03] MEDS ORDERED: ceFAZolin 2 GM Premix Inj 2 GM/50 ML PIGGYBACK IV.SIG ONE (18:56)
[2017-09-03] MEDS ORDERED: Vancomycin Inj 1 GM/200 ML PIGGYBACK IV.SIG SCH (19:00)
--- NOTE | 2017-09-03 19:36 | ED ---
HPI General Chief complaint: Medical Clearance Stated complaint: Transfer from [facility] / Medical Time Seen by Provider: 09/03/17 18:42 Source: patient, EMS and old records reviewed Mode of arrival: EMS Limitations: no limitations History of Present Illness HPI narrative: 32-year-old male the presents to the ED for evaluation of epidural abscess. Patient is a transfer from [facility]. Patient was recently admitted last week for evaluation of an epidural abscess. Patient had incision and drainage by Dr. Christine here as well as a laminectomy. Patient was supposed to be in antibiotics and apparently before being properly treated he left AMA for unclear reasons. Patient continued to have pain and got evaluated at the above-mentioned hospital where they found out that he still has epidural abscess and he continues to have the infection. They paged Dr. Christine who agreed to transfer to this hospital for further evaluation. Patient was sent here for evaluation. Patient denies any IV drug abuse recently but he does have a history of this in the past. Of note patient was evaluated last time as of Zoltan foy and per the previous provider note from the patient's previous admission he apparently had already left AMA from another institution with the same diagnosis. Patient states that currently his pain is 7 out of 10. He is able to ambulate with no issues. Denies any numbness, tendon, weakness. He comes here from paperwork from the hospital. Related Data Home Medications Medication Instructions Recorded Confirmed No Known Home Medications 08/20/17 09/03/17 Allergies Allergy/AdvReac Type Severity Reaction Status Date / Time piperacillin [From Zosyn] Allergy unknown Verified 09/03/17 18:43 tazobactam [From Zosyn] Allergy unknown Verified 09/03/17 18:43 Review of Systems ROS Unobtainable All other systems reviewed negative except as stated in HPI [facility] Medical History Medical History Hepatitis C (Acute) IV drug abuse (Acute) Surgical History Surgical History History of appendectomy (Acute) Family History Family History Other Diabetes Social History Social History Substance History: Active Abuse Second Hand Smoke Exposure: No Smoking Status: Current every day smoker Tobacco Type: Cigarettes How Often Do You Have a Drink Containing Alcohol: 2 to 4 times a month Recent Travel in [facility] within the Last 8 Weeks: No Recent Out of Country Travel within the Last 8 Weeks: No Immunization History Tetanus Immunization: <5 Years Hx Influenza Vaccine This Season: No Exam Narrative Exam Narrative: GENERAL: Well-appearing SKIN: Focused skin assessment warm/dry. Patient has a surgical site with sutures noted on the lumbar spine. Some erythema noted around the area of the skin. Slightly tender to touch in this area. HEAD: Atraumatic. Normocephalic. EYES: Pupils equal and round. No scleral icterus. No injection or drainage. ENT: No nasal bleeding or discharge. Mucous membranes pink and moist. NECK: Trachea midline. No JVD. CARDIOVASCULAR: Regular rate and rhythm. No murmur appreciated. RESPIRATORY: No accessory muscle use. Clear to auscultation. Breath sounds equal bilaterally. GASTROINTESTINAL: Abdomen soft, non-tender, nondistended. Hepatic and splenic margins not palpable. MUSCULOSKELETAL: No obvious deformities. No clubbing. No cyanosis. No edema. NEUROLOGICAL: Awake and alert. No obvious cranial nerve deficits. Motor grossly within normal limits. Normal speech. PSYCHIATRIC: Appropriate mood and affect; insight and judgment normal. Course Initial Documented Vital Signs Temperature 98.1 F 09/03/17 18:38 Pulse Rate 86 09/03/17 18:38 Respiratory Rate 14 09/03/17 18:38 Blood Pressure 152/84 H 09/03/17 18:38 Pulse Oximetry 99 09/03/17 18:38 Last Documented Vital Signs Temperature 98.1 F 09/03/17 18:38 Pulse Rate 73 09/03/17 19:41 Respiratory Rate 18 09/03/17 19:41 Blood Pressure 117/67 09/03/17 19:41 Pulse Oximetry 98 09/03/17 19:41 Medical Decision Making NICK Attestation NICK supervised visit: Yes Attestation: I, Dr. Crooks, have reviewed the advance practice practitioner's documentation and am in agreement, met with the patient face to face, made the diagnosis, and the medical decision making was done by me. The patient was initially evaluated by denise Tran PA. Please see their complete history and physical. *My assessment and Findings: The patient presents with history of epidural abscess status post laminectomy by Dr. Christine who apparently left the hospital AGAINST MEDICAL ADVICE approximately a week ago. Patient presented at another facility with reported back pain and underwent an MRI that showed a heterogeneous collection along the surgical site of the left L3 laminectomy that is concerning for an abscess. The patient was accepted and transferred to this facility by Dr. Christine for continued care. The patient on examination has no reported numbness or tingling to his extremities. He denies having any weakness of his extremities. He reports having back pain. The patient's back examination reveals sutures to be in place along the lumbar spine. There is some swelling noted, no active drainage. There is tenderness on palpation surrounding the sutured wound. No drainage is able to be expressed. The patient has full strength that is 5/5 in all 4 extremities with intact sensation over all dermatomes. He denies having any fevers, chills, or night sweats. He denies having any loss of bowel or bladder control. The patient reports that he does use IV drugs. He usually uses heroin. He last used heroin a few days ago. During the course of the patient's emergency department visit, the patient had IV access obtained. The patient was placed on a delivery route driver with oximetry and frequent blood pressure monitoring. The patient's records from the other facility were reviewed. The patient's case was discussed with Dr. Christine and Dr. De La Vega for admission. The patient's results were discussed with the patient, including the plan of care. I explained that further testing and/ or monitoring is indicated based on the patient's history, examination, and/ or laboratory findings. Therefore, I recommended admission for additional evaluation. The patient expressed understanding and was agreeable with this plan. The patient was admitted to the hospital in guarded condition and sent to a bed under the care of [facility] service. [facility] Narrative Medical decision making narrative: 32-year-old male the presents to the ED for evaluation of epidural abscess. Patient was properly examined and was found to have signs and symptoms consistent with epidural abscess. I spoke with Dr. Christine over the phone who wants the patient admitted to medicine, ID consult, consult to him and started him on IV antibiotics again. Patient was told this and agrees with plan. Patient will be admitted. I reviewed the patient's blood work and imaging from his previous admission as well as the one done at the other hospital. They did a chest x-ray that was negative for acute disease at the other hospital. His CBC was unremarkable with no sign of WBC elevation. He is MRI was done and show heterogeneous collection along the surgical site of the left L3 laminectomy this is concerning for an abscess. This causes mass- effect in the posterior thecal sac and moderate central canal narrowing. Abnormal bone marrow signal in the left L5-L3 facet concerning for osteomyelitis. Bone marrow signal normality is identified in the left L2 pedicle concerning for additional site of osteomyelitis. Abnormal signal along the left L2-3 facet concerning for septic arthritis. Patient was initially put here on Vanco and ancef. He was started on this again. Case discussed with Dr. De La Vega who agrees to admission to her service. I personally put a consult orders to neurosurgery as well as to infectious disease. Differential Diagnosis Differential Diagnosis: Epidural abscess versus osteomyelitis versus cellulitis Medical Records Medical records reviewed: Yes I reviewed the patient's medical records. Discharge Plan Discharge Disposition Patient Disposition: 32 Still Patient Discharge Details Diagnosis: Epidural abscess Physicians Team ED Provider: Jyoti Crooks ED Midlevel Provider: Marc Coates Primary Care Provider: Primary Care Shruti Dangelo Attending Provider: Manuela De La Vega Status ED Status: Admitted Patient
[2017-09-03] MEDS ORDERED: Acetaminophen 325 MG Tablet PO PRN (21:29)
[2017-09-03] MEDS ORDERED: Bisacodyl 10 MG Supp RECTAL PRN (21:29)
[2017-09-03] MEDS ORDERED: Vancomycin Consult Pharmacy 1 EACH OTHER SCH (21:31)
--- NOTE | 2017-09-03 21:59 | P.HP ---
History of Present Illness Service: [facility] Primary Care Physician: No Primary Care Physician History of Present Illness: 32-year-old male with past medical history significant for IV drug abuse and hepatitis C presents to the emergency department as a transfer from an outside hospital for the evaluation of epidural abscess with concern for osteomyelitis. The patient was recently treated at [facility] for an epidural abscess, underwent surgery with Dr. Christine, was placed on IV antibiotics and then left AGAINST MEDICAL ADVICE. The patient reports he was in his home town where he went to the hospital to have his sutures out when there was concern that he may have an infection in the region. There is surrounding erythema and he reports significant lower back pain that has not improved from the preoperative period. The patient denies any chest pain or shortness of breath. No fevers or chills. No abdominal pain. No nausea/vomiting/diarrhea. No loss of bowel or bladder function. No lateralizing signs/symptoms. No lower extremity weakness or footdrop. Inpatient Certification: I certify that the inpatient services were ordered in accordance with Medicare regulations governing the order. This includes certification that hospital inpatient services are reasonable and necessary and in the case of services not specified as inpatient-only under 42 CFR 419.22(n), that they are appropriately provided as inpatient services in accordance to with the 2-midnight benchmark under 43 CFR 412.3(e) Estimated Total Length of Stay (Days): 2 Plans for Post Hospital Care: Home Review of Systems All other systems reviewed negative except as stated in HPI [facility] - History History Provided By: Patient - Medical History Medical History: Medical History (Last Reviewed 09/03/17 @ 19:33 by ROSY Young) Hepatitis C IV drug abuse - Surgical History Surgical History: Surgical History (Last Reviewed 09/03/17 @ 19:33 by ROSY Young) History of appendectomy - Family History Family History: Family History (Last Reviewed 09/03/17 @ 20:21 by Jyoti Martinez) Other Diabetes - Tobacco History Second Hand Smoke Exposure: No Tobacco Use In Past 30 Days: Yes Smoking Status: Current every day smoker Tobacco Type: Cigarettes - Alcohol History How Often Do You Have a Drink Containing Alcohol: 2 to 4 times a month - Substance Use History Substance History: Active Abuse - Travel History Recent Travel in the [place] Within the Last 8 Weeks: No Recent Travel Out of the Country Within the Last 8 Weeks: No - Immunization History Tetanus Immunization: <5 Years Hx Influenza Vaccine This Season: No Medications and Allergies Active Medications: Active Medications Acetaminophen (Tylenol) 650 mg PO Q4H PRN PRN Reason: Temp > 100.4 Al Hydroxide/Mg Hydroxide (Milk Of Magnesia Liq) 30 ml PO Q12H PRN PRN Reason: Mild Constipation Bisacodyl (Dulcolax Supp) 10 mg RECTAL DAILY PRN PRN Reason: SEVERE CONSITIPATION Vancomycin/Sodium Chloride (Vancomycin Inj) 1 gm in 200 mls @ 200 mls/hr IV.SIG LIQUOR RUNNER [facility] Cefazolin Sodium 1,000 mg/ (Sodium Chloride) 100 mls @ 200 mls/hr IV.SIG Q8H [facility] Sodium Chloride (Ns Inj) 1,000 mls @ 100 mls/hr IV.CONT .Q10H [facility] Pharmacy Profile Note (Vancomycin Consult Pharmacy) 0 mls @ 0 mls/hr OTHER UNSCH [facility] Lactulose (Lactulose Liq) 30 ml PO DAILY PRN PRN Reason: SEVERE CONSITIPATION Ondansetron HCl (Zofran Odt) 4 mg PO Q6H PRN PRN Reason: NAUSEA OR VOMITING Senna/Docusate Sodium (Winter-Colace) 1 tab PO BID [facility] Sennosides (Senokot) 17.2 mg PO Q12H PRN PRN Reason: Moderate Constipation Temazepam (Restoril) 15 mg PO HS PRN PRN Reason: INSOMNIA Allergies Allergy/AdvReac Type Severity Reaction Status Date / Time piperacillin [From Zosyn] Allergy unknown Verified 09/03/17 18:43 tazobactam [From Zosyn] Allergy unknown Verified 09/03/17 18:43 Home Medications Medication Instructions Recorded Confirmed Type No Known Home Medications 08/20/17 09/03/17 History Exam Vital signs: Vital Signs 09/03/17 18:38 09/03/17 19:41 Temperature 98.1 F Pulse Rate 86 73 Respiratory Rate 14 18 Blood Pressure 152/84 H 117/67 Pulse Oximetry 99 98 Intake & Output 09/03/17 09/03/17 09/04/17 06:59 18:59 06:59 Weight 90.718 kg Narrative: Gen.: No acute distress Head: Normocephalic. Atraumatic. EENT: Pupils equal round and reactive to light. Nose without drainage. Airway intact. Throat without injection. Cardiovascular: Regular rate and rhythm. No murmurs, rubs or gallops. Respiratory: Lungs clear to auscultation bilaterally. No wheezes or rhonchi. Abdomen: Soft, nontender, nondistended. No peritoneal signs. Musculoskeletal: No gross deformities. No edema. Skin: Mild erythema surrounding lower back incision. Incision without drainage and clean/dry/intact. Neuro: Sensory and motor grossly intact. Cranial nerves II through XII grossly intact. 5/5 strength throughout. Psych: Appropriate mood and affect Caprini VTE Risk Assessment Caprini VTE Risk Assessment: No/Low Risk (score <= 1) Caprini Risk Assessment Model: Point Value = 1 Point Value = 2 Point Value = 3 Point Value = 5 Age 41-60 Minor surgery BMI > 25 kg/m2 Swollen legs Varicose veins or History of unexplained or recurrent spontaneous Oral contraceptives or hormone replacement Sepsis (< 1 month) Serious lung disease, including pneumonia (< 1 month) Abnormal pulmonary function Acute myocardial infarction Congestive heart failure (< 1 month) History of inflammatory bowel disease Medical patient at bed rest Age 61-74 Arthroscopic surgery Major open surgery (> 45 min) Laparoscopic surgery (> 45 min) Malignancy Confined to bed (> 72 hours) Immobilizing plaster cast Central venous access Age >= 75 History of VTE Family history of VTE Factor V Leiden Prothrombin [id number] Lupus anticoagulant Anticardiolipin antibodies Elevated serum homocysteine Heparin-induced thrombocytopenia Other congenital or acquired thrombophilia Stroke (< 1 month) Elective arthroplasty Hip, pelvis, or leg fracture Acute spinal cord injury (< 1 month) Prophylaxis Regimen: Total Risk Factor Score Risk Level Prophylaxis Regimen 0-1 Low Early ambulation 2 Moderate Order ONE of the following: *Sequential Compression Device (SCD) *Heparin 5000 units SQ BID 3-4 Higher Order ONE of the following medications: *Heparin 5000 units SQ TID *Enoxaparin/Lovenox 40 mg SQ daily (WT < 150 kg, CrCl > 30 mL/min) *Enoxaparin/Lovenox 30 mg SQ daily (WT < 150 kg, CrCl > 10-29 mL/min) *Enoxaparin/Lovenox 30 mg SQ BID (WT < 150 kg, CrCl > 30 mL/min) AND/OR *Sequential Compression Device (SCD) 5 or more Highest Order ONE of the following medications: *Heparin 5000 units SQ TID (Preferred with Epidurals) *Enoxaparin/Lovenox 40 mg SQ daily (WT < 150 kg, CrCl > 30 mL/min) *Enoxaparin/Lovenox 30 mg SQ daily (WT < 150 kg, CrCl > 10-29 mL/min) *Enoxaparin/Lovenox 30 mg SQ BID (WT < 150 kg, CrCl > 30 mL/min) AND *Sequential Compression Device (SCD) Assessment and Plan - Plan Assessment/plan: 1. Epidural abscess MRI of the lumbar spine significant for heterogeneous collection along the surgical site of the left L3 laminectomy that is concerning for abscess. Abnormal bone marrow signal in the left L2-L3 facet concerning for osteomyelitis. Bone marrow signal abnormality also identified in the left L2 pedicle concerning for osteomyelitis. Abnormal signal along the L2-L3 facet concerning for septic arthritis. Vancomycin and Ancef Infectious disease consulted, appreciate recommendations Neurosurgery consulted, appreciate recommendations 2. IV drug abuse Patient states his last use of IV heroin was approximately 2 days ago Cessation counseling provided 3. Hepatitis C Outpatient follow-up FEN N.p.o. Electrolytes: Monitor and replete as needed NS at 100 cc/hour
[2017-09-03] MEDS: Sod Chloride 0.9% Inj 1,000 ML IV.CONT SCH (22:54)
[2017-09-04] MEDS ORDERED: Vancomycin Inj 1 GM/200 ML PIGGYBACK IV.SIG ONE (03:30)
[2017-09-04 07:54] LABS: Baso % (Auto) 0.4 % (0.0-2.0); Eos # (Auto) 0.1 th/mm3 (0.0-0.4); Hematocrit 35.5 % (39.0-51.0); Hemoglobin 11.9 gm/dL (13.0-17.0); Lymph # (Auto) 1.3 th/mm3 (1.0-4.8); Lymph % (Auto) 23.3 % (9.0-44.0); Mean Corpuscular HGB Conc 33.4 % (32.0-36.0); Mean Corpuscular Hemoglobin 29.2 pg (27.0-34.0); Mean Corpuscular Volume 87.4 fL (80.0-100.0); Mean Platelet Volume 10.2 fL (7.0-11.0); Mono # (Auto) 0.5 th/mm3 (0.0-0.9); Mono % (Auto) 9.6 % (0.0-8.0); Neut # (Auto) 3.6 th/mm3 (1.8-7.7); Neut % (Auto) 64.7 % (16.0-70.0); Platelet Count 223 th/mm3 (150-450); Red Blood Count 4.06 mil/mm3 (4.50-5.90); Red Cell Distribution Width 14.1 % (11.6-17.2); White Blood Count 5.5 th/mm3 (4.0-11.0)
[2017-09-04 08:22] LABS: Albumin 3.4 g/dL (3.4-5.0); Anion Gap 8 meq/L (5-15); Aspartate Aminotransferase 61 U/L (15-37); Blood Urea Nitrogen 5 mg/dL (7-18); Calcium 9.2 mg/dL (8.5-10.1); Carbon Dioxide 27.2 meq/L (21.0-32.0); Chloride 106 meq/L (98-107); Glomerular Filtration Rate Greater Than 89 mL/min (>89); Glucose,Random 99 mg/dL (74-106); Potassium 3.4 meq/L (3.5-5.1); Sodium 141 meq/L (136-145)
[2017-09-04 08:24] LABS: Alanine Aminotransferase 121 U/L (12-78)
[2017-09-04 08:26] LABS: Alkaline Phosphatase 101 U/L (45-117); Total Protein 8.2 g/dL (6.4-8.2)
--- NOTE | 2017-09-04 08:54 | P.PN ---
Subjective Interval history: Follow up for epidural abscess. The patient reports continued severe 10/10 low back pain with associated edema. Denies any lower extremity numbness/tingling or weakness. Denies fevers/chills. He has no other medical complaints at this time. Physical Exam Vital signs: Vital Signs 09/03/17 18:38 09/03/17 19:41 09/03/17 22:54 Temperature 98.1 F Pulse Rate 86 73 80 Respiratory Rate 14 18 16 Blood Pressure 152/84 H 117/67 117/60 Pulse Oximetry 99 98 98 09/04/17 00:00 09/04/17 03:52 09/04/17 08:00 Temperature 98.7 F 98.7 F 98.2 F Pulse Rate 99 H 99 H 90 Respiratory Rate 16 16 16 Blood Pressure 149/85 H 129/83 137/95 H Pulse Oximetry 99 99 100 Intake & Output 09/03/17 09/04/17 09/04/17 18:59 06:59 18:59 Intake Total 350 / 350 Balance 350 / 350 Weight 90.718 kg Intake: IV 350 / 350 Vancomycin Inj 1 gm In 200 ml @ 200 / 200 200 mls/hr IV.SIG ONCE ONE Rx# :[id number] Ancef 2 GM Premix Inj 2 gm In 50 / 50 50 ml @ 100 mls/hr IV.SIG ONCE ONE Rx#:[id number] Ancef Inj 1,000 MG In NS Inj 100 / 100 100 ML @ 200 mls/hr IV.SIG Q8H [facility] Rx#:[id number] Other: # Voids 4 Date of Last Bowel Movement 09/03/17 Narrative: GENERAL: Well-nourished, well-developed young male patient in [facility]. Ambulating the hallways. SKIN: Warm and dry. No rash. HEENT: Normocephalic. Atraumatic. Pupils equal and round. Mucous membranes pink and moist. NECK: Supple. Trachea midline. CARDIOVASCULAR: Regular rate and rhythm. No murmur appreciated. RESPIRATORY: No accessory muscle use. Clear to auscultation. Breath sounds equal bilaterally. GASTROINTESTINAL: Abdomen soft, non-tender, nondistended. Normoactive bowel sounds x4. MUSCULOSKELETAL: No obvious deformities. Extremities without clubbing, cyanosis , or edema. Proximal lumbar spine at L2 area with prior surgical site, surrounding edema and warmth, tender to palpation, no active drainage. NEUROLOGICAL: Awake and alert. No obvious cranial nerve deficits. Motor grossly within normal limits. 5/5 strength of bilateral lower extremities. Normal speech. PSYCHIATRIC: Appropriate mood and affect; insight and judgment normal. Results - Labs CBC & Chem 7: 09/04/17 06:14 09/04/17 06:14 Laboratory Results - last 24 hr 09/04/17 09/04/17 06:14 06:14 WBC 5.5 RBC 4.06 L Hgb 11.9 L Hct 35.5 L MCV 87.4 MCH 29.2 MCHC 33.4 RDW 14.1 Plt Count 223 MPV 10.2 Neut % (Auto) 64.7 Lymph % (Auto) 23.3 [place] % (Auto) 9.6 H Eos % (Auto) 2.0 Baso % (Auto) 0.4 Neut # (Auto) 3.6 Lymph # (Auto) 1.3 [place] # (Auto) 0.5 Eos # (Auto) 0.1 Baso # (Auto) 0.0 WBC Differential . Differential Comment Auto diff final Sodium 141 Potassium 3.4 L Chloride 106 Carbon Dioxide 27.2 Anion Gap 8 BUN 5 L Creatinine 0.85 Estimated GFR Greater than 89 Random Glucose 99 Calcium 9.2 Total Bilirubin 0.5 AST 61 H ALT 121 H Alkaline Phosphatase 101 Total Protein 8.2 Albumin 3.4 Assessment and Plan - Plan 32-year-old male with hx of IV drug abuse and hepatitis C presents to the ED as a transfer from an outside hospital for the evaluation of epidural abscess with concern for osteomyelitis. The patient was recently treated at [facility] for an epidural abscess, underwent surgery with Dr. Christine, was placed on IV antibiotics and then left AGAINST MEDICAL ADVICE. The patient reports he was in his home town where he went to the hospital to have his sutures out when there was concern that he may have an infection in the region. Epidural abscess: MRI of the lumbar spine significant for heterogeneous collection along the surgical site of the left L3 laminectomy that is concerning for abscess. Abnormal bone marrow signal in the left L2-L3 facet concerning for osteomyelitis. Bone marrow signal abnormality also identified in the left L2 pedicle concerning for osteomyelitis. Abnormal signal along the L2-L3 facet concerning for septic arthritis. -Continue antibiotics with IV Vancomycin and Ancef -Infectious disease consulted, appreciate recommendations -Neurosurgery consulted, appreciate recommendations, no surgical intervention for now -Pain control with [place] prn, added IV toradol 15mg q6h IV drug abuse: ongoing -Patient states his last use of IV heroin was approximately 2 days ago -Cessation counseling provided Hepatitis C: chronic -Outpatient follow-up DVT Prophylaxis: teds/SCDs; avoid chemoprophylaxis for now incase surgery is indicated
[2017-09-04] MEDS: Senna/Docusate Sodium 8.6/50 MG Tablet PO SCH ×2 (09:34→21:58)
[2017-09-04] MEDS: Sod Chloride 0.9% Inj 1,000 ML IV.CONT SCH ×2 (09:34→16:52)
[2017-09-04] MEDS: Vancomycin Inj 1,500 MG in Sodium Chlor 0.9% Inj 500 ML IV.SIG SCH ×2 (10:40→18:32)
--- NOTE | 2017-09-04 13:04 | MB ---
cc: Jacek Castro MD DATE: 09/04/2017 DATE OF CONSULTATION: 09/04/2017 REQUESTING PHYSICIAN: Manuela De La Vega MD REASON: Epidural abscess. HISTORY OF PRESENT ILLNESS: This is a 32-year-old white male who was being treated in this hospital for epidural abscess of the lumbar spine. The patient left the hospital against medical advice. He had undergone surgery during the hospitalization. This consisted of a L2-3 decompressive laminectomy and evacuation of an epidural abscess. The patient had been admitted to the hospital in [place], [place], prior to his last hospitalization here at [facility]. He was being treated for bacteremia due to Staphylococcus aureus, MSSA. He had left the hospital against medical advice also at that time and showed up at [facility], where he was evaluated and underwent the decompressive laminectomy. The cultures from the surgery at [facility] had no organisms. The patient developed pain and noted that there was some swelling at the lower back a few days ago. He went to [facility] in [place] and was seen in the emergency room. He states that he went there to have the stitches removed. They were concerned about the appearance of the incision and did not remove the sutures. He was referred back to [facility] and is currently being evaluated. The area of the incision at the back has a slight bulge and is erythematous. There is no drainage visible. He has tenderness on palpation of that location. He denies fever, chills, nausea, vomiting or other symptoms besides pain. His white count is normal at 5.5. He is afebrile. PAST MEDICAL HISTORY: IV drug abuse. PAST SURGICAL HISTORY: History of appendectomy. ALLERGIES: PIPERACILLIN/TAZOBACTAM. MEDICATIONS: 1. Tylenol. 2. Cefazolin. 3. Lactulose. 4. Vancomycin. 5. Dulcolax. FAMILY HISTORY: Noncontributory. REVIEW OF SYSTEMS: All systems have been reviewed and are negative except for that mentioned in the History Of Present Illness, namely back pain. PHYSICAL EXAMINATION: GENERAL: This is a well-developed, slender man in no acute distress. He is awake and alert and oriented. VITAL SIGNS: Temperature 98.2, BP 137/95, respirations 16, heart rate 98. HEENT: Head is atraumatic. Extraocular movements grossly intact. Pupils reactive to light. No icterus. Oropharynx: Moist mucosa. No visible lesions. NECK: Supple without adenopathy. LUNGS: Clear breath sounds. HEART: Regular S1, S2. ABDOMEN: Bowel sounds present. Soft, no tenderness appreciated. BACK: There is erythema along the surgical incision and a bulge at the surface with tenderness on palpation at that location. RECTAL: Not performed. EXTREMITIES: No clubbing, cyanosis or edema. SKIN: No diffuse rash. NEUROLOGIC: No gross focal finding. PSYCHIATRIC: The patient is calm and cooperative. LABORATORY DATA: WBC 5.5, platelets 223, hemoglobin 11.9. Creatinine 0.85, BUN 5, sodium 141. AST 61, ALT 121. IMPRESSION: 1. Cellulitis with probable abscess at the area of the surgical incision in the lower back. The patient is status post lumbar laminectomy for evacuation of epidural abscess. 2. Noncompliance with medication and treatment. The patient signed out against medical advice. He was due to receive 6 weeks of intravenous antibiotics prior to signing out against medical advice. He received approximately 1 week of treatment. 3. IV drug abuse. RECOMMENDATIONS: 1. Continue vancomycin. 2. Continue cefazolin. 3. Send culture of fluid if the fluid at the surgical area is drained. 4. Monitor results of the culture to determine of the antibiotic needs to be changed. 5. The patient was notified that he needs to be compliant with IV antibiotics and that he needs 6 weeks to 8 weeks of IV antibiotic treatment, otherwise he risks severe complications from this infection involving the lumbar spine. Thank you for this consultation. The patient's progress will be followed and further recommendations will be made upon followup if necessary. MD SUKUMAR Hernadez/MARGO , 12:32 PM , 01:03 PM
--- NOTE | 2017-09-04 15:37 | P.PNNS ---
Subjective Interval history: Mr. Gabriel is a 32 y/o male with history of IV drug use, lumbar epidural abscess. He underwent a L2-3 laminectomy with evacuation of epidural abscess on 08/22/17 He had left AMA without antibiotics and returned to ED at [facility] yesterday with complaints of low back pain without radiculopathy. He was transferred to [facility]. He denies wound drainage, however his surgical site has had increased pain, swelling and erythema. <Yadira Szymanski - Last Filed: 09/05/17 15:22> Interval history: The patient is noncompliant. He left the hospital AGAINST MEDICAL ADVICE. After leaving the hospital I suspect he has used drugs. Unfortunately he has not received his antibiotics or wound care for several days <Milton Christine - Last Filed: 09/07/17 19:05> Physical Exam Vital signs: Vital Signs 09/03/17 18:38 09/03/17 19:41 09/03/17 22:54 Temperature 98.1 F Pulse Rate 86 73 80 Respiratory Rate 14 18 16 Blood Pressure 152/84 H 117/67 117/60 Pulse Oximetry 99 98 98 09/04/17 00:00 09/04/17 03:52 09/04/17 08:00 Temperature 98.7 F 98.7 F 98.2 F Pulse Rate 99 H 99 H 90 Respiratory Rate 16 16 16 Blood Pressure 149/85 H 129/83 137/95 H Pulse Oximetry 99 99 100 09/04/17 12:00 Temperature 98.7 F Pulse Rate 94 H Respiratory Rate 16 Blood Pressure 136/87 Pulse Oximetry 100 Intake & Output 09/03/17 09/04/17 09/04/17 18:59 06:59 18:59 Intake Total 350 / 350 Balance 350 / 350 Weight 90.718 kg Intake: IV 350 / 350 Vancomycin Inj 1 gm In 200 ml @ 200 / 200 200 mls/hr IV.SIG ONCE ONE Rx# :[id number] Ancef 2 GM Premix Inj 2 gm In 50 / 50 50 ml @ 100 mls/hr IV.SIG ONCE ONE Rx#:[id number] Ancef Inj 1,000 MG In NS Inj 100 / 100 100 ML @ 200 mls/hr IV.SIG Q8H [facility] Rx#:[id number] Other: # Voids 4 Date of Last Bowel Movement 09/03/17 09/03/17 Narrative: Awake, alert. incision with sutures in place, there is round area of swelling, warmth erythema and tenderness around his incision site. currently no drainage seen. he is ambulating around the halls he moves his lower extremities with good strength <Yadira Szymanski - Last Filed: 09/05/17 15:22> Vital signs: Vital Signs 09/06/17 20:00 09/07/17 00:00 09/07/17 04:00 Temperature 98.6 F 98 F 97.7 F Pulse Rate 104 H 85 85 Respiratory Rate 18 18 18 Blood Pressure 146/94 H 142/92 H 136/90 Pulse Oximetry 99 100 99 09/07/17 08:00 09/07/17 12:00 09/07/17 16:00 Temperature 98.1 F 98.4 F 98.2 F Pulse Rate 83 88 97 H Respiratory Rate 17 17 17 Blood Pressure 144/95 H 139/92 H 143/87 H Pulse Oximetry 100 99 98 Intake & Output 09/07/17 09/07/17 09/08/17 06:59 18:59 06:59 Intake Total 1337.5 / 1337.5 2560 / 2560 Output Total 600 / 600 1000 / 1000 Balance 737.5 / 737.5 1560 / 1560 Weight 93.2 kg Intake: IV 617.5 / 617.5 1600 / 1600 Vancomycin Inj 1,750 MG In NS 517.5 / 517.5 1500 / 1500 Inj 500 ML @ 250 mls/hr IV.SIG Q8H [facility] Rx#:[id number] Ancef Inj 1,000 MG In NS Inj 100 / 100 100 / 100 100 ML @ 200 mls/hr IV.SIG Q8H [facility] Rx#:[id number] Oral 720 / 720 960 / 960 Output: Urine 600 / 600 1000 / 1000 Other: Date of Last Bowel Movement 09/06/17 09/07/17 # Bowel Movements 1 1 Narrative: The patient is alert, awake. Comfortable, in no acute distress. Speech is fluent. Cranial nerve examination: pupils to be equal, round and reactive to light. Extra-ocular movements are intact. Facial motor and sensory function are normal and symmetrical. Gross hearing appears intact. Sternocleidomastoid and trapezius muscles are symmetrical. Other cranial nerves are intact. Neck is soft and supple with a good range of motion without pain. Muscle strength is normal in all muscle groups of both upper and lower extremities. Sensory examination is intact to light touch and pin prick in both the upper and lower extremities. Deep tendon reflexes are symmetrical in both upper and lower extremities. There is a bilateral plantar flexion response. Cerebellar examination is unremarkable, without deficits. erythema and tenderness around his incision site. currently no drainage <Milton Christine - Last Filed: 09/07/17 19:05> Assessment and Plan - Plan Impression: 32 y/o male with IV drug use lumbar epidural abscess s/p L2-3 laminectomy with evacuation of epidural abscess 08/22/17 patient left AMA without antibiotic and returned to ED at [facility] with complaints of low back pain without radiculopathy noncompliance to medical treatment MRI Lumbar spine from [facility] reports: heterogeneous collection along the surgical site of the left L3 laminectomy that is concerning for abscess. Abnormal bone marrow signal in the left L2-L3 facet concerning for osteomyelitis. Bone marrow signal abnormality also identified in the left L2 pedicle concerning for osteomyelitis. Abnormal signal along the L2-L3 facet concerning for septic arthritis. Plan: Dr. Christine recommends to continue nonoperative management with antibiotics medical management dc lumbar sutures <Yadira Szymanski - Last Filed: 09/05/17 15:22> - Plan 32 y/o male with IV drug use This patient is noncompliant with treatment or recommendations He left the hospital AGAINST MEDICAL ADVICE and to stop the use of antibiotics I suspect he has been using drugs again I explained to that he is compromising his marilee. His noncompliance has jeopardized his chances of recovery, There is no indication for further surgery at this time Continue treatment with intravenous antibiotics I recommend that the patient does not get discharged until his antibiotic treatment is completed As he is at high risk for noncompliance and recurrent IV drug use The exam, history, and the medical decision-making described in the above note were completed with the assistance of the mid-level provider. I reviewed and agree with the findings presented. I attest that I had a [id number] encounter with the patient on the same day, and personally performed and documented my assessment and findings in the medical record. <Milton Christine - Last Filed: 09/07/17 19:05>
[2017-09-04] MEDS: Ketorolac Inj 30 MG/ML (IVP) Vial IV.PUSH SCH ×2 (17:38→23:52)
[2017-09-05] MEDS: Vancomycin Inj 1,500 MG in Sodium Chlor 0.9% Inj 500 ML IV.SIG SCH ×2 (03:52→11:48)
[2017-09-05] MEDS: Sod Chloride 0.9% Inj 1,000 ML IV.CONT SCH ×2 (04:26→17:11)
[2017-09-05] MEDS: Ketorolac Inj 30 MG/ML (IVP) Vial IV.PUSH SCH ×3 (05:59→18:10)
[2017-09-05] MEDS: Senna/Docusate Sodium 8.6/50 MG Tablet PO SCH ×2 (09:53→21:23)
--- NOTE | 2017-09-05 10:25 | P.PN ---
Subjective Interval history: Follow up for epidural abscess. The patient reports back pain and swelling has improved. Currently rates his pain at a 7/10. He is able to ambulate without difficulty. Denies any fevers/chills, chest pain, or shortness of breath. Physical Exam Vital signs: Vital Signs 09/04/17 12:00 09/04/17 15:53 09/04/17 19:55 Temperature 98.7 F 98.3 F 98.7 F Pulse Rate 94 H 105 H 90 Respiratory Rate 16 16 16 Blood Pressure 136/87 135/83 150/82 H Pulse Oximetry 100 99 98 09/05/17 00:00 09/05/17 04:00 09/05/17 08:00 Temperature 98.5 F 98.8 F 97.6 F Pulse Rate 93 H 105 H 77 Respiratory Rate 16 16 18 Blood Pressure 136/75 128/72 131/88 Pulse Oximetry 99 98 99 Intake & Output 09/04/17 09/05/17 09/05/17 18:59 06:59 18:59 Intake Total 615 / 615 1230 / 1230 Output Total 1000 / 1000 Balance -385 / -385 1230 / 1230 Intake: IV 615 / 615 1230 / 1230 Vancomycin Inj 1,500 MG In NS 515 / 515 1030 / 1030 Inj 500 ML @ 250 mls/hr IV.SIG Q8H [facility] Rx#:[id number] Ancef Inj 1,000 MG In NS Inj 100 / 100 200 / 200 100 ML @ 200 mls/hr IV.SIG Q8H [facility] Rx#:[id number] Output: Urine 1000 / 1000 Other: # Voids 6 Date of Last Bowel Movement 09/04/17 09/04/17 # Bowel Movements 1 Narrative: GENERAL: Well-nourished, well-developed young male patient in [facility]. Ambulating the hallways. SKIN: Warm and dry. No rash. HEENT: Normocephalic. Atraumatic. Mucous membranes pink and moist. CARDIOVASCULAR: Regular rate and rhythm. No murmur appreciated. RESPIRATORY: No accessory muscle use. Clear to auscultation. Breath sounds equal bilaterally. GASTROINTESTINAL: Abdomen soft, non-tender, nondistended. Normoactive bowel sounds x4. MUSCULOSKELETAL: No obvious deformities. Extremities without clubbing, cyanosis , or edema. Proximal lumbar spine at L2 area with prior surgical site, surrounding edema and warmth, tender to palpation, no active drainage, covered with dressing with scant drainage, overall improved today. NEUROLOGICAL: Awake and alert. No obvious cranial nerve deficits. Motor grossly within normal limits. 5/5 strength of bilateral lower extremities. Normal speech. PSYCHIATRIC: Appropriate mood and affect; insight and judgment normal. Results - Labs CBC & Chem 7: 09/04/17 06:14 09/04/17 06:14 Assessment and Plan - Plan 32-year-old male with hx of IV drug abuse and hepatitis C presents to the ED as a transfer from an outside hospital for the evaluation of epidural abscess with concern for osteomyelitis. The patient was recently [place] [facility] [place], underwent surgery with Dr. Christine, was placed on IV antibiotics and then left AGAINST MEDICAL ADVICE. The patient reports he was in his home town where he went to the hospital to have his sutures out when there was concern that he may have an infection in the region. Epidural abscess: MRI of the lumbar spine significant for heterogeneous collection along the surgical site of the left L3 laminectomy that is concerning for abscess. Abnormal bone marrow signal in the left L2-L3 facet concerning for osteomyelitis. Bone marrow signal abnormality also identified in the left L2 pedicle concerning for osteomyelitis. Abnormal signal along the L2-L3 facet concerning for septic arthritis. -Continue antibiotics with IV Vancomycin and Ancef -Infectious disease consulted, appreciate recommendations -Neurosurgery consulted, appreciate recommendations, no surgical intervention for now -Pain control with [place] prn, and IV toradol 15mg q6h IV drug abuse: ongoing -Patient states his last use of IV heroin was approximately 2 days ago -Cessation counseling provided Hepatitis C: chronic -Outpatient follow-up DVT Prophylaxis: teds/SCDs; avoid chemoprophylaxis for now incase surgery is indicated Discharge Planning: Discharge when cleared by neurosurgery and infectious disease.
[2017-09-05] MEDS ORDERED: Pharmacy Ordered Lab Info OTHER ONE (10:45)
[2017-09-05] MEDS: Vancomycin Inj 1,750 MG in Sodium Chlor 0.9% Inj 500 ML IV.SIG SCH (21:22)
[2017-09-05] MEDS: Temazepam 15 MG Capsule PO PRN (21:31)
[2017-09-06] MEDS: Sod Chloride 0.9% Inj 1,000 ML IV.CONT SCH ×3 (00:44→22:07)
[2017-09-06] MEDS: Ketorolac Inj 30 MG/ML (IVP) Vial IV.PUSH SCH ×4 (01:26→17:53)
[2017-09-06] MEDS: Vancomycin Inj 1,750 MG in Sodium Chlor 0.9% Inj 500 ML IV.SIG SCH ×3 (04:37→21:54)
[2017-09-06] MEDS: Senna/Docusate Sodium 8.6/50 MG Tablet PO SCH ×2 (08:44→22:08)
--- NOTE | 2017-09-06 09:47 | P.PNIM ---
Subjective Interval history: No complaints at this time. Pain control. Physical Exam Vital signs: Vital Signs 09/05/17 12:00 09/05/17 16:00 09/05/17 17:10 Temperature 97.6 F 97.7 F Pulse Rate 99 H 90 Respiratory Rate 18 18 18 Blood Pressure 131/85 149/92 H Pulse Oximetry 99 100 09/05/17 18:47 09/05/17 20:00 09/06/17 00:00 Temperature 99.1 F 98.2 F 97.6 F Pulse Rate 93 H 85 84 Respiratory Rate 18 16 16 Blood Pressure 144/92 H 144/87 H 143/85 H Pulse Oximetry 100 97 99 09/06/17 04:00 Temperature 97.8 F Pulse Rate 81 Respiratory Rate 16 Blood Pressure 122/77 Pulse Oximetry 98 Intake & Output 09/05/17 09/06/17 09/06/17 18:59 06:59 18:59 Intake Total 200 / 200 1457.5 / 1457.5 Output Total 800 / 800 Balance 200 / 200 657.5 / 657.5 Weight 91.8 kg 91.6 kg Intake: IV 200 / 200 617.5 / 617.5 Vancomycin Inj 1,750 MG In NS 517.5 / 517.5 Inj 500 ML @ 250 mls/hr IV.SIG Q8H [facility] Rx#:[id number] Ancef Inj 1,000 MG In NS Inj 200 / 200 100 / 100 100 ML @ 200 mls/hr IV.SIG Q8H [facility] Rx#:[id number] Oral 840 / 840 Output: Urine 800 / 800 Other: # Bowel Movements 0 Narrative: GENERAL: This is a well-nourished, well-developed patient, in no apparent distress. CARDIOVASCULAR: Regular rate and rhythm without murmurs, gallops, or rubs. RESPIRATORY: Clear to auscultation. Breath sounds equal bilaterally. No wheezes , rales, or rhonchi. GASTROINTESTINAL: Abdomen soft, non-tender, nondistended. Normal active bowel sounds MUSCULOSKELETAL: Extremities without clubbing, cyanosis, or edema. NEURO: Alert & Oriented x4 to person, place, time, situation. Moves all ext x4 Results - Labs CBC & Chem 7: 09/04/17 06:14 09/04/17 06:14 Laboratory Results - last 24 hr 09/05/17 11:00 Vancomycin Trough 10.7 H Assessment and Plan - Plan 32-year-old male with hx of IV drug abuse and hepatitis C presents to the ED as a transfer from an outside hospital for the evaluation of epidural abscess with concern for osteomyelitis. The patient was recently treated at [facility] for an epidural abscess, underwent surgery with Dr. Christine, was placed on IV antibiotics and then left AGAINST MEDICAL ADVICE. The patient reports he was in his home town where he went to the hospital to have his sutures out when there was concern that he may have an infection in the region. Epidural abscess: MRI of the lumbar spine significant for heterogeneous collection along the surgical site of the left L3 laminectomy that is concerning for abscess. Abnormal bone marrow signal in the left L2-L3 facet concerning for osteomyelitis. Bone marrow signal abnormality also identified in the left L2 pedicle concerning for osteomyelitis. Abnormal signal along the L2-L3 facet concerning for septic arthritis. -Continue antibiotics with IV Vancomycin and Ancef for duration of 6-8 weeks per infectious disease -Infectious disease consulted, appreciate recommendations -Neurosurgery consulted, appreciate recommendations, no surgical intervention for now -Pain control with [place] prn, and IV toradol 15mg q6h IV drug abuse: ongoing -Patient states his last use of IV heroin was approximately 2 days ago -Cessation counseling provided Hepatitis C: chronic -Outpatient follow-up DVT Prophylaxis: teds/SCDs
[2017-09-07] MEDS: Ketorolac Inj 30 MG/ML (IVP) Vial IV.PUSH SCH ×4 (00:22→17:01)
[2017-09-07] MEDS: Temazepam 15 MG Capsule PO PRN (00:23)
[2017-09-07] MEDS: Vancomycin Inj 1,750 MG in Sodium Chlor 0.9% Inj 500 ML IV.SIG SCH ×3 (05:22→20:49)
[2017-09-07] MEDS: Sod Chloride 0.9% Inj 1,000 ML IV.CONT SCH ×2 (05:24→15:30)
[2017-09-07] MEDS: Senna/Docusate Sodium 8.6/50 MG Tablet PO SCH ×2 (08:12→20:52)
--- NOTE | 2017-09-07 10:09 | P.PNIM ---
Subjective Interval history: No complaints. Appreciate a nicotine patch Physical Exam Vital signs: Vital Signs 09/06/17 12:00 09/06/17 16:00 09/06/17 20:00 Temperature 98.0 F 98.0 F 98.6 F Pulse Rate 90 93 H 104 H Respiratory Rate 20 18 18 Blood Pressure 133/85 141/91 H 146/94 H Pulse Oximetry 98 100 99 09/07/17 00:00 09/07/17 04:00 09/07/17 08:00 Temperature 98 F 97.7 F 98.1 F Pulse Rate 85 85 83 Respiratory Rate 18 18 17 Blood Pressure 142/92 H 136/90 144/95 H Pulse Oximetry 100 99 100 Intake & Output 09/06/17 09/07/17 09/07/17 18:59 06:59 18:59 Intake Total 1797.5 / 1797.5 1337.5 / 1337.5 100 / 100 Output Total 2170 / 2170 600 / 600 Balance -372.5 / -372.5 737.5 / 737.5 100 / 100 Weight 93.2 kg Intake: IV 717.5 / 717.5 617.5 / 617.5 100 / 100 Vancomycin Inj 1,750 MG In NS 517.5 / 517.5 517.5 / 517.5 Inj 500 ML @ 250 mls/hr IV.SIG Q8H [facility] Rx#:[id number] Ancef Inj 1,000 MG In NS Inj 200 / 200 100 / 100 100 / 100 100 ML @ 200 mls/hr IV.SIG Q8H [facility] Rx#:[id number] Oral 1080 / 1080 720 / 720 Output: Urine 2170 / 2170 600 / 600 Other: Date of Last Bowel Movement 09/06/17 # Bowel Movements 1 1 Narrative: GENERAL: This is a well-nourished, well-developed patient, in no apparent distress. CARDIOVASCULAR: Regular rate and rhythm without murmurs, gallops, or rubs. RESPIRATORY: Clear to auscultation. Breath sounds equal bilaterally. No wheezes , rales, or rhonchi. GASTROINTESTINAL: Abdomen soft, non-tender, nondistended. Normal active bowel sounds MUSCULOSKELETAL: Extremities without clubbing, cyanosis, or edema. NEURO: Alert & Oriented x4 to person, place, time, situation. Moves all ext x4 Results - Labs CBC & Chem 7: 09/04/17 06:14 09/04/17 06:14 Assessment and Plan - Plan 32-year-old male with hx of IV drug abuse and hepatitis C presents to the ED as a transfer from an outside hospital for the evaluation of epidural abscess with concern for osteomyelitis. The patient was recently treated at [facility] for an epidural abscess, underwent surgery with Dr. Christine, was placed on IV antibiotics and then left AGAINST MEDICAL ADVICE. The patient reports he was in his home town where he went to the hospital to have his sutures out when there was concern that he may have an infection in the region. Epidural abscess: MRI of the lumbar spine significant for heterogeneous collection along the surgical site of the left L3 laminectomy that is concerning for abscess. Abnormal bone marrow signal in the left L2-L3 facet concerning for osteomyelitis. Bone marrow signal abnormality also identified in the left L2 pedicle concerning for osteomyelitis. Abnormal signal along the L2-L3 facet concerning for septic arthritis. -Continue antibiotics with IV Vancomycin and Ancef for duration of 6-8 weeks per infectious disease Dr. Castro -Infectious disease consulted, appreciate recommendations -Neurosurgery consulted, appreciate recommendations, no surgical intervention for now -Pain control with [place] prn, and IV toradol 15mg q6h through September 09 IV drug abuse: ongoing -Patient states his last use of IV heroin was approximately 2 days ago -Cessation counseling provided Hepatitis C: chronic -Outpatient follow-up Tobacco abuse, cessation counseling, start a nicotine patch. DVT Prophylaxis: teds/SCDs
[2017-09-07] MEDS ORDERED: Pharmacy Ordered Lab Info OTHER ONE (11:45)
[2017-09-08] MEDS: Ketorolac Inj 30 MG/ML (IVP) Vial IV.PUSH SCH ×4 (01:42→17:33)
[2017-09-08] MEDS: Temazepam 15 MG Capsule PO PRN (01:44)
[2017-09-08] MEDS: Sod Chloride 0.9% Inj 1,000 ML IV.CONT SCH ×3 (03:17→23:44)
[2017-09-08] MEDS ORDERED: Pharmacy Ordered Lab Info OTHER ONE (03:45)
[2017-09-08] MEDS: Vancomycin Inj 1,750 MG in Sodium Chlor 0.9% Inj 500 ML IV.SIG SCH ×3 (04:08→20:55)
[2017-09-08 04:47] LABS: Glomerular Filtration Rate Greater Than 89 mL/min (>89)
[2017-09-08 04:48] LABS: Vancomycin,Trough 14.4 mcg/mL (5.0-10.0)
[2017-09-08] MEDS: Senna/Docusate Sodium 8.6/50 MG Tablet PO SCH ×2 (08:00→20:55)
--- NOTE | 2017-09-08 14:06 | P.PNIM ---
Subjective Interval history: Pt seen and examined for f/u of lumbar epidural abscess. Father is present in the room. He has no complaints and reports he is feeling well. Denies any pain. Ambulating the halls. Tolerating PO without nausea or vomiting. He denies any withdrawal symptoms and states on discharge after his course of IV antibiotics are complete he plans on returning to [place] where he is from and entering an inpatient rehab program. Last use was three weeks ago. He wants to completely quit IV drugs and feels motivated. Physical Exam Vital signs: Vital Signs 09/07/17 16:00 09/07/17 20:00 09/08/17 00:00 Temperature 98.2 F 98 F 98.3 F Pulse Rate 97 H 96 H 91 H Respiratory Rate 17 16 18 Blood Pressure 143/87 H 143/85 H 150/94 H Pulse Oximetry 98 99 99 09/08/17 04:00 09/08/17 05:05 09/08/17 06:00 Temperature 97.5 F L Pulse Rate 93 H Respiratory Rate 18 18 18 Blood Pressure 145/80 H Pulse Oximetry 99 09/08/17 08:00 Temperature 97.6 F Pulse Rate 74 Respiratory Rate 16 Blood Pressure 127/76 Pulse Oximetry 98 Intake & Output 09/07/17 09/08/17 09/08/17 18:59 06:59 18:59 Intake Total 2560 / 2560 1377.5 / 1377.5 617.5 / 617.5 Output Total 1000 / 1000 Balance 1560 / 1560 1377.5 / 1377.5 617.5 / 617.5 Weight 93.8 kg Intake: IV 1600 / 1600 717.5 / 717.5 617.5 / 617.5 Vancomycin Inj 1,750 MG In NS 1500 / 1500 517.5 / 517.5 517.5 / 517.5 Inj 500 ML @ 250 mls/hr IV.SIG Q8H [facility] Rx#:[id number] Ancef Inj 1,000 MG In NS Inj 100 / 100 200 / 200 100 / 100 100 ML @ 200 mls/hr IV.SIG Q8H [facility] Rx#:[id number] Oral 960 / 960 660 / 660 Output: Urine 1000 / 1000 Other: # Voids 5 Date of Last Bowel Movement 09/07/17 # Bowel Movements 1 Narrative: GENERAL: WN, WD male resting in bed in [facility]. SKIN: Warm and dry. HEENT: AT/NC. Pupils equal and round. MMM. NECK: Supple no tender LAD or JVD. HEART: RRR no m/r/g. LUNGS: CTAB without wheezes or crackles. ABDOMEN: +BS, soft, NT, ND. BACK: Mild erythema and swelling around lumbar incision site with some granulation tissue present. Not actively draining. EXTREMITIES: No LE edema. 2+ pedal pulses. NEURO: Awake and alert. Nonfocal. PSYCH: Appropriate mood and affect. Results - Labs CBC & Chem 7: 09/04/17 06:14 09/08/17 03:55 Laboratory Results - last 24 hr 09/08/17 03:55 Creatinine 0.89 Estimated GFR Greater than 89 Vancomycin Trough 14.4 H Assessment and Plan - Assessment (1) Epidural abscess Code(s): G06.2 - Extradural and subdural abscess, unspecified Status: Acute - Plan 32 year old male with IV drug and HCV use re-admitted 09/03 for treatment of lumbar epidural abscess. The patient was originally admitted to a hospital in [place] and was partially treated for MSSA bacteremia prior to leaving [facility]. He was then admitted to [place] on 08/20 where he underwent surgical treatment for a lumbar epidural abscess and was started on IV antibiotics. However, he again left [facility] on 08/25. He went back to the hospital in [place] for back pain where he was subsequently transferred to [place]. 1. Epidural abscess - S/P L2-3 decompressive laminectomy and evacuation of epidural abscess on 08/21 during prior hospitalization - Neurosurgery following, no further operative intervention indicated - ID following, recommend 6-8 wks of antibiotics - Blood and wound cultures from prior hospitalization negative - [place] and Toradol PRN 2. IVDU - Counseled on the importance of cessation - Pt planning on going to rehab on discharge 3. Noncompliance - Counseled on the importance of completing full treatment of antibiotics and patient understands 4. HCV - Chronic, f/u as outpatient DVT prophylaxis: Ambulatory Code Status: FULL Discussed Condition With: Patient and his father Discharge Planning: After course of IV antibiotics complete. He is from [place] and plans on returning after discharge. He has left [facility] in the past and there is concern for IV drug use to occur should he be discharged with outpatient IV infusions.
[2017-09-09] MEDS: Temazepam 15 MG Capsule PO PRN (00:10)
[2017-09-09] MEDS: Ketorolac Inj 30 MG/ML (IVP) Vial IV.PUSH SCH ×3 (00:10→11:51)
[2017-09-09] MEDS: Vancomycin Inj 1,750 MG in Sodium Chlor 0.9% Inj 500 ML IV.SIG SCH ×3 (03:51→19:57)
[2017-09-09] MEDS: Senna/Docusate Sodium 8.6/50 MG Tablet PO SCH ×2 (10:25→23:26)
[2017-09-09] MEDS: Sod Chloride 0.9% Inj 1,000 ML IV.CONT SCH ×2 (11:51→17:29)
--- NOTE | 2017-09-09 15:16 | P.PNIM ---
Subjective Interval history: Pt seen and examined for f/u of epidural abscess. AFVSS. No acute events overnight. Pt reports he is feeling well. Only concern is some LLE weakness when compared to his right. He states he can't hold his left leg up as long as he can on his right side. He states he feels a difference in strength especially when he goes to put on pants. He denies any numbness, tingling, bowel or bladder incontinence. He otherwise feels well. Denies pain at his prior incision site. Physical Exam Vital signs: Vital Signs 09/08/17 16:00 09/08/17 20:00 09/09/17 00:00 Temperature 98.6 F 98.0 F 97.9 F Pulse Rate 101 H 101 H 107 H Respiratory Rate 20 20 20 Blood Pressure 140/87 162/97 H 129/92 H Pulse Oximetry 98 99 97 09/09/17 04:00 09/09/17 08:00 Temperature 97.8 F 97.7 F Pulse Rate 90 83 Respiratory Rate 20 18 Blood Pressure 155/87 H 118/75 Pulse Oximetry 97 97 Intake & Output 09/08/17 09/09/17 09/09/17 18:59 06:59 18:59 Intake Total 1235.0 / 1235.0 1375.0 / 1375.0 Balance 1235.0 / 1235.0 1375.0 / 1375.0 Weight 94.7 kg Intake: IV 1235.0 / 1235.0 1135.0 / 1135.0 Vancomycin Inj 1,750 MG In NS 1035.0 / 1035.0 1035.0 / 1035.0 Inj 500 ML @ 250 mls/hr IV.SIG Q8H [facility] Rx#:[id number] Ancef Inj 1,000 MG In NS Inj 200 / 200 100 / 100 100 ML @ 200 mls/hr IV.SIG Q8H [facility] Rx#:[id number] Oral 240 / 240 Other: # Voids 4 # Bowel Movements 2 Narrative: GENERAL: WN, WD male resting in bed in [facility]. SKIN: Warm and dry. HEENT: AT/NC. Pupils equal and round. MMM. NECK: Supple no tender LAD or JVD. HEART: RRR no m/r/g. LUNGS: CTAB without wheezes or crackles. ABDOMEN: +BS, soft, NT, ND. BACK: Mild erythema and swelling around lumbar incision site with some granulation tissue present. Not actively draining. EXTREMITIES: No LE edema. 2+ pedal pulses. NEURO: Awake and alert. Nonfocal. PSYCH: Appropriate mood and affect. Results - Labs CBC & Chem 7: 09/04/17 06:14 09/08/17 03:55 Assessment and Plan - Assessment (1) Epidural abscess Code(s): G06.2 - Extradural and subdural abscess, unspecified Status: Acute - Plan 32 year old male with IV drug and HCV use re-admitted 09/03 for treatment of lumbar epidural abscess. The patient was originally admitted to a hospital in [place] and was partially treated for MSSA bacteremia prior to leaving [facility]. He was then admitted to [place] on 08/20 where he underwent surgical treatment for a lumbar epidural abscess and was started on IV antibiotics. However, he again left [place] on 08/25. He went back to the hospital in [place] for back pain where he was subsequently transferred to [place]. 1. Epidural abscess - S/P L2-3 decompressive laminectomy and evacuation of epidural abscess on 08/21 during prior hospitalization - Neurosurgery following, no further operative intervention indicated - ID following, recommend 6-8 wks of antibiotics - Blood and wound cultures from prior hospitalization negative - [place] and Toradol PRN - PT to eval and treat 2. IVDU - Counseled on the importance of cessation - Pt planning on going to rehab on discharge 3. Noncompliance - Counseled on the importance of completing full treatment of antibiotics and patient understands 4. HCV - Chronic, f/u as outpatient DVT prophylaxis: Ambulatory Discussed Condition With: Patient and his father Discharge Planning: After course of IV antibiotics complete. He is from [place] and plans on returning after discharge. He has left [place] in the past and there is concern for IV drug use to occur should he be discharged with outpatient IV infusions.
[2017-09-10] MEDS ORDERED: Pharmacy Ordered Lab Info OTHER ONE (03:45)
[2017-09-10] MEDS: Vancomycin Inj 1,750 MG in Sodium Chlor 0.9% Inj 500 ML IV.SIG SCH (03:53)
[2017-09-10] MEDS: Sod Chloride 0.9% Inj 1,000 ML IV.CONT SCH ×2 (04:57→13:40)
--- NOTE | 2017-09-10 08:16 | P.PNIM ---
Subjective Interval history: Pt seen and examined for f/u of epidural abscess. AFVSS. No acute events overnight. Pt has no complaints. Ambulating, tolerating PO, no CP/SOB/N/V. No pain at incision site in back. Physical Exam Vital signs: Vital Signs 09/09/17 12:00 09/09/17 16:00 09/09/17 20:00 Temperature 98.0 F 98.2 F 98.1 F Pulse Rate 101 H 100 H 107 H Respiratory Rate 18 18 18 Blood Pressure 147/88 H 144/90 H 140/86 Pulse Oximetry 99 97 98 09/10/17 00:00 09/10/17 04:00 Temperature 98.6 F 98 F Pulse Rate 98 H 104 H Respiratory Rate 18 17 Blood Pressure 143/90 H 121/72 Pulse Oximetry 98 97 Intake & Output 09/09/17 09/10/17 09/10/17 18:59 06:59 18:59 Intake Total 1437.5 / 1437.5 1855.0 / 1855.0 Output Total 650 / 650 Balance 1437.5 / 1437.5 1205.0 / 1205.0 Weight 100.5 kg Intake: IV 717.5 / 717.5 1135.0 / 1135.0 Vancomycin Inj 1,750 MG In NS 517.5 / 517.5 1035.0 / 1035.0 Inj 500 ML @ 250 mls/hr IV.SIG Q8H [facility] Rx#:[id number] Ancef Inj 1,000 MG In NS Inj 200 / 200 100 / 100 100 ML @ 200 mls/hr IV.SIG Q8H [facility] Rx#:[id number] Oral 720 / 720 720 / 720 Output: Urine 650 / 650 Other: # Voids 2 Date of Last Bowel Movement 09/07/17 09/10/17 # Bowel Movements 1 2 Narrative: GENERAL: WN, WD male resting in bed in [facility]. SKIN: Warm and dry. HEART: RRR no m/r/g. LUNGS: CTAB without wheezes or crackles. ABDOMEN: +BS, soft, NT, ND. BACK: Mild erythema and swelling around lumbar incision site with some granulation tissue present. Not actively draining. EXTREMITIES: No LE edema. 2+ pedal pulses. NEURO: Awake and alert. Nonfocal. PSYCH: Appropriate mood and affect. Results - Labs CBC & Chem 7: 09/04/17 06:14 09/08/17 03:55 Laboratory Results - last 24 hr 09/10/17 03:50 Vancomycin Trough 24.7 H Assessment and Plan - Assessment (1) Epidural abscess Code(s): G06.2 - Extradural and subdural abscess, unspecified Status: Acute - Plan 32 year old male with IV drug and HCV use re-admitted 09/03 for treatment of lumbar epidural abscess. The patient was originally admitted to a hospital in [place] and was partially treated for MSSA bacteremia prior to leaving [facility]. He was then admitted to [place] on 08/20 where he underwent surgical treatment for a lumbar epidural abscess and was started on IV antibiotics. However, he again left [facility] on 08/25. He went back to the hospital in [place] for back pain where he was subsequently transferred to [place]. The plan is for the patient to remain in the hospital for IV antibiotics given his recent noncompliance and hospital-bouncing. 1. Epidural abscess - S/P L2-3 decompressive laminectomy and evacuation of epidural abscess on 08/21 during prior hospitalization - Neurosurgery following, no further operative intervention indicated - On vanc and cefazolin - ID following, recommend 6-8 wks of antibiotics - Blood and wound cultures from prior hospitalization negative - [place] and Toradol PRN - PT to eval and treat - Monitor renal function periodically while on vanco 2. IVDU - Counseled on the importance of cessation - Pt planning on going to rehab on discharge 3. Noncompliance - Counseled on the importance of completing full treatment of antibiotics and patient understands 4. HCV - Elevated LFTs - Chronic, f/u as outpatient 5. Tobacco dependence - Nicotine patch DVT prophylaxis: Ambulatory Discussed Condition With: The patient Discharge Planning: After course of IV antibiotics complete. He is from [place] and plans on returning after discharge. He has left [facility] in the past and there is concern for IV drug use to occur should he be discharged with outpatient IV infusions.
[2017-09-10] MEDS: Senna/Docusate Sodium 8.6/50 MG Tablet PO SCH ×2 (11:54→21:20)
[2017-09-10] MEDS ORDERED: Vancomycin Inj 1,500 MG in Sodium Chlor 0.9% Inj 500 ML IV.SIG SCH (18:00)
[2017-09-11] MEDS: Vancomycin Inj 1,500 MG in Sodium Chlor 0.9% Inj 500 ML IV.SIG SCH ×3 (04:39→11:11)
[2017-09-11] MEDS: Senna/Docusate Sodium 8.6/50 MG Tablet PO SCH ×2 (08:13→22:32)
[2017-09-11 09:16] LABS: Hematocrit 34.3 % (39.0-51.0); Hemoglobin 11.4 gm/dL (13.0-17.0); Mean Corpuscular HGB Conc 33.1 % (32.0-36.0); Mean Corpuscular Hemoglobin 29.3 pg (27.0-34.0); Mean Corpuscular Volume 88.5 fL (80.0-100.0); Mean Platelet Volume 9.9 fL (7.0-11.0); Platelet Count 183 th/mm3 (150-450); Red Blood Count 3.88 mil/mm3 (4.50-5.90); White Blood Count 5.1 th/mm3 (4.0-11.0)
[2017-09-11 09:41] LABS: Albumin 3.2 g/dL (3.4-5.0); Anion Gap 3 meq/L (5-15); Aspartate Aminotransferase 82 U/L (15-37); Blood Urea Nitrogen 12 mg/dL (7-18); Calcium 9.3 mg/dL (8.5-10.1); Carbon Dioxide 32.5 meq/L (21.0-32.0); Chloride 105 meq/L (98-107); Glomerular Filtration Rate 68 mL/min (>89); Glucose,Random 87 mg/dL (74-106); Sodium 140 meq/L (136-145)
[2017-09-11 09:47] LABS: Alanine Aminotransferase 129 U/L (12-78); Alkaline Phosphatase 110 U/L (45-117); Total Protein 7.6 g/dL (6.4-8.2)
--- NOTE | 2017-09-11 14:42 | P.PN ---
Subjective Interval history: Patient is comfortable, pain controlled, no complaints. Physical Exam Vital signs: Vital Signs 09/10/17 16:00 09/10/17 20:00 09/11/17 00:00 Temperature 98.0 F 100.4 F H Pulse Rate 98 H 102 H 93 H Respiratory Rate 16 17 19 Blood Pressure 132/80 143/73 H 138/82 Pulse Oximetry 100 99 97 09/11/17 03:23 09/11/17 08:00 09/11/17 12:00 Temperature 97.7 F 97.8 F 97.9 F Pulse Rate 100 H 94 H 109 H Respiratory Rate 16 18 18 Blood Pressure 124/65 136/87 137/99 H Pulse Oximetry 98 94 L 99 Intake & Output 09/10/17 09/11/17 09/11/17 18:59 06:59 18:59 Intake Total 620 / 620 995 / 995 615 / 615 Output Total 400 / 400 Balance 620 / 620 595 / 595 615 / 615 Weight 96.6 kg Intake: IV 100 / 100 715 / 715 615 / 615 Vancomycin Inj 1,500 MG In NS 515 / 515 515 / 515 Inj 500 ML @ 250 mls/hr IV.SIG Q8H [facility] Rx#:[id number] Ancef Inj 1,000 MG In NS Inj 100 / 100 200 / 200 100 / 100 100 ML @ 200 mls/hr IV.SIG Q8H [facility] Rx#:[id number] Oral 520 / 520 280 / 280 Output: Urine 400 / 400 Other: # Voids 1,400 3 Date of Last Bowel Movement 09/10/17 # Bowel Movements 2 Narrative: GENERAL: AAOx3, No acute distress SKIN: Warm and dry. HEAD: Normocephalic. EYES: No scleral icterus. No injection or drainage. NECK: Supple, trachea midline. No JVD or lymphadenopathy. CARDIOVASCULAR: Regular rate and rhythm without murmurs, gallops, or rubs. RESPIRATORY: Breath sounds equal bilaterally. No accessory muscle use. GASTROINTESTINAL: Abdomen soft, non-tender, nondistended. MUSCULOSKELETAL: No cyanosis, or edema. Results - Labs CBC & Chem 7: 09/11/17 08:39 09/11/17 08:39 Laboratory Results - last 24 hr 09/11/17 09/11/17 09/11/17 08:39 08:39 08:39 WBC 5.1 RBC 3.88 L Hgb 11.4 L Hct 34.3 L MCV 88.5 MCH 29.3 MCHC 33.1 RDW 14.0 Plt Count 183 MPV 9.9 ESR 41 H Sodium 140 Potassium 4.0 Chloride 105 Carbon Dioxide 32.5 H Anion Gap 3 L BUN 12 Creatinine 1.24 Estimated GFR 68 L Random Glucose 87 Calcium 9.3 Total Bilirubin 0.4 AST 82 H ALT 129 H Alkaline Phosphatase 110 Total Protein 7.6 Albumin 3.2 L Assessment and Plan - Assessment (1) Epidural abscess Code(s): G06.2 - Extradural and subdural abscess, unspecified Status: Acute - Plan Epidural abscess S/P L2-3 decompressive laminectomy and evacuation of epidural abscess on 08/21 during prior hospitalization Neurosurgery following, no further operative intervention indicated Continue vanc and cefazolin ID recommend 6-8 wks of antibiotics Blood and wound cultures from prior hospitalization negative [place] and Toradol PRN IVDU Counseled on the importance of cessation Pt planning on going to rehab on discharge Noncompliance hx of non-compliance and leaving AMA Counseled on the importance of completing full treatment of antibiotics and patient understands HCV Elevated LFTs Chronic, f/u as outpatient Tobacco Abuse Nicotine patch DVT prophylaxis Ambulatory Discharge Planning Transfer from [facility], left AMA before. After course of IV antibiotics complete. He is from [place] and plans on returning after discharge. He has left [facility] in the past and there is concern for IV drug use to occur should he be discharged with outpatient IV infusions.
[2017-09-11] MEDS ORDERED: Pharmacy Ordered Lab Info OTHER ONE (17:45)
[2017-09-12] MEDS: Senna/Docusate Sodium 8.6/50 MG Tablet PO SCH ×2 (08:16→20:28)
--- NOTE | 2017-09-12 14:53 | P.PN ---
Subjective Interval history: Patient is resting comfortably today, no complaints of pain. He is asking if it is possible to transfer to [place] for continuation of IV antibiotics Physical Exam Vital signs: Vital Signs 09/11/17 16:00 09/11/17 20:00 09/12/17 00:00 Temperature 98.2 F 99 F 98.7 F Pulse Rate 112 H 112 H 115 H Respiratory Rate 18 18 16 Blood Pressure 139/85 151/89 H 113/78 Pulse Oximetry 99 99 99 09/12/17 04:00 09/12/17 08:00 09/12/17 12:00 Temperature 97.8 F 97.8 F 97.7 F Pulse Rate 97 H 84 83 Respiratory Rate 15 18 18 Blood Pressure 145/96 H 139/78 138/87 Pulse Oximetry 97 99 98 Intake & Output 09/11/17 09/12/17 09/12/17 18:59 06:59 18:59 Intake Total 1235 / 1235 540 / 540 100 / 100 Output Total 1350 / 1350 Balance 1235 / 1235 -810 / -810 100 / 100 Weight 95.1 kg Intake: IV 715 / 715 100 / 100 100 / 100 Vancomycin Inj 1,500 MG In NS 515 / 515 Inj 500 ML @ 250 mls/hr IV.SIG Q8H [facility] Rx#:[id number] Ancef Inj 1,000 MG In NS Inj 200 / 200 100 / 100 100 / 100 100 ML @ 200 mls/hr IV.SIG Q8H [facility] Rx#:[id number] Oral 520 / 520 440 / 440 Output: Urine 1350 / 1350 Other: # Voids 1,800 # Bowel Movements 2 1 Narrative: GENERAL: AAOx3, No acute distress SKIN: Warm and dry. HEAD: Normocephalic. EYES: No scleral icterus. No injection or drainage. NECK: Supple, trachea midline. No JVD or lymphadenopathy. CARDIOVASCULAR: Regular rate and rhythm without murmurs, gallops, or rubs. RESPIRATORY: Breath sounds equal bilaterally. No accessory muscle use. GASTROINTESTINAL: Abdomen soft, non-tender, nondistended. MUSCULOSKELETAL: No cyanosis, or edema. Results - Labs CBC & Chem 7: 09/11/17 08:39 09/11/17 08:39 Assessment and Plan - Assessment (1) Epidural abscess Code(s): G06.2 - Extradural and subdural abscess, unspecified Status: Acute - Plan 32-year-old male with history of IVDU was admitted for antibiotic treatment of discitis. No change to current plan. Epidural abscess S/P L2-3 decompressive laminectomy and evacuation of epidural abscess on 08/21 during prior hospitalization Neurosurgery following, no further operative intervention indicated Continue vanc and cefazolin ID recommend 6-8 wks of antibiotics Blood and wound cultures from prior hospitalization negative [place] and Toradol PRN IVDU Counseled on the importance of cessation Pt planning on going to rehab on discharge Noncompliance hx of non-compliance and leaving AMA Counseled on the importance of completing full treatment of antibiotics and patient understands HCV Elevated LFTs Chronic, f/u as outpatient Tobacco Abuse Nicotine patch DVT prophylaxis Ambulatory Discharge Planning Transfer from [facility], left AMA before. After course of IV antibiotics complete. He is from [place] and plans on returning after discharge. He has left [facility] in the past and there is concern for IV drug use to occur should he be discharged with outpatient IV infusions.
[2017-09-13] MEDS: Senna/Docusate Sodium 8.6/50 MG Tablet PO SCH ×2 (09:36→20:51)
--- NOTE | 2017-09-13 16:33 | P.PN ---
Subjective Interval history: Patient is admitted for ongoing IV therapy for discitis. He is unreliable outpatient PICC line option due to history of IV drug use. Physical Exam Vital signs: Vital Signs 09/12/17 20:00 09/13/17 00:00 09/13/17 04:00 Temperature 98.9 F 99.3 F 98.2 F Pulse Rate 107 H 90 98 H Respiratory Rate 18 18 18 Blood Pressure 142/80 H 132/70 131/68 Pulse Oximetry 99 97 100 09/13/17 08:00 09/13/17 11:52 09/13/17 16:00 Temperature 98.0 F 97.4 F L 98.3 F Pulse Rate 89 104 H 106 H Respiratory Rate 18 18 18 Blood Pressure 129/77 122/77 118/77 Pulse Oximetry 99 98 98 Intake & Output 09/12/17 09/13/17 09/13/17 18:59 06:59 18:59 Intake Total 1396 / 1396 100 / 100 100 / 100 Output Total 1500 / 1500 Balance -104 / -104 100 / 100 100 / 100 Intake: IV 200 / 200 100 / 100 100 / 100 Ancef Inj 1,000 MG In NS Inj 200 / 200 100 / 100 100 / 100 100 ML @ 200 mls/hr IV.SIG Q8H [facility] Rx#:[id number] Oral 716 / 716 Oral Supplement 480 / 480 Output: Urine 1500 / 1500 Other: # Voids 3 # Incontinent Voids 0 # Urine Diapers 0 Date of Last Bowel Movement 09/12/17 Narrative: GENERAL: AAOx3, No acute distress SKIN: Warm and dry. HEAD: Normocephalic. EYES: No scleral icterus. No injection or drainage. NECK: Supple, trachea midline. No JVD or lymphadenopathy. CARDIOVASCULAR: Regular rate and rhythm without murmurs, gallops, or rubs. RESPIRATORY: Breath sounds equal bilaterally. No accessory muscle use. GASTROINTESTINAL: Abdomen soft, non-tender, nondistended. MUSCULOSKELETAL: No cyanosis, or edema. Results - Labs CBC & Chem 7: 09/11/17 08:39 09/11/17 08:39 Assessment and Plan - Assessment (1) Epidural abscess Code(s): G06.2 - Extradural and subdural abscess, unspecified Status: Acute - Plan 32-year-old male with history of IVDU was admitted for antibiotic treatment of discitis. No change to current plan. 09/13/17 = discharge to [place] for IV therapy is not an option, outpatient is currently questionable due to history of IV drug use and noncompliance. Continue with current plan Epidural abscess S/P L2-3 decompressive laminectomy and evacuation of epidural abscess on 08/21 during prior hospitalization Neurosurgery following, no further operative intervention indicated Continue vanc and cefazolin ID recommend 6-8 wks of antibiotics Blood and wound cultures from prior hospitalization negative [place] and Toradol PRN IVDU Counseled on the importance of cessation Pt planning on going to rehab on discharge Noncompliance hx of non-compliance and leaving AMA Counseled on the importance of completing full treatment of antibiotics and patient understands HCV Elevated LFTs Chronic, f/u as outpatient Tobacco Abuse Nicotine patch DVT prophylaxis Ambulatory Discharge Planning Transfer from [facility], left AMA before. After course of IV antibiotics complete. He is from [place] and plans on returning after discharge. He has left [facility] in the past and there is concern for IV drug use to occur should he be discharged with outpatient IV infusions.
[2017-09-13] MEDS: Temazepam 15 MG Capsule PO PRN (23:23)
[2017-09-14] MEDS: Senna/Docusate Sodium 8.6/50 MG Tablet PO SCH ×2 (08:31→21:49)
[2017-09-14] MEDS ORDERED: Ketorolac Inj 30 MG/ML (IVP) Vial IV.PUSH PRN (11:57)
--- NOTE | 2017-09-14 12:04 | P.PN ---
Subjective Interval history: Patient is resting comfortably, he has concerns about swelling around his wound of his lower back. Sutures were removed and wound is slightly open but healing well. Physical Exam Vital signs: Vital Signs 09/13/17 16:00 09/13/17 20:00 09/14/17 00:00 Temperature 98.3 F 98.4 F 98.3 F Pulse Rate 106 H 109 H 102 H Respiratory Rate 18 18 18 Blood Pressure 118/77 110/63 114/63 Pulse Oximetry 98 98 99 09/14/17 04:00 09/14/17 08:00 Temperature 98.5 F 97.7 F Pulse Rate 84 95 H Respiratory Rate 18 18 Blood Pressure 101/62 112/57 L Pulse Oximetry 98 98 Intake & Output 09/13/17 09/14/17 09/14/17 18:59 06:59 18:59 Intake Total 100 / 100 440 / 440 100 / 100 Output Total 1100 / 1100 Balance 100 / 100 -660 / -660 100 / 100 Weight 94.9 kg Intake: IV 100 / 100 200 / 200 100 / 100 Ancef Inj 1,000 MG In NS Inj 100 / 100 200 / 200 100 / 100 100 ML @ 200 mls/hr IV.SIG Q8H [facility] Rx#:[id number] Oral 240 / 240 Output: Urine 1100 / 1100 Other: Date of Last Bowel Movement 09/12/17 09/14/17 Narrative: GENERAL: AAOx3, No acute distress SKIN: Warm and dry. Linear wound on L4 space, superficial, slightly indurated, not deep but with some superficial pus HEAD: Normocephalic. EYES: No scleral icterus. No injection or drainage. NECK: Supple, trachea midline. No JVD or lymphadenopathy. CARDIOVASCULAR: Regular rate and rhythm without murmurs, gallops, or rubs. RESPIRATORY: Breath sounds equal bilaterally. No accessory muscle use. GASTROINTESTINAL: Abdomen soft, non-tender, nondistended. MUSCULOSKELETAL: No cyanosis, or edema. Results - Labs CBC & Chem 7: 09/11/17 08:39 09/11/17 08:39 Assessment and Plan - Assessment (1) Epidural abscess Code(s): G06.2 - Extradural and subdural abscess, unspecified Status: Acute - Plan 32-year-old male with history of IVDU was admitted for antibiotic treatment of discitis. No change to current plan. 09/13/17 = discharge to [place] for IV therapy is not an option, outpatient is currently questionable due to history of IV drug use and noncompliance. Continue with current plan 09/14/17 = patient is willing to stay in house for 6-8 weeks if necessary. He has good insight into his addiction. Epidural abscess S/P L2-3 decompressive laminectomy and evacuation of epidural abscess on 08/21 during prior hospitalization Neurosurgery following, no further operative intervention indicated Continue vanc and cefazolin ID recommend 6-8 wks of antibiotics Blood and wound cultures from prior hospitalization negative [place] and Toradol PRN Superficial wound There is some redness and superficial pus around area where sutures were removed Add Bactroban and twice daily dressing changes Well covered with vancomycin and cefazolin Explained to patient that redness and swelling will reduce the time IVDU Counseled on the importance of cessation Pt planning on going to rehab on discharge Noncompliance hx of non-compliance and leaving AMA Counseled on the importance of completing full treatment of antibiotics and patient understands HCV Elevated LFTs Chronic, f/u as outpatient Tobacco Abuse Nicotine patch DVT prophylaxis Ambulatory Discharge Planning Patient is willing to stay for 6-8 weeks and recognizes that he has high risk due to his history of IV drug use. He has no living arrangement in [place]
[2017-09-14] MEDS ORDERED: Zolpidem Tartrate 5 MG Tablet PO PRN (21:00)
[2017-09-15 09:29] LABS: Hematocrit 36.5 % (39.0-51.0); Hemoglobin 12.1 gm/dL (13.0-17.0); Mean Corpuscular HGB Conc 33.3 % (32.0-36.0); Mean Corpuscular Hemoglobin 29.4 pg (27.0-34.0); Mean Corpuscular Volume 88.5 fL (80.0-100.0); Mean Platelet Volume 11.1 fL (7.0-11.0); Platelet Count 182 th/mm3 (150-450); Red Blood Count 4.12 mil/mm3 (4.50-5.90); Red Cell Distribution Width 13.9 % (11.6-17.2); White Blood Count 4.4 th/mm3 (4.0-11.0)
[2017-09-15 10:08] LABS: Carbon Dioxide 26.2 meq/L (21.0-32.0)
[2017-09-15] MEDS: Senna/Docusate Sodium 8.6/50 MG Tablet PO SCH ×2 (10:26→21:11)
--- NOTE | 2017-09-15 10:45 | P.PNIM ---
Subjective Interval history: Patient's primary complaint today is lack of sleep overnight. She just started on Ambien which was somewhat helpful but did not allow him to sleep. No other complaints. Pain under control. Physical Exam Vital signs: Vital Signs 09/14/17 12:00 09/14/17 16:00 09/14/17 20:00 Temperature 97.9 F 97.3 F L 98.2 F Pulse Rate 105 H 100 H 98 H Respiratory Rate 18 18 16 Blood Pressure 132/63 113/66 121/77 Pulse Oximetry 98 98 99 09/15/17 00:00 09/15/17 04:00 09/15/17 08:00 Temperature 98.1 F 98 F 97.4 F L Pulse Rate 95 H 94 H 91 H Respiratory Rate 16 18 20 Blood Pressure 121/71 123/79 112/69 Pulse Oximetry 100 99 99 Intake & Output 09/14/17 09/15/17 09/15/17 18:59 06:59 18:59 Intake Total 760 / 760 100 / 100 Output Total 1225 / 1225 Balance -465 / -465 100 / 100 Weight 96.4 kg Intake: IV 200 / 200 100 / 100 Ancef Inj 1,000 MG In NS Inj 200 / 200 100 / 100 100 ML @ 200 mls/hr IV.SIG Q8H [facility] Rx#:[id number] Oral 560 / 560 Output: Urine 1225 / 1225 Other: Date of Last Bowel Movement 09/14/17 # Bowel Movements 1 Narrative: GENERAL: NAD, A&Ox3 HEAD: Normocephalic. NECK: Supple, trachea midline. No lymphadenopathy. EYES: No scleral icterus. No injection or drainage. CARDIOVASCULAR: Regular rate and rhythm without murmurs, gallops, or rubs. RESPIRATORY: Breath sounds equal bilaterally. No accessory muscle use. GASTROINTESTINAL: Abdomen soft, non-tender, nondistended. MUSCULOSKELETAL: No cyanosis, or edema. SKIN: Warm and dry. Healing wound at lower back. NEURO: No focal neurological deficits. Results - Labs CBC & Chem 7: 09/15/17 08:10 09/15/17 08:10 Laboratory Results - last 24 hr 09/15/17 09/15/17 08:10 08:10 WBC 4.4 RBC 4.12 L Hgb 12.1 L Hct 36.5 L MCV 88.5 MCH 29.4 MCHC 33.3 RDW 13.9 Plt Count 182 MPV 11.1 H Sodium 141 Potassium 4.0 Chloride 106 Carbon Dioxide 26.2 Anion Gap 9 BUN 17 Creatinine 1.11 Estimated GFR 78 L Random Glucose 77 Calcium 9.0 Assessment and Plan - Assessment (1) Epidural abscess Code(s): G06.2 - Extradural and subdural abscess, unspecified Status: Acute - Plan 32-year-old male with history of IV drug abuse admitted secondary to epidural abscess. Epidural abscess S/P L2-3 decompressive laminectomy and evacuation of epidural abscess on 08/21 during prior hospitalization no further operative intervention indicated per neurosurgery Continue vanc and cefazolin ID following ID recommend 6-8 wks of antibiotics [place] and Toradol PRN Insomnia Ambien Superficial wound Healing through time Add Bactroban and twice daily dressing changes Continue vancomycin and cefazolin IVDU Counseled on the importance of cessation Pt planning on going to drug abuse rehab on discharge History of noncompliance/AMA HCV Elevated LFTs f/u as outpatient Tobacco Abuse Continue nicotine patch and wean through time DVT prophylaxis Patient is ambulatory Discharge Planning 6-8 weeks of IV antibiotics, likely inpatient
[2017-09-16] MEDS: Senna/Docusate Sodium 8.6/50 MG Tablet PO SCH ×2 (09:43→21:35)
[2017-09-16 09:46] LABS: Baso % (Auto) 0.5 % (0.0-2.0); Eos # (Auto) 0.3 th/mm3 (0.0-0.4); Eos % (Auto) 6.4 % (0.0-4.0); Hematocrit 35.6 % (39.0-51.0); Hemoglobin 11.9 gm/dL (13.0-17.0); Lymph # (Auto) 1.8 th/mm3 (1.0-4.8); Lymph % (Auto) 43.3 % (9.0-44.0); Mean Corpuscular HGB Conc 33.4 % (32.0-36.0); Mean Corpuscular Hemoglobin 29.3 pg (27.0-34.0); Mean Corpuscular Volume 87.8 fL (80.0-100.0); Mono # (Auto) 0.2 th/mm3 (0.0-0.9); Mono % (Auto) 4.9 % (0.0-8.0); Neut # (Auto) 1.9 th/mm3 (1.8-7.7); Neut % (Auto) 44.9 % (16.0-70.0); Platelet Count 185 th/mm3 (150-450); Red Blood Count 4.06 mil/mm3 (4.50-5.90); Red Cell Distribution Width 14.1 % (11.6-17.2); White Blood Count 4.2 th/mm3 (4.0-11.0)
[2017-09-16 10:11] LABS: Albumin 3.3 g/dL (3.4-5.0); Anion Gap 11 meq/L (5-15); Aspartate Aminotransferase 70 U/L (15-37); Blood Urea Nitrogen 17 mg/dL (7-18); Carbon Dioxide 24.5 meq/L (21.0-32.0); Chloride 103 meq/L (98-107); Glomerular Filtration Rate 75 mL/min (>89); Glucose,Random 152 mg/dL (74-106); Potassium 3.3 meq/L (3.5-5.1); Sodium 138 meq/L (136-145)
[2017-09-16 10:12] LABS: Alanine Aminotransferase 121 U/L (12-78)
[2017-09-16 10:14] LABS: Alkaline Phosphatase 110 U/L (45-117)
--- NOTE | 2017-09-16 11:32 | P.PNIM ---
Subjective Interval history: Improved sleep with increased dose of Ambien. No other complaints today. No fevers. Physical Exam Vital signs: Vital Signs 09/15/17 12:00 09/15/17 20:00 09/16/17 00:00 Temperature 97.9 F 98.4 F 98.9 F Pulse Rate 116 H 109 H 79 Respiratory Rate 20 18 18 Blood Pressure 132/88 140/87 131/74 Pulse Oximetry 97 98 99 09/16/17 04:00 09/16/17 08:00 Temperature 97.3 F L 97.6 F Pulse Rate 85 84 Respiratory Rate 18 18 Blood Pressure 127/82 129/80 Pulse Oximetry 99 98 Intake & Output 09/15/17 09/16/17 09/16/17 18:59 06:59 18:59 Intake Total 820 / 820 100 / 100 Output Total 600 / 600 Balance 220 / 220 100 / 100 Intake: IV 100 / 100 100 / 100 Ancef Inj 1,000 MG In NS Inj 100 / 100 100 / 100 100 ML @ 200 mls/hr IV.SIG Q8H [facility] Rx#:[id number] Oral 720 / 720 Output: Urine 600 / 600 Other: Date of Last Bowel Movement 09/14/17 Narrative: GENERAL: NAD, A&Ox3 HEAD: Normocephalic. NECK: Supple, trachea midline. No lymphadenopathy. EYES: No scleral icterus. No injection or drainage. CARDIOVASCULAR: Regular rate and rhythm without murmurs, gallops, or rubs. RESPIRATORY: Breath sounds equal bilaterally. No accessory muscle use. GASTROINTESTINAL: Abdomen soft, non-tender, nondistended. MUSCULOSKELETAL: No cyanosis, or edema. SKIN: Warm and dry. Healing wound at lower back. NEURO: No focal neurological deficits. Results - Labs CBC & Chem 7: 09/16/17 09:35 09/16/17 09:35 Laboratory Results - last 24 hr 09/16/17 09/16/17 09:35 09:35 WBC 4.2 RBC 4.06 L Hgb 11.9 L Hct 35.6 L MCV 87.8 MCH 29.3 MCHC 33.4 RDW 14.1 Plt Count 185 MPV 10.0 Prelim Diff (Auto) Slide review pending Neut % (Auto) 44.9 Lymph % (Auto) 43.3 [place] % (Auto) 4.9 Eos % (Auto) 6.4 H Baso % (Auto) 0.5 Neut # (Auto) 1.9 Lymph # (Auto) 1.8 [place] # (Auto) 0.2 Eos # (Auto) 0.3 Baso # (Auto) 0.0 WBC Differential . Diff Scan Auto diff confirmed Differential Comment . Sodium 138 Potassium 3.3 L Chloride 103 Carbon Dioxide 24.5 Anion Gap 11 BUN 17 Creatinine 1.14 Estimated GFR 75 L Random Glucose 152 H Calcium 9.0 Total Bilirubin 0.3 AST 70 H ALT 121 H Alkaline Phosphatase 110 Total Protein 8.0 Albumin 3.3 L Assessment and Plan - Assessment (1) Epidural abscess Code(s): G06.2 - Extradural and subdural abscess, unspecified Status: Acute - Plan 32-year-old male with history of IV drug abuse admitted secondary to epidural abscess. No significant changes compared to yesterday. Continue monitoring for fevers. Patient sleeping better with Ambien. Epidural abscess S/P L2-3 decompressive laminectomy and evacuation of epidural abscess on 08/21 during prior hospitalization no further operative intervention indicated per neurosurgery Continue vanc and cefazolin ID following ID recommend 6-8 wks of antibiotics [place] and Toradol PRN Insomnia Continue Ambien 10 mg p.o. nightly as needed insomnia Superficial wound Healing through time Add Bactroban and twice daily dressing changes Continue vancomycin and cefazolin IVDU Counseled on the importance of cessation Pt planning on going to drug abuse rehab on discharge History of noncompliance/AMA HCV Elevated LFTs f/u as outpatient Tobacco Abuse Continue nicotine patch and wean through time DVT prophylaxis Patient is ambulatory Discharge Planning 6-8 weeks of IV antibiotics, likely inpatient
[2017-09-17] MEDS: Senna/Docusate Sodium 8.6/50 MG Tablet PO SCH ×2 (09:29→20:32)
[2017-09-17] MEDS ORDERED: Morphine Sulfate 30 MG SR Tablet PO ONE (13:05)
--- NOTE | 2017-09-17 13:11 | P.PNIM ---
Subjective Interval history: No acute complaints today. We discussed long-acting versus short-acting pain treatments. Physical Exam Vital signs: Vital Signs 09/16/17 16:00 09/16/17 20:00 09/17/17 00:00 Temperature 98 F 98 F 97.8 F Pulse Rate 95 H 95 H 98 H Respiratory Rate 18 18 16 Blood Pressure 121/69 124/72 112/70 Pulse Oximetry 99 95 100 09/17/17 08:00 Temperature 97.9 F Pulse Rate 87 Respiratory Rate 20 Blood Pressure 112/69 Pulse Oximetry 99 Intake & Output 09/16/17 09/17/17 09/17/17 18:59 06:59 18:59 Intake Total 760 / 760 100 / 100 100 / 100 Output Total 700 / 700 Balance 60 / 60 100 / 100 100 / 100 Intake: IV 200 / 200 100 / 100 100 / 100 Ancef Inj 1,000 MG In NS Inj 200 / 200 100 / 100 100 / 100 100 ML @ 200 mls/hr IV.SIG Q8H [facility] Rx#:[id number] Oral 560 / 560 Output: Urine 700 / 700 Other: Date of Last Bowel Movement 09/16/17 Narrative: GENERAL: NAD, A&Ox3 HEAD: Normocephalic. NECK: Supple, trachea midline. No lymphadenopathy. EYES: No scleral icterus. No injection or drainage. CARDIOVASCULAR: Regular rate and rhythm without murmurs, gallops, or rubs. RESPIRATORY: Breath sounds equal bilaterally. No accessory muscle use. GASTROINTESTINAL: Abdomen soft, non-tender, nondistended. MUSCULOSKELETAL: No cyanosis, or edema. SKIN: Warm and dry. Healing wound at lower back. NEURO: No focal neurological deficits. Results - Labs CBC & Chem 7: 09/16/17 09:35 09/16/17 09:35 Assessment and Plan - Assessment (1) Epidural abscess Code(s): G06.2 - Extradural and subdural abscess, unspecified Status: Acute - Plan 32-year-old male with history of IV drug abuse admitted secondary to epidural abscess. Long-acting morphine added as a pain treatment with plans to wean short acting treatment in future. Continue monitoring for fevers. Patient sleeping better with Ambien. Epidural abscess S/P L2-3 decompressive laminectomy and evacuation of epidural abscess on 08/21 during prior hospitalization no further operative intervention indicated per neurosurgery Continue vanc and cefazolin ID following ID recommend 6-8 wks of antibiotics [place] and Toradol PRN Insomnia Continue Ambien 10 mg p.o. nightly as needed insomnia Superficial wound Healing through time Add Bactroban and twice daily dressing changes Continue vancomycin and cefazolin IVDU Counseled on the importance of cessation Pt planning on going to drug abuse rehab on discharge History of noncompliance/AMA HCV Elevated LFTs f/u as outpatient Tobacco Abuse Continue nicotine patch and wean through time DVT prophylaxis Patient is ambulatory Discharge Planning 6-8 weeks of IV antibiotics, likely inpatient
[2017-09-18] MEDS: Morphine Sulfate 30 MG SR Tablet PO SCH ×2 (09:07→21:29)
[2017-09-18] MEDS: Senna/Docusate Sodium 8.6/50 MG Tablet PO SCH ×2 (09:08→23:39)
--- NOTE | 2017-09-18 11:35 | P.PNIM ---
Subjective Interval history: Oxybutynin has helped the patient sleep through the night without needing to urinate frequently. No other complaints today. Given history of IV drug abuse labs are pending to screen for hepatitis, HIV, and syphilis. Physical Exam Vital signs: Vital Signs 09/17/17 12:00 09/17/17 13:08 09/17/17 16:00 Temperature 97.8 F Pulse Rate 101 H Respiratory Rate 20 Blood Pressure 112/69 Pulse Oximetry 99 99 99 09/17/17 20:00 09/18/17 00:00 09/18/17 08:00 Temperature 98.2 F 97.8 F 98.1 F Pulse Rate 102 H 88 85 Respiratory Rate 18 18 16 Blood Pressure 124/78 112/70 104/68 Pulse Oximetry 100 98 98 Intake & Output 09/17/17 09/18/17 09/18/17 18:59 06:59 18:59 Intake Total 1120 / 1120 340 / 340 Output Total 500 / 500 900 / 900 Balance 620 / 620 -560 / -560 Weight 96 kg Intake: IV 200 / 200 100 / 100 Ancef Inj 1,000 MG In NS Inj 200 / 200 100 / 100 100 ML @ 200 mls/hr IV.SIG Q8H [facility] Rx#:[id number] Oral 920 / 920 240 / 240 Output: Urine 500 / 500 900 / 900 Other: # Bowel Movements 0 Narrative: GENERAL: NAD, A&Ox3 HEAD: Normocephalic. NECK: Supple, trachea midline. No lymphadenopathy. EYES: No scleral icterus. No injection or drainage. CARDIOVASCULAR: Regular rate and rhythm without murmurs, gallops, or rubs. RESPIRATORY: Breath sounds equal bilaterally. No accessory muscle use. GASTROINTESTINAL: Abdomen soft, non-tender, nondistended. MUSCULOSKELETAL: No cyanosis, or edema. SKIN: Warm and dry. Healing wound at lower back. NEURO: No focal neurological deficits. Results - Labs CBC & Chem 7: 09/16/17 09:35 09/16/17 09:35 Assessment and Plan - Assessment (1) Epidural abscess Code(s): G06.2 - Extradural and subdural abscess, unspecified Status: Acute - Plan 32-year-old male with history of IV drug abuse admitted secondary to epidural abscess. Pain treatment is improved. Urinary frequency also improved with oxybutynin. Screening for HIV, hepatitis, and syphilis. Epidural abscess S/P L2-3 decompressive laminectomy and evacuation of epidural abscess on 08/21 during prior hospitalization no further operative intervention indicated per neurosurgery Continue vanc and cefazolin ID following ID recommend 6-8 wks of antibiotics [place] and Toradol PRN Insomnia Continue Ambien 10 mg p.o. nightly as needed insomnia Oxybutynin continued for spastic bladder treatment Superficial wound Healing through time Add Bactroban and twice daily dressing changes Continue vancomycin and cefazolin IVDU Counseled on the importance of cessation Pt planning on going to drug abuse rehab on discharge History of noncompliance/AMA HCV Elevated LFTs f/u as outpatient Tobacco Abuse Continue nicotine patch and wean through time DVT prophylaxis Patient is ambulatory Discharge Planning 6-8 weeks of IV antibiotics, likely inpatient
[2017-09-18 16:18] LABS: Hepatitis A IgM Antibody Nonreactive (Nonreactive); Hepatitits B Surface Antigen Nonreactive (Nonreactive)
[2017-09-19] MEDS: Morphine Sulfate 30 MG SR Tablet PO SCH ×2 (09:00→21:32)
[2017-09-19] MEDS: Senna/Docusate Sodium 8.6/50 MG Tablet PO SCH ×2 (09:01→21:33)
--- NOTE | 2017-09-19 16:07 | P.PNIM ---
Subjective Interval history: Labs reviewed with patient. He is negative for syphilis, HIV, hepatitis A, E, and B. She did test positive for hepatitis C. The patient was suspicious that this has been something he was told in the past. Evidence confirms this. Physical Exam Vital signs: Vital Signs 09/18/17 20:00 09/18/17 22:00 09/19/17 00:00 Temperature 98 F 98.1 F Pulse Rate 101 H 92 H Respiratory Rate 16 18 16 Blood Pressure 125/80 126/76 Pulse Oximetry 98 99 09/19/17 08:00 09/19/17 12:00 Temperature 97.4 F L 97.9 F Pulse Rate 98 H 102 H Respiratory Rate 16 18 Blood Pressure 129/80 117/74 Pulse Oximetry 100 99 Intake & Output 09/18/17 09/19/17 09/19/17 18:59 06:59 18:59 Intake Total 620 / 620 920 / 920 Output Total 3300 / 3300 700 / 700 Balance -2680 / -2680 220 / 220 Weight 98 kg Intake: IV 100 / 100 200 / 200 Ancef Inj 1,000 MG In NS Inj 100 / 100 200 / 200 100 ML @ 200 mls/hr IV.SIG Q8H [facility] Rx#:[id number] Oral 520 / 520 720 / 720 Output: Urine 3300 / 3300 700 / 700 Other: Date of Last Bowel Movement 09/18/17 # Bowel Movements 1 0 Narrative: GENERAL: NAD, A&Ox3 HEAD: Normocephalic. NECK: Supple, trachea midline. No lymphadenopathy. EYES: No scleral icterus. No injection or drainage. CARDIOVASCULAR: Regular rate and rhythm without murmurs, gallops, or rubs. RESPIRATORY: Breath sounds equal bilaterally. No accessory muscle use. GASTROINTESTINAL: Abdomen soft, non-tender, nondistended. MUSCULOSKELETAL: No cyanosis, or edema. SKIN: Warm and dry. Healing wound at lower back. NEURO: No focal neurological deficits. Results - Labs CBC & Chem 7: 09/16/17 09:35 09/16/17 09:35 Laboratory Results - last 24 hr 09/18/17 09/18/17 14:12 14:12 RPR Nonreactive Hepatitis A IgM Ab Nonreactive Hep Bs Antigen Nonreactive Hep B Core IgM Ab Nonreactive Hep C IgG Ab Reactive H HIV 1&2 Ab/P24 Ag 4thGn Nonreactive Assessment and Plan - Assessment (1) Epidural abscess Code(s): G06.2 - Extradural and subdural abscess, unspecified Status: Acute - Plan 32-year-old male with history of IV drug abuse admitted secondary to epidural abscess. Positive hepatitis C on screening. No new complaints today. Epidural abscess S/P L2-3 decompressive laminectomy and evacuation of epidural abscess on 08/21 during prior hospitalization no further operative intervention indicated per neurosurgery Continue vanc and cefazolin ID following ID recommend 6-8 wks of antibiotics [place] and Toradol PRN Insomnia Continue Ambien 10 mg p.o. nightly as needed insomnia Oxybutynin continued for spastic bladder treatment Superficial wound Healing through time Add Bactroban and twice daily dressing changes Continue vancomycin and cefazolin IVDU Counseled on the importance of cessation Pt planning on going to drug abuse rehab on discharge History of noncompliance/AMA HCV Elevated LFTs Confirmed on lab testing f/u as outpatient Patient intends to follow-up in [place] with this condition for treatment, he has insurance in [place] Tobacco Abuse Continue nicotine patch and wean through time DVT prophylaxis Patient is ambulatory Discharge Planning 6-8 weeks of IV antibiotics, likely inpatient
[2017-09-20] MEDS: Morphine Sulfate 30 MG SR Tablet PO SCH ×2 (09:17→21:11)
[2017-09-20] MEDS: Senna/Docusate Sodium 8.6/50 MG Tablet PO SCH ×2 (09:20→21:12)
[2017-09-20 09:42] LABS: Baso % (Auto) 0.7 % (0.0-2.0); Eos # (Auto) 0.3 th/mm3 (0.0-0.4); Eos % (Auto) 6.6 % (0.0-4.0); Hemoglobin 11.8 gm/dL (13.0-17.0); Lymph % (Auto) 38.6 % (9.0-44.0); Mean Corpuscular HGB Conc 33.8 % (32.0-36.0); Mean Corpuscular Hemoglobin 29.9 pg (27.0-34.0); Mean Corpuscular Volume 88.4 fL (80.0-100.0); Mono # (Auto) 0.5 th/mm3 (0.0-0.9); Mono % (Auto) 9.3 % (0.0-8.0); Neut # (Auto) 2.3 th/mm3 (1.8-7.7); Neut % (Auto) 44.8 % (16.0-70.0); Platelet Count 166 th/mm3 (150-450); Red Blood Count 3.95 mil/mm3 (4.50-5.90); White Blood Count 5.2 th/mm3 (4.0-11.0)
[2017-09-20 10:01] LABS: Albumin 3.9 g/dL (3.4-5.0); Anion Gap 6 meq/L (5-15); Aspartate Aminotransferase 112 U/L (15-37); Blood Urea Nitrogen 14 mg/dL (7-18); Calcium 9.5 mg/dL (8.5-10.1); Carbon Dioxide 30.9 meq/L (21.0-32.0); Chloride 103 meq/L (98-107); Glomerular Filtration Rate 88 mL/min (>89); Glucose,Random 74 mg/dL (74-106); Potassium 4.2 meq/L (3.5-5.1); Sodium 140 meq/L (136-145)
[2017-09-20 10:02] LABS: Alanine Aminotransferase 170 U/L (12-78)
[2017-09-20 10:04] LABS: Alkaline Phosphatase 121 U/L (45-117); Total Protein 8.7 g/dL (6.4-8.2)
--- NOTE | 2017-09-20 11:17 | P.PNIM ---
Subjective Interval history: No significant changes today. Patient has no complaints. No fevers. Physical Exam Vital signs: Vital Signs 09/19/17 12:00 09/19/17 16:00 09/19/17 20:00 Temperature 97.9 F 98.4 F 98.1 F Pulse Rate 102 H 103 H 115 H Respiratory Rate 18 18 20 Blood Pressure 117/74 126/85 143/87 H Pulse Oximetry 99 97 97 09/20/17 08:00 Temperature 97.6 F Pulse Rate 90 Respiratory Rate 16 Blood Pressure 116/72 Pulse Oximetry 99 Intake & Output 09/19/17 09/20/17 09/20/17 18:59 06:59 18:59 Intake Total 1296 / 1296 1360 / 1360 Output Total 600 / 600 Balance 696 / 696 1360 / 1360 Intake: IV 200 / 200 100 / 100 Ancef Inj 1,000 MG In NS Inj 200 / 200 100 / 100 100 ML @ 200 mls/hr IV.SIG Q8H [facility] Rx#:[id number] Oral 1096 / 1096 1260 / 1260 Output: Urine 600 / 600 Other: # Voids 3 Date of Last Bowel Movement 09/19/17 # Bowel Movements 0 2 Narrative: GENERAL: NAD, A&Ox3 HEAD: Normocephalic. NECK: Supple, trachea midline. No lymphadenopathy. EYES: No scleral icterus. No injection or drainage. CARDIOVASCULAR: Regular rate and rhythm without murmurs, gallops, or rubs. RESPIRATORY: Breath sounds equal bilaterally. No accessory muscle use. GASTROINTESTINAL: Abdomen soft, non-tender, nondistended. MUSCULOSKELETAL: No cyanosis, or edema. SKIN: Warm and dry. Healing wound at lower back. NEURO: No focal neurological deficits. Results - Labs CBC & Chem 7: 09/20/17 08:10 09/20/17 08:10 Laboratory Results - last 24 hr 09/20/17 09/20/17 08:10 08:10 WBC 5.2 RBC 3.95 L Hgb 11.8 L Hct 35.0 L MCV 88.4 MCH 29.9 MCHC 33.8 RDW 14.0 Plt Count 166 MPV 11.0 Neut % (Auto) 44.8 Lymph % (Auto) 38.6 [place] % (Auto) 9.3 H Eos % (Auto) 6.6 H Baso % (Auto) 0.7 Neut # (Auto) 2.3 Lymph # (Auto) 2.0 [place] # (Auto) 0.5 Eos # (Auto) 0.3 Baso # (Auto) 0.0 WBC Differential . Differential Comment Auto diff final Sodium 140 Potassium 4.2 Chloride 103 Carbon Dioxide 30.9 Anion Gap 6 BUN 14 Creatinine 1.00 Estimated GFR 88 L Random Glucose 74 Calcium 9.5 Total Bilirubin 0.5 AST 112 H ALT 170 H Alkaline Phosphatase 121 H Total Protein 8.7 H D Albumin 3.9 Assessment and Plan - Assessment (1) Epidural abscess Code(s): G06.2 - Extradural and subdural abscess, unspecified Status: Acute - Plan 32-year-old male with history of IV drug abuse admitted secondary to epidural abscess. No new complaints today. Continue monitoring vital signs. Epidural abscess S/P L2-3 decompressive laminectomy and evacuation of epidural abscess on 08/21 during prior hospitalization no further operative intervention indicated per neurosurgery Continue vanc and cefazolin ID following ID recommend 6-8 wks of antibiotics [place] and Toradol PRN Insomnia Continue Ambien 10 mg p.o. nightly as needed insomnia Oxybutynin continued for spastic bladder treatment Superficial wound Healing through time Add Bactroban and twice daily dressing changes Continue vancomycin and cefazolin IVDU Counseled on the importance of cessation Pt planning on going to drug abuse rehab on discharge History of noncompliance/AMA HCV Elevated LFTs Confirmed on lab testing f/u as outpatient Patient intends to follow-up in [place] with this condition for treatment, he has insurance in [place] Tobacco Abuse Continue nicotine patch and wean through time DVT prophylaxis Patient is ambulatory Discharge Planning 6-8 weeks of IV antibiotics, inpatient
[2017-09-20] MEDS: diphenhydrAMINE 2%/Zinc Cream 30 GM Tube TOPICAL PRN (21:14)
[2017-09-21] MEDS: Morphine Sulfate 30 MG SR Tablet PO SCH ×2 (08:08→21:06)
[2017-09-21] MEDS: Senna/Docusate Sodium 8.6/50 MG Tablet PO SCH ×2 (08:12→21:09)
--- NOTE | 2017-09-21 14:14 | P.PNIM ---
Subjective Interval history: No complaints. No fevers. Ambulatory. Physical Exam Vital signs: Vital Signs 09/20/17 16:00 09/21/17 07:25 Temperature 98.0 F 98.1 F Pulse Rate 92 H 79 Respiratory Rate 16 16 Blood Pressure 119/74 98/60 L Pulse Oximetry 99 95 Intake & Output 09/20/17 09/21/17 09/21/17 18:59 06:59 18:59 Intake Total 660 / 660 880 / 880 100 / 100 Output Total 1800 / 1800 1300 / 1300 Balance -1140 / -1140 -420 / -420 100 / 100 Intake: IV 200 / 200 100 / 100 100 / 100 Ancef Inj 1,000 MG In NS Inj 200 / 200 100 / 100 100 / 100 100 ML @ 200 mls/hr IV.SIG Q8H [facility] Rx#:[id number] Oral 460 / 460 780 / 780 Output: Urine 1800 / 1800 1300 / 1300 Other: Date of Last Bowel Movement 09/19/17 09/19/17 # Bowel Movements 1 Narrative: GENERAL: NAD, A&Ox3 HEAD: Normocephalic. NECK: Supple, trachea midline. No lymphadenopathy. EYES: No scleral icterus. No injection or drainage. CARDIOVASCULAR: Regular rate and rhythm without murmurs, gallops, or rubs. RESPIRATORY: Breath sounds equal bilaterally. No accessory muscle use. GASTROINTESTINAL: Abdomen soft, non-tender, nondistended. MUSCULOSKELETAL: No cyanosis, or edema. SKIN: Warm and dry. Healing wound at lower back. NEURO: No focal neurological deficits. Results - Labs CBC & Chem 7: 09/20/17 08:10 09/20/17 08:10 Laboratory Results - last 24 hr 09/21/17 03:38 ESR 52 H Assessment and Plan - Assessment (1) Epidural abscess Code(s): G06.2 - Extradural and subdural abscess, unspecified Status: Acute - Plan 32-year-old male with history of IV drug abuse admitted secondary to epidural abscess. No new complaints today. Continue monitoring vital signs. Groin [place] Nystatin topical ointment Epidural abscess S/P L2-3 decompressive laminectomy and evacuation of epidural abscess on 08/21 during prior hospitalization no further operative intervention indicated per neurosurgery Continue vanc and cefazolin ID following ID recommend 6-8 wks of antibiotics [place] and Toradol PRN Insomnia Continue Ambien 10 mg p.o. nightly as needed insomnia Oxybutynin continued for spastic bladder treatment Superficial wound Healing through time Add Bactroban and twice daily dressing changes Continue vancomycin and cefazolin IVDU Counseled on the importance of cessation Pt planning on going to drug abuse rehab on discharge History of noncompliance/AMA HCV Elevated LFTs Confirmed on lab testing f/u as outpatient Patient intends to follow-up in [place] with this condition for treatment, he has insurance in [place] Tobacco Abuse Continue nicotine patch and wean through time DVT prophylaxis Patient is ambulatory Discharge Planning 6-8 weeks of IV antibiotics, inpatient
--- NOTE | 2017-09-22 09:24 | P.PNIM ---
Subjective Interval history: Nursing denies any deterioration since last night. Patient himself has no new complaints. Seen ambulating in hallway Physical Exam Vital signs: Vital Signs 09/21/17 12:00 09/21/17 20:00 09/22/17 00:00 Temperature 97.8 F 97.8 F Pulse Rate 93 H Respiratory Rate 18 15 20 Blood Pressure 99/58 L 141/80 H Pulse Oximetry 97 97 09/22/17 04:00 Temperature Pulse Rate Respiratory Rate 20 Blood Pressure Pulse Oximetry Intake & Output 09/21/17 09/22/17 09/22/17 18:59 06:59 18:59 Intake Total 1460 / 1460 580 / 580 Output Total 1300 / 1300 Balance 160 / 160 580 / 580 Weight 99.2 kg Intake: IV 200 / 200 100 / 100 Ancef Inj 1,000 MG In NS Inj 200 / 200 100 / 100 100 ML @ 200 mls/hr IV.SIG Q8H [facility] Rx#:[id number] Oral 780 / 780 480 / 480 Oral Supplement 480 / 480 Output: Urine 1300 / 1300 Other: # Voids 3 4 # Incontinent Voids 0 # Urine Diapers 0 Date of Last Bowel Movement 09/19/17 # Bowel Movements 1 Narrative: Prior surgical scar appears intact with no drainage, site' otherwise is clean dry and intact Ambulating up and down the hallway, is in no acute distress Results - Labs CBC & Chem 7: 09/20/17 08:10 09/20/17 08:10 Assessment and Plan - Assessment (1) Epidural abscess Code(s): G06.2 - Extradural and subdural abscess, unspecified Status: Acute - Plan 32-year-old male with history of IV drug abuse admitted secondary to epidural abscess. No new complaints today. Afebrile Groin [place] Nystatin topical ointment Epidural abscess S/P L2-3 decompressive laminectomy and evacuation of epidural abscess on 08/21 during prior hospitalization no further operative intervention indicated per neurosurgery Continue vanc and cefazolin ID following ID recommend 6-8 wks of antibiotics [place] and Toradol PRN Insomnia Continue Ambien as needed insomnia Oxybutynin continued for spastic bladder treatment Superficial wound Healing through time Bactroban and twice daily dressing changes Continue vancomycin and cefazolin IVDU Pt planning on going to drug abuse rehab on discharge History of noncompliance/AMA HCV Elevated LFTs Confirmed on lab testing f/u as outpatient Patient intends to follow-up in [place] with this condition for treatment, he has insurance in [place] Tobacco Abuse Continue nicotine patch and wean through time DVT prophylaxis Patient is ambulatory Addendum: Nurse reports that upon an afternoon vital sign check she found the patient to be acting very hyperactive, almost talking to himself. His blood pressure was 170s over 100s, pulse was in the 140s. Noted that the patient's girlfriend was also in the room and she appeared to be "passed out." There is a suspicion that the patient was actually using drugs in the room. Security was called and performed a room search and they found a back of what appeared to be some sort of illicit substance. UDS has been ordered. Discharge Planning 6-8 weeks of IV antibiotics, inpatient
[2017-09-22] MEDS: Morphine Sulfate 30 MG SR Tablet PO SCH ×2 (10:20→20:49)
[2017-09-22] MEDS: Senna/Docusate Sodium 8.6/50 MG Tablet PO SCH ×2 (10:22→20:51)
[2017-09-22 18:09] LABS: Amphetamine Screen,Urine Neg (Neg); Barbiturate Screen,Urine Neg (Neg); Cannabinoid Screen,Urine Neg (Neg); Cocaine Screen,Urine Neg (Neg)
[2017-09-22 18:23] LABS: Opiate Screen,Urine Pos (Neg)
[2017-09-23] MEDS: Morphine Sulfate 30 MG SR Tablet PO SCH ×2 (08:25→21:27)
[2017-09-23] MEDS: Senna/Docusate Sodium 8.6/50 MG Tablet PO SCH ×2 (08:26→21:27)
--- NOTE | 2017-09-23 15:39 | P.PNIM ---
Subjective Interval history: Nursing denies any deterioration since last night. Vital signs have unfortunately stable this morning. Patient has no new complaints himself. Physical Exam Vital signs: Vital Signs 09/22/17 18:17 09/22/17 20:00 09/23/17 08:00 Temperature 97.9 F 98.2 F 97.9 F Pulse Rate 144 H 76 80 Respiratory Rate 16 16 20 Blood Pressure 160/107 H 104/58 L 117/78 Pulse Oximetry 92 L 99 97 Intake & Output 09/22/17 09/23/17 09/23/17 18:59 06:59 18:59 Intake Total 820 / 820 680 / 680 100 / 100 Balance 820 / 820 680 / 680 100 / 100 Weight 99.8 kg Intake: IV 100 / 100 200 / 200 100 / 100 Ancef Inj 1,000 MG In NS Inj 100 / 100 200 / 200 100 / 100 100 ML @ 200 mls/hr IV.SIG Q8H [facility] Rx#:[id number] Oral 720 / 720 480 / 480 Other: # Voids 4 3 Date of Last Bowel Movement 09/19/17 09/19/17 # Bowel Movements 1 0 Narrative: Heart sounds regular rate rhythm, no murmurs Clear lungs bilaterally, unlabored breathing Results - Labs CBC & Chem 7: 09/20/17 08:10 09/20/17 08:10 Laboratory Results - last 24 hr 09/22/17 17:15 Urine Opiates Screen Pos H Ur Barbiturates Screen Neg Ur Amphetamines Screen Neg U Benzodiazepines Scrn Neg Urine Cocaine Screen Neg U Cannabinoids Screen Neg Assessment and Plan - Assessment (1) Epidural abscess Code(s): G06.2 - Extradural and subdural abscess, unspecified Status: Acute - Plan 32-year-old male with history of IV drug abuse admitted secondary to epidural abscess. No new complaints today. Afebrile Groin Andreia -Nystatin topical ointment Epidural abscess -S/P L2-3 decompressive laminectomy and evacuation of epidural abscess on 08/21 during prior hospitalization -no further operative intervention indicated per neurosurgery -Continue vanc and cefazolin -ID following -ID recommend 6-8 wks of antibiotics -[place] and Toradol PRN Insomnia -Continue Ambien as needed insomnia -Oxybutynin continued for spastic bladder treatment Superficial wound -Healing through time -Bactroban and twice daily dressing changes -Continue vancomycin and cefazolin IVDU -Pt planning on going to drug abuse rehab on discharge -History of noncompliance/AMA -UDS drug screen obtained from yesterday is positive only for opiates which is not truly revealing since the patient is receiving [place] while in-house. Suspect -the patient might have actually had administered some sort of stimulant given his sympathomimetic vital signs which are now normalized. Will avoid beta-blockers for the next 12 hours just in case. HCV Elevated LFTs -Confirmed on lab testing -f/u as outpatient -Patient intends to follow-up in [place] with this condition for treatment, he has insurance in [place] Tobacco Abuse -Continue nicotine patch and wean through time DVT prophylaxis -Patient is ambulatory Discharge Planning 6-8 weeks of IV antibiotics, inpatient
[2017-09-24] MEDS: Senna/Docusate Sodium 8.6/50 MG Tablet PO SCH ×2 (09:34→20:42)
[2017-09-24] MEDS: Morphine Sulfate 30 MG SR Tablet PO SCH ×2 (09:34→20:41)
--- NOTE | 2017-09-24 14:24 | P.PNIM ---
Subjective Interval history: Nursing denies any deterioration since last night. Patient himself says that 2 days ago when his friend walked in apparently intoxicated with some illicit substance, he says he did not partake in that activity. Says he did not snore nor inject. Physical Exam Vital signs: Vital Signs 09/23/17 16:00 09/23/17 20:00 09/24/17 08:00 Temperature 98.0 F 98.4 F 97.8 F Pulse Rate 92 H 96 H 86 Respiratory Rate 16 18 Blood Pressure 121/81 135/92 H 126/90 Pulse Oximetry 97 98 96 Intake & Output 09/23/17 09/24/17 09/24/17 18:59 06:59 18:59 Intake Total 1640 / 1640 340 / 340 Output Total 750 / 750 2 / 2 Balance 890 / 890 338 / 338 Weight 99.3 kg Intake: IV 200 / 200 100 / 100 Ancef Inj 1,000 MG In NS Inj 200 / 200 100 / 100 100 ML @ 200 mls/hr IV.SIG Q8H [facility] Rx#:[id number] Oral 1440 / 1440 240 / 240 Output: Urine 750 / 750 2 / 2 Other: Date of Last Bowel Movement 09/19/17 # Bowel Movements 1 Narrative: Unlabored breathing Unchanged clean dry back wound, dry, no drainage Results - Labs CBC & Chem 7: 09/20/17 08:10 09/20/17 08:10 Assessment and Plan - Assessment (1) Epidural abscess Code(s): G06.2 - Extradural and subdural abscess, unspecified Status: Acute - Plan 32-year-old male with history of IV drug abuse admitted secondary to epidural abscess. Doing well today. Epidural abscess -S/P L2-3 decompressive laminectomy and evacuation of epidural abscess on 08/21 during prior hospitalization -no further operative intervention indicated per neurosurgery -Continue vanc and cefazolin -ID following -ID recommend 6-8 wks of antibiotics -[place] and Toradol PRN Groin Andreia -Nystatin topical ointment Insomnia - ambien -Oxybutynin continued for spastic bladder treatment Superficial wound -Healing through time -Bactroban and twice daily dressing changes -Continue vancomycin and cefazolin IVDU -Pt planning on going to drug abuse rehab on discharge -History of noncompliance/AMA HCV -Patient intends to follow-up in [place] with this condition for treatment, he has insurance in [place] Tobacco Abuse -Continue nicotine patch and wean through time DVT prophylaxis -Patient is ambulatory Discharge Planning 6-8 weeks of IV antibiotics, inpatient
[2017-09-25] MEDS: Morphine Sulfate 30 MG SR Tablet PO SCH ×2 (10:26→21:01)
[2017-09-25] MEDS: Senna/Docusate Sodium 8.6/50 MG Tablet PO SCH ×2 (10:29→21:03)
--- NOTE | 2017-09-25 13:24 | P.PNIM ---
Subjective Interval history: Nursing denies any deterioration since last night. Patient himself has no new complaints. When I informed him that his back lesion appears to be bulging today, he does not endorse noticing it nor any new symptoms. Denies fevers or chills. Physical Exam Vital signs: Vital Signs 09/24/17 20:00 09/25/17 00:00 09/25/17 09:07 Temperature 98.3 F 98.0 F 98.7 F Pulse Rate 111 H 92 H 87 Respiratory Rate 18 18 20 Blood Pressure 143/94 H 121/82 132/52 L Pulse Oximetry 98 96 97 09/25/17 13:20 Temperature 97.8 F Pulse Rate 91 H Respiratory Rate 20 Blood Pressure 124/78 Pulse Oximetry 96 Intake & Output 09/24/17 09/25/17 09/25/17 18:59 06:59 18:59 Intake Total 920 / 920 681 / 681 Output Total 1500 / 1500 1000 / 1000 Balance -580 / -580 -319 / -319 Weight 95.5 kg Intake: IV 200 / 200 100 / 100 Ancef Inj 1,000 MG In NS Inj 200 / 200 100 / 100 100 ML @ 200 mls/hr IV.SIG Q8H [facility] Rx#:[id number] Oral 720 / 720 581 / 581 Output: Urine 1500 / 1500 1000 / 1000 Narrative: Indurated protruding golf ball sized edema noted on the patient's back where he had his previous incisional scar, no pus is expressed, there is no dawna superimposed erythema noted either. Results - Labs CBC & Chem 7: 09/20/17 08:10 09/20/17 08:10 Assessment and Plan - Assessment (1) Epidural abscess Code(s): G06.2 - Extradural and subdural abscess, unspecified Status: Acute - Plan 32-year-old male with history of IV drug abuse admitted secondary to epidural abscess. Epidural abscess - Will obtain ultrasound of soft tissue the back looking for recurring abscess. -S/P L2-3 decompressive laminectomy and evacuation of epidural abscess on 08/21 during prior hospitalization -no further operative intervention indicated per neurosurgery -Continue vanc and cefazolin -ID following -ID recommend 6-8 wks of antibiotics Groin Andreia -Nystatin topical ointment Insomnia - ambien -Oxybutynin continued for spastic bladder treatment Superficial wound -Healing through time -Bactroban and twice daily dressing changes -Continue vancomycin and cefazolin IVDU -Pt planning on going to drug abuse rehab on discharge -History of noncompliance/AMA HCV -Patient intends to follow-up in [place] with this condition for treatment, he has insurance in [place] Tobacco Abuse -Continue nicotine patch and wean through time DVT prophylaxis -Patient is ambulatory Discharge Planning 6-8 weeks of IV antibiotics, inpatient
--- NOTE | 2017-09-25 15:19 | US ---
EXAM DATE: 09/25/2017 3:06 PM EDT AGE/SEX: 32 years / Male INDICATIONS: Swelling and redness on back. CLINICAL DATA: This is the patient's initial encounter. Patient reports that signs and symptoms have been present for 4 - 6 days and indicates a pain score of 1/10. MEDICAL/SURGICAL HISTORY: Hepatitis C. IV drug abuse. Lumbar abscess. Appendectomy. COMPARISON: No prior exams available for comparison. FINDINGS: Complex area over the lumbar spine, right para midline measures 2.9 x 1.8 x 1.2 cm. Surrounding hyper emia. Smaller complex area just to the left of midline and more superiorly measures approximately 8 m m. CONCLUSION: 1. Complex area measuring 2.9 x 1.8 x 1.2 cm) midline over the lumbar spine. 2. Surrounding edema and hyperemia. Diagnostic considerations include hematoma or developing abscess . While there is some fluid in the collection, I do not see a discrete abscess collection at this cheli e. Electronically signed by: Noam Paul MD 09/25/2017 3:18 PM EDT
[2017-09-26] MEDS: Morphine Sulfate 30 MG SR Tablet PO SCH ×2 (08:40→21:04)
[2017-09-26] MEDS: Senna/Docusate Sodium 8.6/50 MG Tablet PO SCH ×2 (08:42→21:07)
--- NOTE | 2017-09-26 11:24 | P.CONNS ---
History of Present Illness Primary Care Provider: No Primary Care Physician Chief Complaint: History of epidural abscess History of Present Illness: Mr. Gabriel is a 32 y/o male who presented in early August with evidence of a lumbar epidural abscess. He underwent an emergent L2/3 laminectomy for epidural abscess evacuation by Dr. Christine on 08/22/17. He was initiated on IV antibiotics, but left AMA, returning several days later. He has been admitted since 09/03/17. Yesterday, the primary team ordered a lumbar ultrasound after observing a bulging around his lumbar incision. The radiologists noted a "complex area measuring 2.9 x 1.8 x 1.2 cm" that could be a "developing abscess versus hematoma" versus post-operative seroma. Mr. Gabriel denies tenderness to the area and denies noting any sensation of fullness in the region. Neurosurgery was re-consulted for evaluation. He has been on antibiotics since his re-admission on 09/03/17. Review of Systems No: All other systems reviewed negative except as stated in HPI [facility] - History History Provided By: Patient - Medical History Medical History: Medical History (Last Reviewed 09/10/17 @ 08:39 by Nicola Mosquera) Hepatitis C IV drug abuse - Surgical History Surgical History: Surgical History (Last Reviewed 09/10/17 @ 08:39 by Nicola Mosquera) History of appendectomy - Family History Family History: Family History (Last Reviewed 09/04/17 @ 00:15 by Nilda Cabezas RN) Other Diabetes - Tobacco History Second Hand Smoke Exposure: No Tobacco Use In Past 30 Days: Yes Smoking Status: Current every day smoker Tobacco Type: Cigarettes - Alcohol History How Often Do You Have a Drink Containing Alcohol: Never - Substance Use History Substance History: Active Abuse - Substance Use Type Opiates Status: Active Route Used: Intravenously Frequency: LAST USED 2 DAYS AGO, USES EVERY DAY Reason for Use: Feels Good - Travel History Recent Travel in the [place] Within the Last 8 Weeks: No Recent Travel Out of the Country Within the Last 8 Weeks: No - Immunization History Tetanus Immunization: <5 Years Hx Influenza Vaccine This Season: Yes Medications and Allergies Active Medications: Active Medications Acetaminophen (Tylenol) 650 mg PO Q4H PRN PRN Reason: Temp > 100.4 Last Admin: 09/10/17 21:19 Dose: 650 mg Hydrocodone Bitart/Acetaminophen ([place] 5/325) 1 tab PO Q4H PRN PRN Reason: BACK PAIN Last Admin: 09/26/17 06:49 Dose: 1 tab Al Hydroxide/Mg Hydroxide (Milk Of Magnesia Liq) 30 ml PO Q12H PRN PRN Reason: Mild Constipation Bisacodyl (Dulcolax Supp) 10 mg RECTAL DAILY PRN PRN Reason: SEVERE CONSITIPATION Cefazolin Sodium 1,000 mg/ (Sodium Chloride) 100 mls @ 200 mls/hr IV.SIG Q8H [facility] Last Infusion: 09/26/17 10:39 Dose: Infused Lactulose (Lactulose Liq) 30 ml PO DAILY PRN PRN Reason: SEVERE CONSITIPATION Morphine Sulfate (Oramorph Sr) 30 mg PO Q12HR [facility] Last Admin: 09/26/17 08:40 Dose: 30 mg Mupirocin (Bactroban 2% Cream) 1 applicatio TOPICAL BID [facility] Last Admin: 09/26/17 08:42 Dose: 1 applicatio Nicotine (Habitrol 14 Mg Patch.24 Hr) 1 patch T-DERMAL DAILY [facility] Last Admin: 09/26/17 09:54 Dose: 1 patch Nystatin (Mycostatin Oint) 1 applicatio TOPICAL QID [facility] Last Admin: 09/26/17 08:42 Dose: 1 applicatio Ondansetron HCl (Zofran Odt) 4 mg PO Q6H PRN PRN Reason: NAUSEA OR VOMITING Oxybutynin Chloride (Ditropan) 5 mg PO BID [facility] Last Admin: 09/26/17 08:39 Dose: 5 mg Patch Removal (Remove Old Patch) 1 each T-DERMAL Q24H [facility] Last Admin: 09/25/17 21:04 Dose: 1 each Senna/Docusate Sodium (Winter-Colace) 1 tab PO BID [facility] Last Admin: 09/26/17 08:42 Dose: Not Given Sennosides (Senokot) 17.2 mg PO Q12H PRN PRN Reason: Moderate Constipation Zinc Acetate/Diphenhydramine (Benadryl 2% Cream) 1 applicatio TOPICAL Q8H PRN PRN Reason: Itch around bandage Last Admin: 09/20/17 21:14 Dose: 1 applicatio Zolpidem Tartrate (Ambien) 10 mg PO HS PRN PRN Reason: INSOMNIA Last Admin: 09/25/17 21:05 Dose: 10 mg Allergies Allergy/AdvReac Type Severity Reaction Status Date / Time piperacillin [From Zosyn] Allergy unknown Verified 09/03/17 18:43 tazobactam [From Zosyn] Allergy unknown Verified 09/03/17 18:43 Home Medications Medication Instructions Recorded Confirmed Type No Known Home Medications 08/20/17 09/03/17 History Exam Vital signs: Vital Signs 09/25/17 13:20 09/25/17 17:36 09/25/17 20:00 Temperature 97.8 F 98.2 F 98.3 F Pulse Rate 91 H 94 H 100 H Respiratory Rate 20 20 15 Blood Pressure 124/78 123/79 150/76 H Pulse Oximetry 96 98 98 09/26/17 09:25 Temperature 97.9 F Pulse Rate 97 H Respiratory Rate 16 Blood Pressure 131/87 Pulse Oximetry 97 Intake & Output 09/25/17 09/26/17 09/26/17 18:59 06:59 18:59 Intake Total 680 / 680 340 / 340 100 / 100 Output Total 400 / 400 Balance 680 / 680 -60 / -60 100 / 100 Weight 94.8 kg Intake: IV 200 / 200 100 / 100 100 / 100 Ancef Inj 1,000 MG In NS Inj 200 / 200 100 / 100 100 / 100 100 ML @ 200 mls/hr IV.SIG Q8H [facility] Rx#:[id number] Oral 480 / 480 240 / 240 Output: Urine 400 / 400 Other: # Voids 350 3 # Bowel Movements 1 1 Narrative: Opens eyes spontaneously Alert and oriented x3 Follows commands x4 5/5 strength throughout Incision: Well healed. No drainage or tenderness on palpation. Mild erythema. No significant bulging. Results - Laboratory Findings CBC and BMP: 09/20/17 08:10 09/20/17 08:10 Abnormal lab findings: Abnormal Labs 09/04/17 09/04/17 09/05/17 06:14 06:14 11:00 RBC 4.06 L Hgb 11.9 L Hct 35.5 L MPV [place] % (Auto) 9.6 H Eos % (Auto) ESR Potassium 3.4 L Carbon Dioxide Anion Gap BUN 5 L Estimated GFR Random Glucose AST 61 H ALT 121 H Alkaline Phosphatase Total Protein Albumin Vancomycin Trough 10.7 H Urine Opiates Screen Hep C IgG Ab 09/07/17 09/08/17 09/10/17 11:55 03:55 03:50 RBC Hgb Hct MPV [place] % (Auto) Eos % (Auto) ESR Potassium Carbon Dioxide Anion Gap BUN Estimated GFR Random Glucose AST ALT Alkaline Phosphatase Total Protein Albumin Vancomycin Trough 20.4 H 14.4 H 24.7 H Urine Opiates Screen Hep C IgG Ab 09/11/17 09/11/17 09/11/17 08:39 08:39 08:39 RBC 3.88 L Hgb 11.4 L Hct 34.3 L MPV [place] % (Auto) Eos % (Auto) ESR 41 H Potassium Carbon Dioxide 32.5 H Anion Gap 3 L BUN Estimated GFR 68 L Random Glucose AST 82 H ALT 129 H Alkaline Phosphatase Total Protein Albumin 3.2 L Vancomycin Trough Urine Opiates Screen Hep C IgG Ab 09/15/17 09/15/17 09/16/17 08:10 08:10 09:35 RBC 4.12 L 4.06 L Hgb 12.1 L 11.9 L Hct 36.5 L 35.6 L MPV 11.1 H [place] % (Auto) Eos % (Auto) 6.4 H ESR Potassium Carbon Dioxide Anion Gap BUN Estimated GFR 78 L Random Glucose AST ALT Alkaline Phosphatase Total Protein Albumin Vancomycin Trough Urine Opiates Screen Hep C IgG Ab 09/16/17 09/18/17 09/20/17 09:35 14:12 08:10 RBC 3.95 L Hgb 11.8 L Hct 35.0 L MPV [place] % (Auto) 9.3 H Eos % (Auto) 6.6 H ESR Potassium 3.3 L Carbon Dioxide Anion Gap BUN Estimated GFR 75 L Random Glucose 152 H AST 70 H ALT 121 H Alkaline Phosphatase Total Protein Albumin 3.3 L Vancomycin Trough Urine Opiates Screen Hep C IgG Ab Reactive H 09/20/17 09/21/17 09/22/17 08:10 03:38 17:15 RBC Hgb Hct MPV [place] % (Auto) Eos % (Auto) ESR 52 H Potassium Carbon Dioxide Anion Gap BUN Estimated GFR 88 L Random Glucose AST 112 H ALT 170 H Alkaline Phosphatase 121 H Total Protein 8.7 H D Albumin Vancomycin Trough Urine Opiates Screen Pos H Hep C IgG Ab - Diagnostic Findings Additional findings: Lumbar ultrasound: radiology report reviewed. Assessment and Plan - Plan Mr. Gabriel is a 32 y/o male who presented in early August with evidence of a lumbar epidural abscess. He underwent an emergent L2/3 laminectomy for epidural abscess evacuation by Dr. Christine on 08/22/17. He was initiated on IV antibiotics, but left AMA, returning several days later. He has been admitted since 09/03/17, on antibiotics. Lumbar ultrasound ordered yesterday out of concern for "bulging" around the wound. Plan: Mr. Gabriel denies tenderness or sensation of fullness around the lumbar wound. If incision develops worsening erythema, drainage, or tenderness, consider CT guided aspiration of fluid collection identified on ultrasound. Clinically, given the external appearance of his wound and lack of tenderness, the fluid observed on lumbar ultrasound is most likely a post-operative seroma, rather than a new post-operative abscess. Low threshold for further evaluation.
--- NOTE | 2017-09-26 14:18 | P.PNIM ---
Subjective Interval history: Nursing denies any deterioration since last night. Patient himself has no new complaints. Has no pain in his back. Physical Exam Vital signs: Vital Signs 09/25/17 17:36 09/25/17 20:00 09/26/17 09:25 Temperature 98.2 F 98.3 F 97.9 F Pulse Rate 94 H 100 H 97 H Respiratory Rate 20 15 16 Blood Pressure 123/79 150/76 H 131/87 Pulse Oximetry 98 98 97 Intake & Output 09/25/17 09/26/17 09/26/17 18:59 06:59 18:59 Intake Total 680 / 680 340 / 340 100 / 100 Output Total 400 / 400 Balance 680 / 680 -60 / -60 100 / 100 Weight 94.8 kg Intake: IV 200 / 200 100 / 100 100 / 100 Ancef Inj 1,000 MG In NS Inj 200 / 200 100 / 100 100 / 100 100 ML @ 200 mls/hr IV.SIG Q8H [facility] Rx#:[id number] Oral 480 / 480 240 / 240 Output: Urine 400 / 400 Other: # Voids 350 3 # Bowel Movements 1 1 Narrative: Unchanged bulge noted over the thoracic upper lumbar area on back with no drainage, no tenderness, no fluctuance Results - Labs CBC & Chem 7: 09/20/17 08:10 09/20/17 08:10 - Imaging Impressions Soft Tissue Ultrasound 09/25/17 00:00 CONCLUSION: 1. Complex area measuring 2.9 x 1.8 x 1.2 cm) midline over the lumbar spine. 2. Surrounding edema and hyperemia. Diagnostic considerations include hematoma or developing abscess. While there is some fluid in the collection, I do not see a discrete abscess collection at this time. Assessment and Plan - Assessment (1) Epidural abscess Code(s): G06.2 - Extradural and subdural abscess, unspecified Status: Acute - Plan 32-year-old male with history of IV drug abuse admitted secondary to epidural abscess. Epidural abscess -S/P L2-3 decompressive laminectomy and evacuation of epidural abscess on 08/21 during prior hospitalization -no further operative intervention indicated per neurosurgery; lumbar ultrasound showing edema but no dawna abscess, appreciate neurology reevaluation -Continue vanc and cefazolin -ID recommend 6-8 wks of antibiotics, started treatment around 09/03, just recently completed week 3, at least 3-5 more weeks to go Groin Andreia -Nystatin topical ointment Insomnia - ambien -Oxybutynin continued for spastic bladder treatment Superficial wound -Healing through time -Bactroban and twice daily dressing changes -Continue vancomycin and cefazolin IVDU -Pt planning on going to drug abuse rehab on discharge -History of noncompliance/AMA HCV -Patient intends to follow-up in [place] with this condition for treatment, he has insurance in [place] Tobacco Abuse -Continue nicotine patch and wean through time DVT prophylaxis -Patient is ambulatory Discharge Planning 3-5 weeks of IV antibiotics, inpatient
[2017-09-26] MEDS: diphenhydrAMINE 2%/Zinc Cream 30 GM Tube TOPICAL PRN (21:05)
[2017-09-27] MEDS: Morphine Sulfate 30 MG SR Tablet PO SCH ×2 (08:41→21:19)
[2017-09-27] MEDS: Senna/Docusate Sodium 8.6/50 MG Tablet PO SCH ×2 (08:42→21:20)
--- NOTE | 2017-09-27 15:22 | P.PN ---
Subjective Interval history: Follow-up epidural abscess September 27, 2017-patient seen and examined, stable and no complaint. Currently afebrile Physical Exam Vital signs: Vital Signs 09/26/17 20:00 09/27/17 08:00 09/27/17 12:00 Temperature 99.7 F H 98.0 F 98.8 F Pulse Rate 110 H 87 106 H Respiratory Rate 18 16 16 Blood Pressure 141/77 H 115/66 137/70 Pulse Oximetry 97 97 99 Intake & Output 09/26/17 09/27/17 09/27/17 18:59 06:59 18:59 Intake Total 820 / 820 200 / 200 100 / 100 Output Total 900 / 900 Balance 820 / 820 -700 / -700 100 / 100 Intake: IV 100 / 100 200 / 200 100 / 100 Ancef Inj 1,000 MG In NS Inj 100 / 100 200 / 200 100 / 100 100 ML @ 200 mls/hr IV.SIG Q8H [facility] Rx#:[id number] Oral 720 / 720 Output: Urine 900 / 900 Other: # Voids 4 Narrative: GENERAL: NAD SKIN: Warm and dry. HEAD: Normocephalic. EYES: No scleral icterus. No injection or drainage. NECK: Supple, trachea midline. No JVD or lymphadenopathy. CARDIOVASCULAR: Regular rate and rhythm without murmurs, gallops, or rubs. RESPIRATORY: Breath sounds equal bilaterally. No accessory muscle use. GASTROINTESTINAL: Abdomen soft, non-tender, nondistended. MUSCULOSKELETAL: No cyanosis, or edema. BACK: Nontender without obvious deformity. No CVA tenderness. Results - Labs CBC & Chem 7: 09/20/17 08:10 09/20/17 08:10 Assessment and Plan - Assessment (1) Epidural abscess Code(s): G06.2 - Extradural and subdural abscess, unspecified Status: Acute - Plan 32-year-old man with Epidural abscess -S/P L2-3 decompressive laminectomy and evacuation of epidural abscess on 08/21 during prior hospitalization -no further operative intervention indicated per neurosurgery; lumbar ultrasound showing edema but no dawna abscess, appreciate neurology reevaluation -Continue vanc and cefazolin -ID recommend 6-8 wks of antibiotics, started treatment around 09/03, Groin Andreia -Resolved status post nystatin topical ointment Insomnia - ambien -Oxybutynin continued for spastic bladder treatment Superficial wound -Healing through time -Bactroban and twice daily dressing changes -Continue vancomycin and cefazolin IVDU -Pt planning on going to drug abuse rehab on discharge -History of noncompliance/AMA HCV -Patient intends to follow-up in [place] with this condition for treatment Tobacco Abuse -Continue nicotine patch DVT prophylaxis -Patient is ambulatory
[2017-09-27] MEDS: diphenhydrAMINE 2%/Zinc Cream 30 GM Tube TOPICAL PRN (21:20)
[2017-09-28] MEDS: Morphine Sulfate 30 MG SR Tablet PO SCH ×2 (08:39→21:15)
[2017-09-28] MEDS: Senna/Docusate Sodium 8.6/50 MG Tablet PO SCH ×2 (09:00→21:16)
--- NOTE | 2017-09-28 11:39 | P.PN ---
Subjective Interval history: Follow-up epidural abscess September 27, 2017-patient seen and examined, stable and no complaint. Currently afebrile September 28, 2017-patient seen and examined, he was up and ambulating in the hallway. No acute event overnight. Physical Exam Vital signs: Vital Signs 09/27/17 12:00 09/27/17 16:00 09/27/17 19:51 Temperature 98.8 F 98.1 F 98.1 F Pulse Rate 106 H 98 H 94 H Respiratory Rate Blood Pressure 137/70 134/74 114/60 Pulse Oximetry 99 100 99 09/28/17 08:00 09/28/17 10:35 Temperature 97.7 F Pulse Rate 96 H Respiratory Rate 20 Blood Pressure 153/92 H 128/82 Pulse Oximetry 100 Intake & Output 09/27/17 09/28/17 09/28/17 18:59 06:59 18:59 Intake Total 1040 / 1040 580 / 580 Output Total 900 / 900 Balance 140 / 140 580 / 580 Intake: IV 200 / 200 100 / 100 Ancef Inj 1,000 MG In NS Inj 200 / 200 100 / 100 100 ML @ 200 mls/hr IV.SIG Q8H [facility] Rx#:[id number] Oral 840 / 840 480 / 480 Output: Urine 900 / 900 Other: # Voids 3 # Bowel Movements 0 0 Narrative: GENERAL: NAD SKIN: Warm and dry. HEAD: Normocephalic. EYES: No scleral icterus. No injection or drainage. NECK: Supple, trachea midline. No JVD or lymphadenopathy. CARDIOVASCULAR: Regular rate and rhythm without murmurs, gallops, or rubs. RESPIRATORY: Breath sounds equal bilaterally. No accessory muscle use. GASTROINTESTINAL: Abdomen soft, non-tender, nondistended. MUSCULOSKELETAL: No cyanosis, or edema. BACK: Nontender without obvious deformity. No CVA tenderness. Results - Labs CBC & Chem 7: 09/20/17 08:10 09/20/17 08:10 Assessment and Plan - Assessment (1) Epidural abscess Code(s): G06.2 - Extradural and subdural abscess, unspecified Status: Acute - Plan 32-year-old man with Epidural abscess -S/P L2-3 decompressive laminectomy and evacuation of epidural abscess on 08/21 during prior hospitalization -no further operative intervention indicated per neurosurgery; lumbar ultrasound showing edema but no dawna abscess, appreciate neurology reevaluation -Continue vanc and cefazolin -ID recommend 6-8 wks of antibiotics, started treatment around 09/03, Groin Andreia -Resolved status post nystatin topical ointment Insomnia - ambien -Oxybutynin continued for spastic bladder treatment Superficial wound -Healing through time -Bactroban and twice daily dressing changes -Continue vancomycin and cefazolin IVDU -Pt planning on going to drug abuse rehab on discharge -History of noncompliance/AMA HCV -Patient intends to follow-up in [place] with this condition for treatment Tobacco Abuse -Continue nicotine patch DVT prophylaxis -Patient is ambulatory Continue current treatment as of September 28, 2017
[2017-09-29] MEDS: Morphine Sulfate 30 MG SR Tablet PO SCH ×2 (08:23→21:05)
[2017-09-29] MEDS: Senna/Docusate Sodium 8.6/50 MG Tablet PO SCH ×2 (08:29→21:06)
--- NOTE | 2017-09-29 11:27 | P.PN ---
Subjective Interval history: Follow-up epidural abscess September 27, 2017-patient seen and examined, stable and no complaint. Currently afebrile September 28, 2017-patient seen and examined, he was up and ambulating in the hallway. No acute event overnight. September 29, 2017-patient seen and examined; he was having breakfast this AM, stable and afebrile Physical Exam Vital signs: Vital Signs 09/28/17 12:00 09/28/17 20:00 09/29/17 08:00 Temperature 97.9 F 97.8 F 97.9 F Pulse Rate 104 H 92 H 87 Respiratory Rate 20 21 20 Blood Pressure 141/73 H 135/81 139/83 Pulse Oximetry 99 100 96 09/29/17 09:37 Temperature Pulse Rate Respiratory Rate 18 Blood Pressure Pulse Oximetry Intake & Output 09/28/17 09/29/17 09/29/17 18:59 06:59 18:59 Intake Total 200 / 200 780 / 780 Output Total 400 / 400 Balance 200 / 200 380 / 380 Weight 95.9 kg Intake: IV 200 / 200 100 / 100 Ancef Inj 1,000 MG In NS Inj 200 / 200 100 / 100 100 ML @ 200 mls/hr IV.SIG Q8H [facility] Rx#:[id number] Oral 680 / 680 Output: Urine 400 / 400 Narrative: GENERAL: NAD SKIN: Warm and dry. HEAD: Normocephalic. EYES: No scleral icterus. No injection or drainage. NECK: Supple, trachea midline. No JVD or lymphadenopathy. CARDIOVASCULAR: Regular rate and rhythm without murmurs, gallops, or rubs. RESPIRATORY: Breath sounds equal bilaterally. No accessory muscle use. GASTROINTESTINAL: Abdomen soft, non-tender, nondistended. MUSCULOSKELETAL: No cyanosis, or edema. BACK: Nontender without obvious deformity. No CVA tenderness. Results - Labs CBC & Chem 7: 09/20/17 08:10 09/20/17 08:10 Assessment and Plan - Assessment (1) Epidural abscess Code(s): G06.2 - Extradural and subdural abscess, unspecified Status: Acute - Plan 32-year-old man with Epidural abscess -S/P L2-3 decompressive laminectomy and evacuation of epidural abscess on 08/21 during prior hospitalization -no further operative intervention indicated per neurosurgery; lumbar ultrasound showing edema but no dawna abscess, appreciate neurology reevaluation -Continue vanc and cefazolin -ID recommend 6-8 wks of antibiotics, started treatment around 09/03, Groin Andreia -Resolved status post nystatin topical ointment Insomnia - ambien -Oxybutynin continued for spastic bladder treatment Superficial wound -Healing through time -Bactroban and twice daily dressing changes -Continue vancomycin and cefazolin IVDU -Pt planning on going to drug abuse rehab on discharge -History of noncompliance/AMA HCV -Patient intends to follow-up in [place] with this condition for treatment Tobacco Abuse -Continue nicotine patch DVT prophylaxis -Patient is ambulatory Continue current treatment as of September 29, 2017
[2017-09-30] MEDS: Morphine Sulfate 30 MG SR Tablet PO SCH ×2 (09:03→21:47)
[2017-09-30] MEDS: Senna/Docusate Sodium 8.6/50 MG Tablet PO SCH ×2 (09:03→21:47)
--- NOTE | 2017-09-30 09:40 | P.PN ---
Subjective Interval history: Follow-up epidural abscess September 27, 2017-patient seen and examined, stable and no complaint. Currently afebrile September 28, 2017-patient seen and examined, he was up and ambulating in the hallway. No acute event overnight. September 29, 2017-patient seen and examined; he was having breakfast this AM, stable and afebrile September 30, 2017-patient seen and examined, no acute event overnight, denies any chest pain or shortness of breath. Physical Exam Vital signs: Vital Signs 09/29/17 12:00 09/29/17 16:00 09/29/17 20:00 Temperature 97.8 F 97.7 F 98.2 F Pulse Rate 100 H 93 H 92 H Respiratory Rate Blood Pressure 147/95 H 142/78 H 129/63 Pulse Oximetry 97 100 98 Intake & Output 09/29/17 09/30/17 09/30/17 18:59 06:59 18:59 Intake Total 920 / 920 580 / 580 Output Total 800 / 800 Balance 120 / 120 580 / 580 Weight 96.3 kg Intake: IV 200 / 200 100 / 100 Ancef Inj 1,000 MG In NS Inj 200 / 200 100 / 100 100 ML @ 200 mls/hr IV.SIG Q8H [facility] Rx#:[id number] Oral 720 / 720 480 / 480 Output: Urine 800 / 800 Other: # Voids 4 # Bowel Movements 1 0 Narrative: GENERAL: NAD SKIN: Warm and dry. HEAD: Normocephalic. EYES: No scleral icterus. No injection or drainage. NECK: Supple, trachea midline. No JVD or lymphadenopathy. CARDIOVASCULAR: Regular rate and rhythm without murmurs, gallops, or rubs. RESPIRATORY: Breath sounds equal bilaterally. No accessory muscle use. GASTROINTESTINAL: Abdomen soft, non-tender, nondistended. MUSCULOSKELETAL: No cyanosis, or edema. BACK: Nontender without obvious deformity. No CVA tenderness. Results - Labs CBC & Chem 7: 09/20/17 08:10 09/20/17 08:10 Assessment and Plan - Assessment (1) Epidural abscess Code(s): G06.2 - Extradural and subdural abscess, unspecified Status: Acute - Plan 32-year-old man with Epidural abscess -S/P L2-3 decompressive laminectomy and evacuation of epidural abscess on 08/21 during prior hospitalization -no further operative intervention indicated per neurosurgery; lumbar ultrasound showing edema but no dawna abscess, appreciate neurology reevaluation -Continue vanc and cefazolin -ID recommend 6-8 wks of antibiotics, started treatment around 09/03, Groin Andreia -Resolved status post nystatin topical ointment Insomnia - ambien -Oxybutynin continued for spastic bladder treatment Superficial wound -Healing through time -Bactroban and twice daily dressing changes -Continue vancomycin and cefazolin IVDU -Pt planning on going to drug abuse rehab on discharge -History of noncompliance/AMA HCV -Patient intends to follow-up in [place] with this condition for treatment Tobacco Abuse -Continue nicotine patch DVT prophylaxis -Patient is ambulatory Continue current treatment as of September 30, 2017
[2017-10-01] MEDS: Senna/Docusate Sodium 8.6/50 MG Tablet PO SCH ×2 (08:53→21:12)
[2017-10-01] MEDS: Morphine Sulfate 30 MG SR Tablet PO SCH ×2 (09:16→21:11)
--- NOTE | 2017-10-01 11:47 | P.PN ---
Subjective Interval history: Follow-up epidural abscess September 27, 2017-patient seen and examined, stable and no complaint. Currently afebrile September 28, 2017-patient seen and examined, he was up and ambulating in the hallway. No acute event overnight. September 29, 2017-patient seen and examined; he was having breakfast this AM, stable and afebrile September 30, 2017-patient seen and examined, no acute event overnight, denies any chest pain or shortness of breath. October 01, 2017-patient seen and examined, remains stable, no change. Physical Exam Vital signs: Vital Signs 09/30/17 20:00 10/01/17 08:00 Temperature 98.5 F 98.4 F Pulse Rate 100 H 88 Respiratory Rate 16 20 Blood Pressure 148/84 H 105/67 Pulse Oximetry 96 99 Intake & Output 09/30/17 10/01/17 10/01/17 18:59 06:59 18:59 Intake Total 920 / 920 580 / 580 Balance 920 / 920 580 / 580 Weight 96 kg Intake: IV 200 / 200 100 / 100 Ancef Inj 1,000 MG In NS Inj 200 / 200 100 / 100 100 ML @ 200 mls/hr IV.SIG Q8H [facility] Rx#:[id number] Oral 720 / 720 480 / 480 Other: # Voids 4 4 # Bowel Movements 1 1 Narrative: GENERAL: NAD SKIN: Warm and dry. HEAD: Normocephalic. EYES: No scleral icterus. No injection or drainage. NECK: Supple, trachea midline. No JVD or lymphadenopathy. CARDIOVASCULAR: Regular rate and rhythm without murmurs, gallops, or rubs. RESPIRATORY: Breath sounds equal bilaterally. No accessory muscle use. GASTROINTESTINAL: Abdomen soft, non-tender, nondistended. MUSCULOSKELETAL: No cyanosis, or edema. BACK: Nontender without obvious deformity. No CVA tenderness. Results - Labs CBC & Chem 7: 09/20/17 08:10 09/20/17 08:10 Assessment and Plan - Assessment (1) Epidural abscess Code(s): G06.2 - Extradural and subdural abscess, unspecified Status: Acute - Plan 32-year-old man with Epidural abscess -S/P L2-3 decompressive laminectomy and evacuation of epidural abscess on 08/21 during prior hospitalization -no further operative intervention indicated per neurosurgery; lumbar ultrasound showing edema but no dawna abscess, appreciate neurology reevaluation -Continue vanc and cefazolin -ID recommend 6-8 wks of antibiotics, started treatment around 09/03, Groin Andreia -Resolved status post nystatin topical ointment Insomnia - ambien -Oxybutynin continued for spastic bladder treatment Superficial wound -Healing through time -Bactroban and twice daily dressing changes -Continue vancomycin and cefazolin IVDU -Pt planning on going to drug abuse rehab on discharge -History of noncompliance/AMA HCV -Patient intends to follow-up in [place] with this condition for treatment Tobacco Abuse -Continue nicotine patch DVT prophylaxis -Patient is ambulatory Continue current treatment as of October 01, 2017
[2017-10-02] MEDS: Morphine Sulfate 30 MG SR Tablet PO SCH ×2 (09:07→20:33)
[2017-10-02] MEDS: Senna/Docusate Sodium 8.6/50 MG Tablet PO SCH ×2 (09:07→20:34)
[2017-10-02] MEDS: diphenhydrAMINE 2%/Zinc Cream 30 GM Tube TOPICAL PRN ×2 (09:08→12:20)
--- NOTE | 2017-10-02 12:27 | P.PN ---
Subjective Interval history: ambulating in hallway, no back pain, no fever, no diarrhea,no rashes. No acute changes overnight Physical Exam Vital signs: Vital Signs 10/01/17 20:00 10/02/17 08:00 Temperature 98.1 F 97.3 F L Pulse Rate 93 H 76 Respiratory Rate 16 16 Blood Pressure 146/85 H 109/63 Pulse Oximetry 99 99 Intake & Output 10/01/17 10/02/17 10/02/17 18:59 06:59 18:59 Intake Total 1959 820 / 820 Output Total 1000 / 1000 Balance 1959 -180 / -180 Weight 97.6 kg Intake: IV 200 / 200 100 / 100 Ancef Inj 1,000 MG In NS Inj 200 / 200 100 / 100 100 ML @ 200 mls/hr IV.SIG Q8H [facility] Rx#:[id number] Oral 1760 / 1760 720 / 720 Output: Urine 1000 / 1000 Other: # Voids 4 # Bowel Movements 1 0 Narrative: GENERAL: well developed, well nourished male. SKIN: Warm and dry. HEAD: Normocephalic. EYES: No scleral icterus. No injection or drainage. NECK: Supple, trachea midline. No JVD or lymphadenopathy. CARDIOVASCULAR: Regular rate and rhythm without murmurs, gallops, or rubs. RESPIRATORY: Breath sounds equal bilaterally. No accessory muscle use. GASTROINTESTINAL: Abdomen soft, non-tender, nondistended. MUSCULOSKELETAL: No cyanosis, or edema. Lower back incision healing well, mild erythema, no open areas. BACK: Nontender without obvious deformity. No CVA tenderness. Results - Labs CBC & Chem 7: 09/20/17 08:10 09/20/17 08:10 Assessment and Plan - Assessment (1) Epidural abscess Code(s): G06.2 - Extradural and subdural abscess, unspecified Status: Acute (2) Substance abuse Code(s): F19.10 - Other psychoactive substance abuse, uncomplicated Status: Chronic - Plan 32-year-old man with epidural abscess, non compliant Epidural abscess -S/P L2-3 decompressive laminectomy and evacuation of epidural abscess on 08/21 during prior hospitalization -no further operative intervention indicated per neurosurgery; lumbar ultrasound showing edema but no dawna abscess, appreciate neurology reevaluation -Continue vanc and cefazolin -ID recommend 6-8 wks of antibiotics, started treatment around 7/23, Groin Andreia -Resolved status post nystatin topical ointment Insomnia - ambien Bladder spams -Oxybutynin continued for spastic bladder treatment Superficial wound -Healing well. -Bactroban and twice daily dressing changes -Continue vancomycin and cefazolin IVDU -Pt planning on going to drug abuse rehab on discharge -History of noncompliance/AMA HCV -Patient intends to follow-up in [place] with this condition for treatment Tobacco Abuse -Continue nicotine patch DVT prophylaxis -Patient is ambulatory Continue current treatment as of October 01, 2017 D/W pt, CM, RN
[2017-10-03] MEDS: Morphine Sulfate 30 MG SR Tablet PO SCH ×2 (08:46→20:24)
[2017-10-03] MEDS: Senna/Docusate Sodium 8.6/50 MG Tablet PO SCH ×2 (08:46→20:25)
--- NOTE | 2017-10-03 11:33 | P.DS ---
Date of admission: 09/03/17 19:42 Primary care physician: No Primary Care Physician Brief History from admission: 32-year-old male with past medical history significant for IV drug abuse and hepatitis C presents to the emergency department as a transfer from an outside hospital for the evaluation of epidural abscess with concern for osteomyelitis. The patient was recently treated [place] [facility] [place], underwent surgery with Dr. Christine, was placed on IV antibiotics and then left AGAINST MEDICAL ADVICE. The patient reports he was in his home town where he went to the hospital to have his sutures out when there was concern that he may have an infection in the region. There is surrounding erythema and he reports significant lower back pain that has not improved from the preoperative period. The patient denies any chest pain or shortness of breath. No fevers or chills. No abdominal pain. No nausea/vomiting/diarrhea. No loss of bowel or bladder function. No lateralizing signs/symptoms. No lower extremity weakness or footdrop. DS: Diagnosis - Discharge Diagnosis (1) Epidural abscess Status: Acute DS: Summary Hospital Course: This discharge summary is for discharge on 08/25/17. Mr. Gabriel is a 32 year old male. He has a history of IV Drug Abuse. He was admitted with an epidural abscess and diskitis. This was a return visit for the same complication for which he had previously left AMA. While hospitalized he had a L2/L3 Laminectomy. He was cleared by Neurosurgery. Treatment options for antibiotics were arranged by ID. He was clear for discharge on 08/25/17. - Time Spent with Patient Total time spent providing and/or coordinating discharge services: Less than 30 minutes - Quality: VTE Deep Vein Thrombosis/Pulmonary Embolism Present on Admission: No Exam Vital signs: Vital Signs 10/02/17 20:00 10/03/17 09:01 Temperature 97.9 F 97.4 F L Pulse Rate 91 H 89 Respiratory Rate 18 18 Blood Pressure 136/72 124/80 Pulse Oximetry 98 100 Intake & Output 10/02/17 10/03/17 10/03/17 18:59 06:59 18:59 Intake Total 400 / 400 100 / 100 100 / 100 Balance 400 / 400 100 / 100 100 / 100 Weight 97.2 kg Intake: IV 200 / 200 100 / 100 100 / 100 Ancef Inj 1,000 MG In NS Inj 200 / 200 100 / 100 100 / 100 100 ML @ 200 mls/hr IV.SIG Q8H [facility] Rx#:[id number] Oral 200 / 200 Other: # Voids 5 Date of Last Bowel Movement 10/02/17 10/02/17 Results Procedures completed during hospitalization: none - Impressions ITS Impressions Soft Tissue Ultrasound 09/25/17 00:00 CONCLUSION: 1. Complex area measuring 2.9 x 1.8 x 1.2 cm) midline over the lumbar spine. 2. Surrounding edema and hyperemia. Diagnostic considerations include hematoma or developing abscess. While there is some fluid in the collection, I do not see a discrete abscess collection at this time. Discharge Plan - Discharge Disposition Patient Disposition: 01 Discharge Home - Discharge Condition Condition: Stable - Physicians Team Primary Care Provider: Primary Care Shruti Dangelo Attending Provider: Joshua Jorge Other Providers: Milton Christine MD ; Senia Botello MD ; Edmund Corley MD
--- NOTE | 2017-10-03 16:21 | P.PN ---
Subjective Interval history: ambulating in hallway, has no complaints, tolerating abx well, no fever. Physical Exam Vital signs: Vital Signs 10/02/17 20:00 10/03/17 09:01 Temperature 97.9 F 97.4 F L Pulse Rate 91 H 89 Respiratory Rate 18 18 Blood Pressure 136/72 124/80 Pulse Oximetry 98 100 Intake & Output 10/02/17 10/03/17 10/03/17 18:59 06:59 18:59 Intake Total 400 / 400 100 / 100 100 / 100 Balance 400 / 400 100 / 100 100 / 100 Weight 97.2 kg Intake: IV 200 / 200 100 / 100 100 / 100 Ancef Inj 1,000 MG In NS Inj 200 / 200 100 / 100 100 / 100 100 ML @ 200 mls/hr IV.SIG Q8H [facility] Rx#:[id number] Oral 200 / 200 Other: # Voids 5 Date of Last Bowel Movement 10/02/17 10/02/17 Narrative: GENERAL: well developed, well nourished male. SKIN: Warm and dry. HEAD: Normocephalic. EYES: No scleral icterus. No injection or drainage. NECK: Supple, trachea midline. No JVD or lymphadenopathy. CARDIOVASCULAR: Regular rate and rhythm without murmurs, gallops, or rubs. RESPIRATORY: Breath sounds equal bilaterally. No accessory muscle use. GASTROINTESTINAL: Abdomen soft, non-tender, nondistended. MUSCULOSKELETAL: No cyanosis, or edema. Lower back incision healing well, mild erythema, no open areas. BACK: Nontender without obvious deformity. No CVA tenderness. Results - Labs CBC & Chem 7: 09/20/17 08:10 09/20/17 08:10 - Procedures none Assessment and Plan - Assessment (1) Epidural abscess Code(s): G06.2 - Extradural and subdural abscess, unspecified Status: Acute (2) Substance abuse Code(s): F19.10 - Other psychoactive substance abuse, uncomplicated Status: Chronic - Plan 32-year-old man with epidural abscess, non compliant Epidural abscess -S/P L2-3 decompressive laminectomy and evacuation of epidural abscess on 08/21 during prior hospitalization -no further operative intervention indicated per neurosurgery; lumbar ultrasound showing edema but no dawna abscess, appreciate neurology reevaluation -Continue vanc and cefazolin -ID recommend 6-8 wks of antibiotics, started treatment around 09/03, Groin Andreia -Resolved status post nystatin topical ointment Insomnia - ambien Bladder spams -Oxybutynin continued for spastic bladder treatment Superficial wound -Healing well. -Bactroban and twice daily dressing changes -Continue vancomycin and cefazolin IVDU -Pt planning on going to drug abuse rehab on discharge -History of noncompliance/AMA HCV -Patient intends to follow-up in [place] with this condition for treatment Tobacco Abuse -Continue nicotine patch DVT prophylaxis -Patient is ambulatory We will check labs in the morning D/W pt, CM, RN
[2017-10-04] MEDS: Morphine Sulfate 30 MG SR Tablet PO SCH (08:17)
[2017-10-04] MEDS: Senna/Docusate Sodium 8.6/50 MG Tablet PO SCH (08:19)
[2017-10-04 11:46] LABS: Hematocrit 34.6 % (39.0-51.0); Hemoglobin 11.5 gm/dL (13.0-17.0); Mean Corpuscular HGB Conc 33.2 % (32.0-36.0); Mean Corpuscular Hemoglobin 29.5 pg (27.0-34.0); Mean Corpuscular Volume 88.7 fL (80.0-100.0); Mean Platelet Volume 10.4 fL (7.0-11.0); Platelet Count 166 th/mm3 (150-450); Red Cell Distribution Width 13.9 % (11.6-17.2); White Blood Count 5.7 th/mm3 (4.0-11.0)
--- NOTE | 2017-10-04 11:59 | P.PN ---
Subjective Interval history: no complaints of pain, no fever, no cp, no sob. Ambulating okay. Wants to sign out AMA, states he has to go to [place] with his father. His father has been staying in hotels and spent a considerable amount. He plans to fly out tomorrow and plans to go to [facility] to finish his treatment. Discussed in detail consequences of not finishing treatment such as worsening infection, sepsis, paralysis, poss . Verbalizes understanding. Encouraged to abstain from drugs as well. Physical Exam Vital signs: Vital Signs 10/03/17 21:40 10/04/17 08:00 Temperature 98.2 F 97.7 F Pulse Rate 72 73 Respiratory Rate 18 17 Blood Pressure 120/78 112/64 Pulse Oximetry 100 98 Intake & Output 10/03/17 10/04/17 10/04/17 18:59 06:59 18:59 Intake Total 820 / 820 200 / 200 100 / 100 Balance 820 / 820 200 / 200 100 / 100 Intake: IV 100 / 100 200 / 200 100 / 100 Ancef Inj 1,000 MG In NS Inj 100 / 100 200 / 200 100 / 100 100 ML @ 200 mls/hr IV.SIG Q8H [facility] Rx#:[id number] Oral 720 / 720 Other: # Voids 5 Date of Last Bowel Movement 10/02/17 # Bowel Movements 1 Narrative: GENERAL: well developed, well nourished male. SKIN: Warm and dry. HEAD: Normocephalic. EYES: No scleral icterus. No injection or drainage. NECK: Supple, trachea midline. No JVD or lymphadenopathy. CARDIOVASCULAR: Regular rate and rhythm without murmurs, gallops, or rubs. RESPIRATORY: Breath sounds equal bilaterally. No accessory muscle use. GASTROINTESTINAL: Abdomen soft, non-tender, nondistended. MUSCULOSKELETAL: No cyanosis, or edema. Lower back incision healing well, mild erythema, no open areas. BACK: Nontender without obvious deformity. No CVA tenderness. Results - Labs CBC & Chem 7: 10/04/17 11:17 09/20/17 08:10 Laboratory Results - last 24 hr 10/04/17 11:17 WBC 5.7 RBC 3.90 L Hgb 11.5 L Hct 34.6 L MCV 88.7 MCH 29.5 MCHC 33.2 RDW 13.9 Plt Count 166 MPV 10.4 - Procedures none Assessment and Plan - Assessment (1) Epidural abscess Code(s): G06.2 - Extradural and subdural abscess, unspecified Status: Acute (2) Substance abuse Code(s): F19.10 - Other psychoactive substance abuse, uncomplicated Status: Chronic - Plan 32-year-old man with epidural abscess, non compliant Epidural abscess -S/P L2-3 decompressive laminectomy and evacuation of epidural abscess on 08/21 during prior hospitalization -no further operative intervention indicated per neurosurgery; lumbar ultrasound showing edema but no dawna abscess, appreciate neurology reevaluation -Continue vanc and cefazolin -ID recommend 6-8 wks of antibiotics, started treatment around 09/03, Groin Andreia -Resolved status post nystatin topical ointment Insomnia - ambien Bladder spams -Oxybutynin continued for spastic bladder treatment Superficial wound -Healing well. -Bactroban and twice daily dressing changes -Continue vancomycin and cefazolin IVDU -Pt planning on going to drug abuse rehab on discharge -History of noncompliance/AMA HCV -Patient intends to follow-up in [place] with this condition for treatment Tobacco Abuse -Continue nicotine patch DVT prophylaxis -Patient is ambulatory Pt. wants to leave against medica advise. He has been counselled extensively of risk involved with leaving before finishing antibiotics, such as worsening infection, sepsis, possible paralysis, even . Patient verbalizes understanding. He plans to fly to [place] tomorrow and will check in at [facility] to finish antibiotics. He will be flying out with his father. Instructed that if symptoms recur such as fever, malaise, body aches, drainage from wound, he needs to return to the hospital. Counseled to abstain from drugs.
[2017-10-04 12:22] LABS: Calcium 9.2 mg/dL (8.5-10.1); Carbon Dioxide 32.5 meq/L (21.0-32.0); Potassium 3.8 meq/L (3.5-5.1)
--- NOTE | 2017-10-04 18:33 | P.AMA ---
AMA Note - AMA Note Recommended Treatment Course: Instructed to seek medical care in [place] to complete antibiotics AMA Statement: Patient Seb Gabriel has decided to leave the hospital against medical advice. This patient has the capacity to refuse care and understands the risks of leaving, including permanent disability and/or , and has had an opportunity to ask questions about his/her condition. The patient has been informed that he/she may return for care at any time, and follow up has been arranged/advised. - AMA Note Discharge Disposition: Left Against Medical Advice Patient Condition on Discharge: Stable
--- NOTE | 2017-10-04 18:40 | P.DS ---
Date of admission: 09/03/17 19:42 Primary care physician: No Primary Care Physician Attending physician on discharge: Joshua Jorge Brief History from admission: 32-year-old male with past medical history significant for IV drug abuse and hepatitis C presents to the emergency department as a transfer from an outside hospital for the evaluation of epidural abscess with concern for osteomyelitis. The patient was [place] [facility], underwent surgery with Dr. Christine, was placed on IV antibiotics and then left AGAINST MEDICAL ADVICE. The patient reports he was in his home town where he went to the hospital to have his sutures out when there was concern that he may have an infection in the region. There is surrounding erythema and he reports significant lower back pain that has not improved from the preoperative period. The patient denies any chest pain or shortness of breath. No fevers or chills. No abdominal pain. No nausea/vomiting/diarrhea. No loss of bowel or bladder function. No lateralizing signs/symptoms. No lower extremity weakness or footdrop. DS: Diagnosis - Discharge Diagnosis (1) Epidural abscess Status: Acute (2) S/P lumbar laminectomy Status: Acute DS: Medications - Discharge Medications Prescriptions: oxybutynin chloride 5 mg PO BID 30 Days #60 tab DS: Summary Hospital Course: 32-year-old male with past medical history significant for IV drug abuse and hepatitis C presented to the emergency department as a transfer from an outside hospital for the evaluation of epidural abscess with concern for osteomyelitis. The patient was recently treated [place] [facility] [place], underwent surgery with Dr. Christine, was placed on IV antibiotics and then left AGAINST MEDICAL ADVICE. The patient reported he was in his home town where he went to the hospital to have his sutures out when there was concern that he may have an infection in the region. There was surrounding erythema and he reported significant lower back pain that has not improved from the preoperative period. The patient denied any chest pain or shortness of breath. No fevers or chills. No abdominal pain. No nausea/vomiting/diarrhea. No loss of bowel or bladder function. No lateralizing signs/symptoms. No lower extremity weakness or footdrop. During the course of the hospitalization, pt. was restarted on Abx. Consultation were obtained from neurosurgery and ID. Per neurosurgery, no further operative intervention indicated per neurosurgery; lumbar ultrasound showing edema but no dawna abscess Continued vanc and cefazolin ID recommend 6-8 wks of antibiotics, started treatment around 09/03, Found with Groin Andreia-Resolved status post nystatin topical ointment C/O bladder spams, Oxybutynin started and symptoms were relieved. Superficial wound to back healing well, was treated with Bactroban twice daily dressing changes Hx of IVDU--Pt planning on going to drug abuse rehab on discharge. Hx of HCV-Patient intended to follow-up in [place] with this condition for treatment Pt. did well, labs stable, no fever. Was ambulatory. Pt. decided to sign out AMA due to personal issues with his father spending too much money in hotels while he was in the hospital. He was counselled extensively of risk involved with leaving before finishing antibiotics, such as worsening infection, sepsis, possible paralysis, even . Patient verbalized understanding. He planned to fly to [place] the next day and [facility] [place] [facility]. Instructed that if symptoms recur such as fever, malaise, body aches, drainage from wound, he needs to return to the hospital. Counseled to abstain from drugs. - Time Spent with Patient Total time spent providing and/or coordinating discharge services: Less than 30 minutes - Quality: VTE Deep Vein Thrombosis/Pulmonary Embolism Present on Admission: No Exam Vital signs: Vital Signs 10/03/17 21:40 10/04/17 08:00 Temperature 98.2 F 97.7 F Pulse Rate 72 73 Respiratory Rate 18 17 Blood Pressure 120/78 112/64 Pulse Oximetry 100 98 Intake & Output 10/03/17 10/04/17 10/04/17 18:59 06:59 18:59 Intake Total 820 / 820 200 / 200 100 / 100 Balance 820 / 820 200 / 200 100 / 100 Intake: IV 100 / 100 200 / 200 100 / 100 Ancef Inj 1,000 MG In NS Inj 100 / 100 200 / 200 100 / 100 100 ML @ 200 mls/hr IV.SIG Q8H BOOKER Rx#:[id number] Oral 720 / 720 Other: # Voids 5 Date of Last Bowel Movement 10/02/17 10/04/17 # Bowel Movements 1 Results Procedures completed during hospitalization: none Labs on day of discharge: Labs from last 24 hours 10/04/17 10/04/17 11:17 11:17 WBC 5.7 RBC 3.90 L Hgb 11.5 L Hct 34.6 L MCV 88.7 MCH 29.5 MCHC 33.2 RDW 13.9 Plt Count 166 MPV 10.4 Sodium 141 Potassium 3.8 Chloride 101 Carbon Dioxide 32.5 H Anion Gap 8 BUN 10 Creatinine 1.01 Estimated GFR 87 L Random Glucose 68 L Calcium 9.2 - Impressions ITS Impressions Soft Tissue Ultrasound 09/25/17 00:00 CONCLUSION: 1. Complex area measuring 2.9 x 1.8 x 1.2 cm) midline over the lumbar spine. 2. Surrounding edema and hyperemia. Diagnostic considerations include hematoma or developing abscess. While there is some fluid in the collection, I do not see a discrete abscess collection at this time. Discharge Plan - Discharge Disposition Patient Disposition: Left Against Medical Advice - Discharge Condition Condition: Stable - Discharge Order Discharge Orders: AMA Discharge (Routine); Ordered 10/04/17 Ordered By: Wendy Herr - Physicians Team Primary Care Provider: Primary Care Loreto,Shruti Attending Provider: Joshua Jorge Other Providers: Milton Christine MD ; Senia Botello MD ; Edmund Corley MD
== END 2017-10-04 12:05 | disposition left against medical advice (07) ==
LOC: NEPE 17:57 → NEDA 19:42 → NEPGCP 23:43 → N04 09-05 17:17
PROVIDERS: ADMIT Internal Medicine; ATTEND Internal Medicine